=== PATIENT | male | born 1965 | race Caucasian/White ===

== ENCOUNTER 2020-05-02 12:02 | Emergency (ER) | payer OTHER, SELFPAY ==
[2020-05-02 12:51] VITALS: BP 147/64; PULSE 76; RESP 16; TEMP 36.1; O2SAT 96; BMI 56.9
--- NOTE | 2020-05-02 13:17 | ED.SKABFB ---
HPI - Skin/Abscess/Foreign Bdy General Chief complaint: Skin/Abscess/Foreign Body Stated complaint: rash Time Seen by Provider: 05/02/20 13:17 Source: patient Mode of arrival: ambulatory Limitations: no limitations History of Present Illness HPI narrative: 55 y/o male presenting with diffuse body itching. He states he was recently treated with permethrin for scabies. He states he used the treatment and washed his sheets however he still has itching all over, worse at night, worse in his feet, groin, buttocks, neck and head. He also reports nausea and central abdominal discomfort. He also reports a sore throat and swollen tonsils. He says his body is fighting some kind of infection and is overwhelmed by it. He denies fever, chills, vomiting, SOB, chest pain, urinary symptoms. He reports a rash on his right arm and neck. Related Data Home Medications Medication Instructions Recorded Confirmed baclofen 1 tab PO TID PRN 05/02/20 05/02/20 cholecalciferol (vitamin D3) 1 tab PO DAILY 05/02/20 05/02/20 cholecalciferol (vitamin D3) 1 tab PO DAILY 05/02/20 05/02/20 [Vitamin D3] clonidine HCl 1 tab PO TID 05/02/20 05/02/20 hydroxyzine pamoate PO 05/02/20 omeprazole 1 cap PO DAILY 05/02/20 05/02/20 permethrin 1 applic TOPICAL ONCE 05/02/20 05/02/20 quetiapine 1 tab PO BID 05/02/20 05/02/20 Previous Rx's Medication Instructions Recorded hydrocortisone 1 appl TOPICAL TID PRN #30 g 05/02/20 permethrin 1 appl TOPICAL ONCE 1 Days #60 g 05/02/20 Allergies Allergy/AdvReac Type Severity Reaction Status Date / Time vancomycin [Vancomycin] Allergy Mild HIVES Unverified 02/20/20 15:03 Review of Systems Review of Systems: Constitutional: No Fever, No Chills ENT/Mouth: + sore throat, No Rhinorrhea, No Swallowing Difficulty Eyes: No Eye Pain, No Swelling, No Redness Cardiovascular: No Chest Pain, No SOB, No Orthopnea, + Edema Respiratory: No Cough, No Sputum, No Wheezing, No dyspnea Gastrointestinal: +Nausea, No Vomiting, No Diarrhea, + abdominal Pain Genitourinary: No Dysuria, No Urinary Frequency, No Hematuria Musculoskeletal: No joint pain, + Myalgias Skin: + Skin Lesions, + rash Neuro: No Weakness, No Numbness, No Dizziness, + Headache Psych: + Anxiety/Panic, No Depression Heme/Lymph: No Bruising, No Lymphadenopathy Endocrine: No Polyuria, No Polydipsia PMF Past Medical History Attestation statement: The following information was validated with the patient. Medical History Arthritis Social History Social History Advance Directives: No Advance Directives Information Provided: No Physical Exam Vital Signs: Vital Signs: Last Vital Signs Temp 96.9 F 05/02/20 12:51 Pulse 76 05/02/20 12:51 Resp 16 05/02/20 12:51 BP 147/64 H 05/02/20 12:51 Pulse Ox 96 05/02/20 12:51 Body Mass Index 56.9 Appearance: Alert. Oriented X3. No acute distress. HEENT: normal inspection, no rashes or bites. CVS: Normal heart rate and rhythm. Pulses normal. Respiratory: No respiratory distress. Skin: Skin warm and dry. Normal skin color. Normal skin turgor. No rashes. Extremities: trace lower extremity edema, no rashes or lesions appreciated. Bottom of bilateral feet with dry flaky skin under toes. Neuro: Oriented X 3. No motor deficit. No sensory deficit. Course Course Course Narrative: 55 yo male presenting with multiple complaints. No rash or bites noted on exam. Doubt bed bugs. No evidence of current scabies infection or any other rash noted on exam. He is demanding blood work, urine test and strep throat test. Suspect psychogenic componenet. Reevaluation(s) Reevaluation #1: Lab work up was normal. Patient now stating that he did not read the instructions on the Permethrin and washed the treatment off after <1 hour. He is requesting repeat treatment. He is stable for discharge and will follow up with his doctor on Monday. MDM - Skin/Abscess/Foreign Bdy Lab Data Attestation: I reviewed the patient's lab results. Result diagrams: 05/02/20 13:53 05/02/20 13:53 Labs: Lab Results 11/28/20 11/28/20 11/28/20 Range/Units 13:40 13:53 13:53 WBC 7.5 (4.8-10.8) X10*3/uL RBC 4.31 L (4.60-5.80) X10*6/uL Hgb 12.0 L (14.0-18.0) g/dl Hct 36.6 L (42-52) % MCV 84.9 (80-98) fL MCH 27.8 (27.0-33.0) pg MCHC 32.8 (31.0-36.0) g/dl RDW 13.3 (11.0-16.0) % Plt Count 268 (160-400) X10*3/uL MPV 9.7 (9.4-12.4) fL Immature Gran % (Auto) 0.3 (0.0-0.4) % Neut % (Auto) 45.2 (45-73) % Lymph % (Auto) 45.3 H (20-40) % [place] % (Auto) 8.4 (2-11) % Eos % (Auto) 0.4 (0-4) % Baso % (Auto) 0.4 (0-2) % Lymph # (Auto) 3.4 (1.2-4.9) X10*3/uL [place] # (Auto) 0.6 (0.1-1.2) X10*3/uL Eos # (Auto) 0.0 (0.0-0.4) X10*3/uL Baso # (Auto) 0.0 (0.0-0.2) X10*3/uL Abs Immat Gran (auto) 0.02 (0.00-0.03) X10*3/uL Absolute Neuts (auto) 3.4 (2.0-8.3) X10*3/uL Absolute Nucleated RBC 0.000 (0.0-0.012) X10*3/uL Nucleated RBC % (auto) 0.0 (0.0-0.2) /100WBC Sodium 140 (135-145) mmol/L Potassium 4.3 (3.3-5.1) mmol/l Chloride 103 (96-108) mmol/L Carbon Dioxide 28 (22-29) mmol/L Anion Gap 13 (12-20) BUN 16 (9-16) mg/dL Creatinine 0.88 (0.5-1.4) mg/dL Estim Creat Clear Calc 140.0 Estimated GFR > 60 Random Glucose 89 (60-115) mg/dL Calcium 8.6 (8.4-10.2) mg/dL Total Bilirubin 0.5 (0.0-1.0) mg/dL Direct Bilirubin 0.2 (0.0-0.5) mg/dL AST 36 (5-37) U/L ALT 25 (0-40) U/L Alkaline Phosphatase 69 (39-117) U/L Total Protein 7.0 (6.5-8.0) g/dL Albumin 4.2 (3.5-5.0) g/dL Lipase 14 (8-78) U/L Urine Color YELLOW Urine Appearance CLEAR Urine pH 7.0 (5.0-8.0) Ur Specific [place] 1.010 (1.005-1.025) Urine Protein NEG (NEG-TRACE) MG/DL Urine Glucose (UA) NEG (NEG) MG/DL Urine Ketones NEG (NEG) MG/DL Urine Blood TRACE (NEG) Urine Nitrite NEG (NEG) Ur Leukocyte Esterase NEG (NEG) Urine RBC 0-2 (0) /HPF Urine WBC 0 (0-4) /HPF Ur Squamous Epith Cells TRACE /LPF Urine Bacteria NONE /LPF Discharge Plan Discharge Clinical Impression: Itching Patient Disposition: Home, Self-Care Instructions: Scabies (ED), Itchy Skin (ED) Additional Instructions: Your lab workup today was unremarkable. No signs of infection. Because you did not appropriately treat yourself with the Permethrin another dose has been sent to your pharmacy. Be sure to read the instructions carefully. Follow up with your doctor on Monday. Prescriptions: New permethrin 5 % cream 1 appl topical ONCE 1 Days Qty: 60 RF: 0 hydrocortisone 2.5 % cream 1 appl topical TID PRN (Reason: itching) Qty: 30 RF: 0 No Action clonidine HCl 0.1 mg tablet 1 tab PO TID RF: 0 quetiapine 200 mg tablet 1 tab PO BID RF: 0 permethrin 5 % cream 1 applic topical ONCE RF: 0 hydroxyzine pamoate 50 mg capsule PO RF: 0 baclofen 10 mg tablet 1 tab PO TID PRN (Reason: muscle spasm) RF: 0 omeprazole 20 mg capsule,delayed release(DR/EC) 1 cap PO DAILY RF: 0 cholecalciferol (vitamin D3) 50 mcg (2,000 unit) tablet 1 tab PO DAILY RF: 0 cholecalciferol (vitamin D3) [Vitamin D3] 50 mcg (2,000 unit) tablet 1 tab PO DAILY RF: 0
[2020-05-02 13:48] LABS: Glucose Urine UA NEG (NEG); Leukocyte Esterase Urine NEG (NEG); Nitrite Urine NEG (NEG); Urine Blood TRACE (NEG); Urine Ketones NEG (NEG); Urine Protein NEG (NEG-TRACE)
[2020-05-02 13:49] LABS: Appearance Urine CLEAR; Color Urine YELLOW
[2020-05-02 13:57] LABS: MANUAL DIFF FLAG NO
[2020-05-02 13:58] LABS: RBC Urine 0-2 /HPF (0); Squamous Epithelial Cell Urine TRACE /LPF; WBC Urine 0 /HPF (0-4)
[2020-05-02 13:58] LABS: Basophils Percent Auto 0.4 % (0-2); Eosinophils Percent Auto 0.4 % (0-4); Hematocrit 36.6 % (42-52); Imm Gran Abs Auto 0.02 X10*3/uL (0.00-0.03); Imm Gran Pct Auto 0.3 % (0.0-0.4); Lymphocytes Absolute Auto 3.4 X10*3/uL (1.2-4.9); Lymphocytes Percent Auto 45.3 % (20-40); Mean Corpuscular HGB Conc 32.8 g/dl (31.0-36.0); Mean Corpuscular Hemoglobin 27.8 pg (27.0-33.0); Mean Corpuscular Volume 84.9 fL (80-98); Mean Platelet Volume 9.7 fL (9.4-12.4); Monocytes Absolute Auto 0.6 X10*3/uL (0.1-1.2); Monocytes Percent Auto 8.4 % (2-11); Neutrophils Absolute Auto 3.4 X10*3/uL (2.0-8.3); Neutrophils Percent Auto 45.2 % (45-73); Platelet Count 268 X10*3/uL (160-400); Red Blood Count 4.31 X10*6/uL (4.60-5.80); Red Cell Distribution Width 13.3 % (11.0-16.0); White Blood Count 7.5 X10*3/uL (4.8-10.8)
[2020-05-02 14:23] LABS: Alanine Aminotransferase 25 U/L (0-40); Albumin Level 4.2 g/dL (3.5-5.0); Alkaline Phosphatase 69 U/L (39-117); Anion Gap 13 (12-20); Aspartate Amino Transferase 36 U/L (5-37); Bilirubin Direct 0.2 mg/dL (0.0-0.5); Bilirubin Total 0.5 mg/dL (0.0-1.0); Blood Urea Nitrogen 16 mg/dL (9-16); Calcium 8.6 mg/dL (8.4-10.2); Carbon Dioxide 28 mmol/L (22-29); Chloride 103 mmol/L (96-108); Estimated Glomerular Filt Rate > 60; Glucose Random 89 mg/dL (60-115); Lipase 14 U/L (8-78); Potassium 4.3 mmol/l (3.3-5.1); Sodium 140 mmol/L (135-145)
[2020-05-02 15:10] VITALS: BP 139/80; PULSE 60; RESP 18; TEMP 36.8; O2SAT 97
== END 2020-05-02 15:18 | disposition home or self-care (01) ==
PROVIDERS: Physician Assistant; Emergency Provider Internal Medicine; PCP Family Medicine
DX: L25.9 Unspecified contact dermatitis, unspecified cause (principal); Z79.899 Other long term (current) drug therapy
CPT/HCPCS: 36415; 80048; 80076; 81001; 83690; 85025; 87071; 87880; 99283

== ENCOUNTER 2021-03-22 13:56 | Inpatient (IN) | payer OTHER, SELFPAY ==
[2021-03-22 14:05] VITALS: BP 175/82; PULSE 95; RESP 18; TEMP 36.6; O2SAT 99; BMI 21.9
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
[2021-03-22 14:48] VITALS: BP 137/79; PULSE 74; RESP 16; TEMP 37.1; O2SAT 96
--- NOTE | 2021-03-22 16:07 | PHA.MEDREC ---
Pharmacy Consult ? Medication Reconciliation Pharmacy has completed the medication reconciliation. Maria Teresa Coyne, PharmD [phone]
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
[2021-03-22 16:51] LABS: MANUAL DIFF FLAG NO
[2021-03-22 16:52] LABS: COVID-19 Test Negative (Negative)
[2021-03-22 16:55] LABS: Basophils Percent Auto 0.2 % (0-2); Hematocrit 34.1 % (42-52); Hemoglobin 11.3 g/dl (14.0-18.0); Imm Gran Abs Auto 0.04 X10*3/uL (0.00-0.03); Imm Gran Pct Auto 0.4 % (0.0-0.4); Lymphocytes Absolute Auto 1.5 X10*3/uL (1.2-4.9); Lymphocytes Percent Auto 15.6 % (20-40); Mean Corpuscular HGB Conc 33.1 g/dl (31.0-36.0); Mean Corpuscular Hemoglobin 27.8 pg (27.0-33.0); Mean Platelet Volume 10.2 fL (9.4-12.4); Monocytes Absolute Auto 0.8 X10*3/uL (0.1-1.2); Monocytes Percent Auto 8.8 % (2-11); Platelet Count 236 X10*3/uL (160-400); Red Blood Count 4.06 X10*6/uL (4.60-5.80); Red Cell Distribution Width 13.3 % (11.0-16.0); White Blood Count 9.4 X10*3/uL (4.8-10.8)
[2021-03-22 17:08] LABS: Ethanol < 10 mg/dL
[2021-03-22 17:10] LABS: Alanine Aminotransferase 34 U/L (0-40); Albumin Level 3.8 g/dL (3.5-5.0); Alkaline Phosphatase 68 U/L (39-117); Anion Gap 11 (12-20); Aspartate Amino Transferase 53 U/L (5-37); Bilirubin Total 0.4 mg/dL (0.0-1.0); Blood Urea Nitrogen 9 mg/dL (9-16); Calcium 8.7 mg/dL (8.4-10.2); Carbon Dioxide 27 mmol/L (22-29); Chloride 106 mmol/L (96-108); Creatinine Clr Calc Pharmacy 71.9; Estimated Glomerular Filt Rate > 60; Glucose Random 152 mg/dL (60-115); Potassium 3.8 mmol/L (3.3-5.1); Sodium 140 mmol/L (135-145); Total Protein 6.7 g/dL (6.5-8.0)
[2021-03-22] MEDS: Acetaminophen 325 MG TABLET 650 MG PO (17:30)
[2021-03-22 20:00] LABS: Amphetamine Screen Urine Not Detected (Not Detect); Barbiturates, Urine POSITIVE (Not Detect); Benzodiazepines Screen Urine POSITIVE (Not Detect); Cannabinoid Screen Urine Not Detected (Not Detect); Cocaine Screen Urine POSITIVE (Not Detect); Fentanyl, urine POSITIVE (Not Detect); Opiate Screen Urine POSITIVE (Not Detect); Phencyclidine Screen Urine Not Detected (Not Detect)
[2021-03-22 20:05] VITALS: BP 137/76; PULSE 61
[2021-03-22] MEDS: QUEtiapine Fumarate 200 MG TABLET PO (20:05)
[2021-03-22] MEDS: cloNIDine HCL 0.1 MG TABLET PO (20:05)
[2021-03-22] MEDS: Baclofen 10 MG TABLET PO (20:06)
[2021-03-22] MEDS: Zolpidem Tartrate 5 MG TABLET PO (20:06)
--- NOTE | 2021-03-23 | ECG_ITS ---
Test Reason : MED CLEARANCE Blood Pressure : / mmHG Vent. Rate : 047 BPM Atrial Rate : 047 BPM P-R Int : 160 ms QRS Dur : 094 ms QT Int : 522 ms P-R-T Axes : 075 063 076 degrees QTc Int : 461 ms Sinus bradycardia Nonspecific T wave abnormality Prolonged QT Abnormal ECG When compared with ECG of 23-MAR-2021 14:07, No significant change was found Referred By: Anjelica Negro Electronically Signed By:GAUTAM LOERA MD
[2021-03-23 04:42] LABS: Appearance Urine TURBID; Color Urine YELLOW; Glucose Urine UA NEG (NEG); Leukocyte Esterase Urine NEG (NEG); Nitrite Urine NEG (NEG); Specific Gravity - Urine >= 1.030 (1.005-1.025); Urine Blood NEG (NEG); Urine Ketones 5 MG/DL (NEG); Urine Protein TRACE MG/DL (NEG-TRACE)
[2021-03-23 04:58] LABS: RBC Urine 0 /HPF (0); WBC Urine 0 /HPF (0-4)
[2021-03-23 04:59] LABS: Amorphous Sediment Urine 4+ /LPF; Calcium Oxalate Crystals Urine 3+ /LPF; Mucus Urine TRACE /LPF
--- NOTE | 2021-03-23 06:28 | PC.NURSE ---
Patient slept through the night, no distress observed/reported, medication compliant, methadone dose verified/faxed to pharmacy/pending provider's approval, behavior appropriate, patient got assessed by [facility], disposition is section 12 inpatient bed search, will continue to monitor.
--- NOTE | 2021-03-23 07:03 | PC.NURSE ---
patient appears to remain asleep at present respirations are even and unlabored patient appears in no distress
[2021-03-23 08:08] VITALS: BP 137/76; PULSE 61
[2021-03-23] MEDS: cloNIDine HCL 0.1 MG TABLET PO ×2 (08:08→20:22)
[2021-03-23] MEDS: QUEtiapine Fumarate 200 MG TABLET PO ×2 (08:08→20:22)
[2021-03-23] MEDS: Cholecalciferol (Vitamin D3) 25 MCG TABLET 50 MCG PO (08:08)
[2021-03-23] MEDS: methADONE HCl 20 MG/2 ML ORAL.CONC 75 MG PO (08:09)
[2021-03-23 08:52] VITALS: BP 115/55; PULSE 52; RESP 14; TEMP 36.8; O2SAT 98
[2021-03-23] MEDS: Acetaminophen 325 MG TABLET 650 MG PO (09:09)
[2021-03-23 15:13] VITALS: BP 115/55; PULSE 52
[2021-03-23 18:08] VITALS: BP 124/75; PULSE 63; RESP 16; TEMP 36.3; O2SAT 97
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
[2021-03-23 20:22] VITALS: BP 128/70; PULSE 67
[2021-03-23] MEDS: hydrOXYzine HCL 25 MG TABLET PO (20:24)
[2021-03-24 06:00] VITALS: BP 104/56; PULSE 58; RESP 16; TEMP 36.3; O2SAT 98
[2021-03-24 08:12] VITALS: BP 119/65; PULSE 65
[2021-03-24] MEDS: QUEtiapine Fumarate 200 MG TABLET PO ×2 (08:12→20:40)
[2021-03-24] MEDS: Cholecalciferol (Vitamin D3) 25 MCG TABLET 50 MCG PO (08:12)
[2021-03-24] MEDS: cloNIDine HCL 0.1 MG TABLET PO ×2 (08:12→20:41)
[2021-03-24] MEDS: methADONE HCl 20 MG/2 ML ORAL.CONC 75 MG PO (08:13)
[2021-03-24 08:54] LABS: Cholesterol 155 mg/dL; Estimated Average Glucose 111 mg/dL; HDL Cholesterol 55 mg/dL; Hemoglobin A1c % 5.5 %; LDL Cholesterol Calculated 80 mg/dl; Triglycerides 103 mg/dL
[2021-03-24 09:14] LABS: Thyroid Stimulating Hormone 1.28 uIU/mL (0.32-4.0)
[2021-03-24 09:36] LABS: Folate 11.8 ng/mL (> or = 4.0); Vitamin B12 485 pg/mL (200-900)
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
[2021-03-24] MEDS: OXcarbazepine 300 MG TABLET 600 MG PO (20:40)
[2021-03-24 20:41] VITALS: BP 124/77; PULSE 54
[2021-03-24 20:44] VITALS: BP 124/77; PULSE 54; RESP 16; TEMP 36.4; O2SAT 100
[2021-03-25 06:00] VITALS: BP 106/59; PULSE 54; RESP 16; TEMP 36.3; O2SAT 97
[2021-03-25] MEDS: methADONE HCl 20 MG/2 ML ORAL.CONC 75 MG PO (08:23)
[2021-03-25] MEDS: Cholecalciferol (Vitamin D3) 25 MCG TABLET 50 MCG PO (08:23)
[2021-03-25] MEDS: QUEtiapine Fumarate 200 MG TABLET PO ×2 (08:23→21:01)
--- NOTE | 2021-03-25 09:24 | HO.PSYCHPN ---
Subjective Subjective Date of Service: 03/25/21 Reason For Visit: SI Subjective Notes: Conditional Voluntary Interim History: Pt reports feeling calmer. He states he does not have any thoughts nor plan nor intent to hurt his landlord. Pt reports sleeping fine. He denies SI/HI. He denies symptoms of depression. We discussed substance use, however, pt again reports that he does not think he has any substance use disorder. Pt mostly in his room. He was encouraged to attend assigned groups. stable for discharge soon. Medication Compliance: Yes Review of Systems Review of Systems Constitutional: No Fever, No Chills ENT/Mouth: No sore throat, No Rhinorrhea Eyes: No Eye Pain, No Swelling, No Redness Cardiovascular: No Chest Pain, No SOB Respiratory: No Cough, No Sputum Gastrointestinal: No Nausea, No Vomiting, No Diarrhea, No abdominal Pain Genitourinary: No Dysuria, No Hematuria Musculoskeletal: No joint pain, No Myalgias, No Joint Swelling Skin: No Skin Lesions, No rash Neuro: No Weakness, No Numbness, No Loss of Consciousness, No Dizziness, No Headache Psych: Positive Anxiety, No Depression, positive homicidal ideation and thoughts of harming others, positive polysubstance abuse Heme/Lymph: No Bruising, No Bleeding,No Lymphadenopathy Endocrine: No Polyuria, No Polydipsia Yes all other systems are reviewed and are negative Constitutional: Reports poor appetite and Reports weight loss Eyes: Reports no additional eye complaints Denies neck pain Cardiovascular: Denies chest pain, Denies chest pain at rest, Denies chest pain with activity, Denies rapid heart rate, Denies irregular heart rhythm, Denies lightheadedness, Denies dyspnea and Denies dyspnea on exertion Respiratory: Denies dyspnea and Denies dyspnea on exertion Gastrointestinal: Denies bloating, Denies constipation, Denies GI cramping, Denies early satiety and Denies hematemesis Musculoskeletal: Denies muscle cramps and Denies neck pain Mental Status Exam Mental Status Exam Narrative: Appearance: thin, casually groomed, fair hygiene in NAD Behavior: superficially cooperative. psychomotor: no agitation or retardation noted Speech:clear, normal rate/rhythm/volume, spontaneous Thought process:linear Thought content:no signs of psychosis, feeling less irritable, not wanting to hurt others Mood: better Affect: calmer, non labile SI:denies HI:passive, denies plan or intent VH/AH:denies- no signs of internally preoccupied Delusions:none Insight/judgment:fair x 2. Memory/cog: alert, oriented x 4. grossly intact to conversational testing. Diagnostics Vital Signs (24Hr): Vital Signs - 24 hr 03/25/21 17:09 03/25/21 18:00 03/25/21 21:01 Temperature Pulse Rate 63 107 H 61 Respiratory Rate Blood Pressure 112/55 L 112/55 L 109/69 Pulse Oximetry 03/26/21 06:00 Temperature 97.4 F Pulse Rate 56 Respiratory Rate 18 Blood Pressure 98/50 L Pulse Oximetry 98 Body Mass Index 21.9 Labs Results: 03/22/21 16:44 03/22/21 16:44 Labs: Laboratory Results - last 48 hr 03/24/21 08:01 Vitamin B12 485 Folate 11.8 Medications Medications Current Medications Acetaminophen (Acetaminophen 325 Mg Tablet) 650 mg PO Q6H PRN PRN Reason: Headache/Pain Mild Scale (1-3) Al Hydroxide/Mg Hydroxide (Magnesium Hydrox/Alum Hydrox 30 Ml Oral.Susp) 30 ml PO Q6H PRN PRN Reason: Heartburn/Nausea Last Admin: 03/25/21 17:17 Dose: 30 ml Documented by: Baclofen (Baclofen 10 Mg Tablet) 10 mg PO TID PRN PRN Reason: muscle spasm Last Admin: 03/25/21 21:03 Dose: 10 mg Documented by: Clonidine HCl (Clonidine Hcl 0.1 Mg Tablet) 0.1 mg PO TID [facility]; Protocol Last Admin: 03/26/21 09:19 Dose: Not Given Documented by: Hydroxyzine HCl (Hydroxyzine Hcl 25 Mg Tablet) 25 mg PO BEDTIME PRN PRN Reason: Anxiety Last Admin: 03/23/21 20:24 Dose: 25 mg Documented by: Ivermectin (Ivermectin 3 Mg Tablet) 15 mg PO Fr@0900 [facility] Last Admin: 03/26/21 09:17 Dose: 15 mg Documented by: Magnesium Hydroxide (Milk Of Magnesia 30 Ml Oral.Susp) 30 ml PO DAILY PRN PRN Reason: Constipation Methadone HCl (Methadone Hcl 20 Mg/2 Ml Oral.Conc) 75 mg PO DAILY [facility] Last Admin: 03/26/21 09:17 Dose: 75 mg Documented by: Omeprazole (Omeprazole 20 Mg Capsule.Dr) 20 mg PO DAILY@0630 [facility] Last Admin: 03/26/21 06:29 Dose: 20 mg Documented by: Oxcarbazepine (Oxcarbazepine 300 Mg Tablet) 600 mg PO BID [facility] Last Admin: 03/26/21 09:19 Dose: Not Given Documented by: Quetiapine Fumarate (Quetiapine Fumarate 200 Mg Tablet) 200 mg PO BID [facility] Last Admin: 03/26/21 09:17 Dose: 200 mg Documented by: Trazodone HCl (Trazodone Hcl 50 Mg Tablet) 50 mg PO BEDTIME PRN PRN Reason: Insomnia Vitamin D (Cholecalciferol (Vitamin D3) 25 Mcg Tablet) 50 mcg PO DAILY [facility] Last Admin: 03/26/21 09:17 Dose: 50 mcg Documented by: Allergies Allergies Allergy/AdvReac Type Severity Reaction Status Date / Time vancomycin [Vancomycin] Allergy Mild HIVES Verified 05/28/20 10:00 Assessment & Plan Assessment & Plan (1) Substance induced mood disorder: Status: Acute Code(s): F19.94 - Other psychoactive substance use, unspecified with psychoactive substance-induced mood disorder (2) Opioid use disorder, moderate, dependence: Status: Acute Code(s): F11.20 - Opioid dependence, uncomplicated (3) Cocaine use disorder, moderate, dependence: Status: Acute Code(s): F14.20 - Cocaine dependence, uncomplicated Assessment and Plan: Mr. Walls is 55 year-old male with hx of polysubstance use disorder. Pt self-presented to ED, reporting HI towards landlord. In the ED his utox was positive for cocaine, opioids and fentanyl. On the unit, pt presents as calmer, still angry about landlord not returning his deposit. He minimizes and declines referrals for substance use treatment. PLAN: 1. Admit to M5 2. We discussed starting mood stabilizer for impulsive, explosive behaviors. Pt with hx of hep c. we discussed starting trileptal instead of depakote. 3. Obtain collateral information 4. Aftercare planning I spent minutes with the patient and/or on the patient floor today, greater than?50% of which was spent counseling/coordinating care. Reason for contiued inpatient stay Substantial Risk for: harm to others
[2021-03-25 17:09] VITALS: BP 112/55; PULSE 63
[2021-03-25] MEDS: cloNIDine HCL 0.1 MG TABLET PO ×2 (17:09→21:01)
[2021-03-25] MEDS: Magnesium Hydrox/Alum Hydrox 30 ML ORAL.SUSP PO (17:17)
[2021-03-25 18:00] VITALS: BP 112/55; PULSE 107
[2021-03-25 21:01] VITALS: BP 109/69; PULSE 61
[2021-03-25] MEDS: OXcarbazepine 300 MG TABLET 600 MG PO (21:01)
[2021-03-25] MEDS: Baclofen 10 MG TABLET PO (21:03)
[2021-03-26 06:00] VITALS: BP 98/50; PULSE 56; RESP 18; TEMP 36.3; O2SAT 98
[2021-03-26] MEDS: Omeprazole 20 MG CAPSULE.DR PO (06:29)
[2021-03-26] MEDS: Cholecalciferol (Vitamin D3) 25 MCG TABLET 50 MCG PO (09:17)
[2021-03-26] MEDS: methADONE HCl 20 MG/2 ML ORAL.CONC 75 MG PO (09:17)
[2021-03-26] MEDS: QUEtiapine Fumarate 200 MG TABLET PO ×2 (09:17→20:24)
[2021-03-26] MEDS: Baclofen 10 MG TABLET PO (10:49)
[2021-03-26] MEDS: OXcarbazepine 300 MG TABLET 600 MG PO (20:23)
[2021-03-26 20:24] VITALS: BP 111/57; PULSE 69
[2021-03-26] MEDS: cloNIDine HCL 0.1 MG TABLET PO (20:24)
[2021-03-27 06:00] VITALS: BP 100/61; PULSE 53; TEMP 36.1; O2SAT 96
[2021-03-27] MEDS: QUEtiapine Fumarate 200 MG TABLET PO ×2 (09:22→20:16)
[2021-03-27 09:23] VITALS: BP 130/61; PULSE 56
[2021-03-27] MEDS: Omeprazole 20 MG CAPSULE.DR PO (09:23)
[2021-03-27] MEDS: cloNIDine HCL 0.1 MG TABLET PO ×3 (09:23→20:16)
[2021-03-27] MEDS: Cholecalciferol (Vitamin D3) 25 MCG TABLET 50 MCG PO (09:23)
[2021-03-27] MEDS: methADONE HCl 20 MG/2 ML ORAL.CONC 75 MG PO (09:24)
--- NOTE | 2021-03-27 10:49 | HO.PSYCHPN ---
Subjective Subjective Date of Service: 03/26/21 Reason For Visit: SI Interim History: pt seen on 03/26 pt reports doing better; says thoughts of getting revenge on lanlord have abated and while he can still get angry talking about it denies any intention or plans saying he wants to move on with his life, enjoy his family. He skipped AM meds today still ambivalent about meds worried about their unknown effect; pt discussed further, data analyst report writer provided additional education and pt agreed to continue with med trial. No SI or HI; no AVH. Mental Status Exam Mental Status Exam Narrative: Appearance: thin, casually groomed, fair hygiene in NAD Behavior: cooperative. psychomotor: no agitation or retardation noted Speech:clear, normal rate/rhythm/volume, spontaneous Thought process:linear Thought content:on treatment Mood: better Affect: congruent SI:denies HI:passive, denies plan or intent VH/AH:denies- no signs of internally preoccupied Delusions:none Insight/judgment:fair ? Memory/cog: alert, oriented x 4. grossly intact to conversational testing. Diagnostics Vital Signs (24Hr): Vital Signs - 24 hr 03/26/21 20:24 03/27/21 06:00 03/27/21 09:23 Temperature 97.0 F Pulse Rate 69 53 56 Blood Pressure 111/57 L 100/61 130/61 Pulse Oximetry 96 Body Mass Index 21.9 Labs Results: 03/22/21 16:44 03/22/21 16:44 Medications Medications Current Medications Acetaminophen (Acetaminophen 325 Mg Tablet) 650 mg PO Q6H PRN PRN Reason: Headache/Pain Mild Scale (1-3) Al Hydroxide/Mg Hydroxide (Magnesium Hydrox/Alum Hydrox 30 Ml Oral.Susp) 30 ml PO Q6H PRN PRN Reason: Heartburn/Nausea Last Admin: 03/25/21 17:17 Dose: 30 ml Documented by: Baclofen (Baclofen 10 Mg Tablet) 10 mg PO TID PRN PRN Reason: muscle spasm Last Admin: 03/26/21 10:49 Dose: 10 mg Documented by: Clonidine HCl (Clonidine Hcl 0.1 Mg Tablet) 0.1 mg PO TID [facility]; Protocol Last Admin: 03/27/21 09:23 Dose: 0.1 mg Documented by: Hydroxyzine HCl (Hydroxyzine Hcl 25 Mg Tablet) 25 mg PO BEDTIME PRN PRN Reason: Anxiety Last Admin: 03/23/21 20:24 Dose: 25 mg Documented by: Ivermectin (Ivermectin 3 Mg Tablet) 15 mg PO Fr@0900 [facility] Last Admin: 03/26/21 09:17 Dose: 15 mg Documented by: Magnesium Hydroxide (Milk Of Magnesia 30 Ml Oral.Susp) 30 ml PO DAILY PRN PRN Reason: Constipation Methadone HCl (Methadone Hcl 20 Mg/2 Ml Oral.Conc) 75 mg PO DAILY [facility] Last Admin: 03/27/21 09:24 Dose: 75 mg Documented by: Omeprazole (Omeprazole 20 Mg Capsule.Dr) 20 mg PO DAILY@0630 [facility] Last Admin: 03/27/21 09:23 Dose: 20 mg Documented by: Oxcarbazepine (Oxcarbazepine 300 Mg Tablet) 600 mg PO BID [facility] Last Admin: 03/27/21 10:16 Dose: Not Given Documented by: Quetiapine Fumarate (Quetiapine Fumarate 200 Mg Tablet) 200 mg PO BID [facility] Last Admin: 03/27/21 09:22 Dose: 200 mg Documented by: Trazodone HCl (Trazodone Hcl 50 Mg Tablet) 50 mg PO BEDTIME PRN PRN Reason: Insomnia Vitamin D (Cholecalciferol (Vitamin D3) 25 Mcg Tablet) 50 mcg PO DAILY [facility] Last Admin: 03/27/21 09:23 Dose: 50 mcg Documented by: Allergies Allergies Allergy/AdvReac Type Severity Reaction Status Date / Time vancomycin [Vancomycin] Allergy Mild HIVES Verified 05/28/20 10:00 Assessment & Plan Assessment & Plan (1) Substance induced mood disorder: Status: Acute Code(s): F19.94 - Other psychoactive substance use, unspecified with psychoactive substance-induced mood disorder (2) Opioid use disorder, moderate, dependence: Status: Acute Code(s): F11.20 - Opioid dependence, uncomplicated (3) Cocaine use disorder, moderate, dependence: Status: Acute Code(s): F14.20 - Cocaine dependence, uncomplicated Assessment and Plan: Mr. Walls is 55 year-old male with hx of polysubstance use disorder. Pt self-presented to ED, reporting HI towards landlord. In the ED his utox was positive for cocaine, opioids and fentanyl. On the unit, pt presents as calmer, still angry about landlord not returning his deposit. He minimizes and declines referrals for substance use treatment. pt mood improved; no SI/HI; will continue with mood stabilizer; working on perspective that [employer] dishonesty is her problem and he does not need to get embroiled, risk his own safety and future (shared how formerly, he's been vicitmized by others and it became a matter of survival to respond to challenges). PLAN: 1. Admit to M5 2. Trileptal mood stabilizer for impulsive, explosive behaviors. Pt with hx of hep c. 3. Obtain collateral information 4. Aftercare planning I spent time with the patient greater than?50% of time focused on treatment. Reason for contiued inpatient stay Substantial Risk for: med/psych decompensation
[2021-03-27 15:07] VITALS: BP 106/65; PULSE 60
[2021-03-27 18:00] VITALS: BP 110/59; PULSE 84
--- NOTE | 2021-03-27 19:15 | HO.PSYCHPN ---
Subjective Subjective Date of Service: 03/27/21 Reason For Visit: SI Subjective Notes: Conditional Voluntary Medical Problems Affecting Mental Status: No Interim History: Nestor did not take trileptal this morning. He reports that it makes him feel worse. He would like to try a lower dose. He has not been sleeping that well and he has a poor appetite. Medication Compliance: Intermittent Side effects from medications: No Attending Groups: Intermittent Review of Systems Acute medical concerns: No Mental Status Exam Mental Status Exam Narrative: Appearance: thin, casually groomed, fair hygiene in NAD Behavior: cooperative. psychomotor: no agitation or retardation noted Speech:clear, normal rate/rhythm/volume, spontaneous Thought process:linear Thought content:on treatment Mood: better Affect: congruent SI:denies HI:passive, denies plan or intent VH/AH:denies- no signs of internally preoccupied Delusions:none Insight/judgment:fair ? Memory/cog: alert, oriented x 4. grossly intact to conversational testing. Diagnostics Vital Signs (24Hr): Vital Signs - 24 hr 03/26/21 20:24 03/27/21 06:00 03/27/21 09:23 Temperature 97.0 F Pulse Rate 69 53 56 Blood Pressure 111/57 L 100/61 130/61 Pulse Oximetry 96 03/27/21 15:07 03/27/21 18:00 Temperature Pulse Rate 60 84 Blood Pressure 106/65 110/59 L Pulse Oximetry Body Mass Index 21.9 Labs Results: 03/22/21 16:44 03/22/21 16:44 Medications Medications Current Medications Acetaminophen (Acetaminophen 325 Mg Tablet) 650 mg PO Q6H PRN PRN Reason: Headache/Pain Mild Scale (1-3) Al Hydroxide/Mg Hydroxide (Magnesium Hydrox/Alum Hydrox 30 Ml Oral.Susp) 30 ml PO Q6H PRN PRN Reason: Heartburn/Nausea Last Admin: 03/25/21 17:17 Dose: 30 ml Documented by: Baclofen (Baclofen 10 Mg Tablet) 10 mg PO TID PRN PRN Reason: muscle spasm Last Admin: 03/26/21 10:49 Dose: 10 mg Documented by: Clonidine HCl (Clonidine Hcl 0.1 Mg Tablet) 0.1 mg PO TID [facility]; Protocol Last Admin: 03/27/21 15:07 Dose: 0.1 mg Documented by: Hydroxyzine HCl (Hydroxyzine Hcl 25 Mg Tablet) 25 mg PO BEDTIME PRN PRN Reason: Anxiety Last Admin: 03/23/21 20:24 Dose: 25 mg Documented by: Ivermectin (Ivermectin 3 Mg Tablet) 15 mg PO Fr@0900 [facility] Last Admin: 03/26/21 09:17 Dose: 15 mg Documented by: Magnesium Hydroxide (Milk Of Magnesia 30 Ml Oral.Susp) 30 ml PO DAILY PRN PRN Reason: Constipation Methadone HCl (Methadone Hcl 20 Mg/2 Ml Oral.Conc) 75 mg PO DAILY [facility] Last Admin: 03/27/21 09:24 Dose: 75 mg Documented by: Omeprazole (Omeprazole 20 Mg Capsule.Dr) 20 mg PO DAILY@0630 [facility] Last Admin: 03/27/21 09:23 Dose: 20 mg Documented by: Quetiapine Fumarate (Quetiapine Fumarate 200 Mg Tablet) 200 mg PO BID [facility] Last Admin: 03/27/21 09:22 Dose: 200 mg Documented by: Trazodone HCl (Trazodone Hcl 50 Mg Tablet) 50 mg PO BEDTIME PRN PRN Reason: Insomnia Vitamin D (Cholecalciferol (Vitamin D3) 25 Mcg Tablet) 50 mcg PO DAILY [facility] Last Admin: 03/27/21 09:23 Dose: 50 mcg Documented by: Allergies Allergies Allergy/AdvReac Type Severity Reaction Status Date / Time vancomycin [Vancomycin] Allergy Mild HIVES Verified 05/28/20 10:00 Assessment & Plan Assessment & Plan (1) Substance induced mood disorder: Status: Acute Code(s): F19.94 - Other psychoactive substance use, unspecified with psychoactive substance-induced mood disorder (2) Opioid use disorder, moderate, dependence: Status: Acute Code(s): F11.20 - Opioid dependence, uncomplicated (3) Cocaine use disorder, moderate, dependence: Status: Acute Code(s): F14.20 - Cocaine dependence, uncomplicated Assessment and Plan: Mr. Walls is 55 year-old male with hx of polysubstance use disorder. Pt self-presented to ED, reporting HI towards landlord. In the ED his utox was positive for cocaine, opioids and fentanyl. On the unit, pt presents as calmer, still angry about landlord not returning his deposit. He minimizes and declines referrals for substance use treatment. pt mood improved; no SI/HI; will continue with mood stabilizer; working on perspective that Land[employer] dishonesty is her problem and he does not need to get embroiled, risk his own safety and future (shared how formerly, he's been vicitmized by others and it became a matter of survival to respond to challenges). PLAN: 1. Admit to M5 2. Trileptal mood stabilizer for impulsive, explosive behaviors. Pt with hx of hep c. 3. Obtain collateral information 4. Aftercare planning Lower trileptal No other changes to plan I spent ___10___ minutes with the patient and/or on the patient floor today, greater than?50% of which was spent counseling/coordinating care. Patient educated on: medication risk/benefits Informed Consent: further education needed Reason for contiued inpatient stay Substantial Risk for: rapid decompensation
[2021-03-27 20:16] VITALS: BP 112/64; PULSE 60
[2021-03-28 06:00] VITALS: BP 89/56; PULSE 60; RESP 16; TEMP 36.2; O2SAT 98
[2021-03-28] MEDS: Omeprazole 20 MG CAPSULE.DR PO (08:24)
[2021-03-28] MEDS: methADONE HCl 20 MG/2 ML ORAL.CONC 75 MG PO (08:24)
[2021-03-28] MEDS: Cholecalciferol (Vitamin D3) 25 MCG TABLET 50 MCG PO (08:24)
[2021-03-28] MEDS: QUEtiapine Fumarate 200 MG TABLET PO ×2 (08:25→20:03)
[2021-03-28 15:13] VITALS: BP 111/63; PULSE 65
[2021-03-28] MEDS: cloNIDine HCL 0.1 MG TABLET PO ×2 (15:13→20:03)
[2021-03-28] MEDS: Baclofen 10 MG TABLET PO ×2 (15:13→20:54)
[2021-03-28 16:53] VITALS: BP 106/55; PULSE 57; RESP 16; TEMP 36.8; O2SAT 100
[2021-03-28 17:49] VITALS: BP 106/55; PULSE 57; RESP 16; TEMP 36.8; O2SAT 57
--- NOTE | 2021-03-28 19:07 | HO.PSYCHPN ---
Subjective Subjective Date of Service: 03/28/21 Reason For Visit: SI Subjective Notes: Conditional Voluntary Medical Problems Affecting Mental Status: No Interim History: Nestor had no complaints. He is very inconsistent in his willingness to take medications. He was dismissive of this script writer. Medication Compliance: Intermittent Attending Groups: No Review of Systems Acute medical concerns: No Mental Status Exam Mental Status Exam Narrative: Appearance: thin, casually groomed, fair hygiene in NAD Behavior: cooperative. psychomotor: no agitation or retardation noted Speech:clear, normal rate/rhythm/volume, spontaneous Thought process:linear Thought content:on treatment Mood: better Affect: congruent SI:denies HI:passive, denies plan or intent VH/AH:denies- no signs of internally preoccupied Delusions:none Insight/judgment:fair ? Memory/cog: alert, oriented x 4. grossly intact to conversational testing. Diagnostics Vital Signs (24Hr): Vital Signs - 24 hr 03/27/21 20:16 03/28/21 06:00 03/28/21 15:13 Temperature 97.2 F Pulse Rate 60 60 65 Respiratory Rate 16 Blood Pressure 112/64 89/56 L 111/63 Pulse Oximetry 98 03/28/21 16:53 03/28/21 17:49 Temperature 98.3 F 98.3 F Pulse Rate 57 57 Respiratory Rate 16 16 Blood Pressure 106/55 L 106/55 L Pulse Oximetry 100 57 L Body Mass Index 21.9 Labs Results: 03/22/21 16:44 03/22/21 16:44 Medications Medications Current Medications Acetaminophen (Acetaminophen 325 Mg Tablet) 650 mg PO Q6H PRN PRN Reason: Headache/Pain Mild Scale (1-3) Al Hydroxide/Mg Hydroxide (Magnesium Hydrox/Alum Hydrox 30 Ml Oral.Susp) 30 ml PO Q6H PRN PRN Reason: Heartburn/Nausea Last Admin: 03/25/21 17:17 Dose: 30 ml Documented by: Baclofen (Baclofen 10 Mg Tablet) 10 mg PO TID PRN PRN Reason: muscle spasm Last Admin: 03/28/21 15:13 Dose: 10 mg Documented by: Clonidine HCl (Clonidine Hcl 0.1 Mg Tablet) 0.1 mg PO TID [facility]; Protocol Last Admin: 03/28/21 15:13 Dose: 0.1 mg Documented by: Hydroxyzine HCl (Hydroxyzine Hcl 25 Mg Tablet) 25 mg PO BEDTIME PRN PRN Reason: Anxiety Last Admin: 03/23/21 20:24 Dose: 25 mg Documented by: Ivermectin (Ivermectin 3 Mg Tablet) 15 mg PO Fr@0900 [facility] Last Admin: 03/26/21 09:17 Dose: 15 mg Documented by: Magnesium Hydroxide (Milk Of Magnesia 30 Ml Oral.Susp) 30 ml PO DAILY PRN PRN Reason: Constipation Methadone HCl (Methadone Hcl 20 Mg/2 Ml Oral.Conc) 75 mg PO DAILY [facility] Last Admin: 03/28/21 08:24 Dose: 75 mg Documented by: Omeprazole (Omeprazole 20 Mg Capsule.Dr) 20 mg PO DAILY@0630 [facility] Last Admin: 03/28/21 08:24 Dose: 20 mg Documented by: Oxcarbazepine (Oxcarbazepine 300 Mg Tablet) 300 mg PO BID [facility] Last Admin: 03/28/21 08:25 Dose: Not Given Documented by: Quetiapine Fumarate (Quetiapine Fumarate 200 Mg Tablet) 200 mg PO BID [facility] Last Admin: 03/28/21 08:25 Dose: 200 mg Documented by: Trazodone HCl (Trazodone Hcl 50 Mg Tablet) 50 mg PO BEDTIME PRN PRN Reason: Insomnia Vitamin D (Cholecalciferol (Vitamin D3) 25 Mcg Tablet) 50 mcg PO DAILY [facility] Last Admin: 03/28/21 08:24 Dose: 50 mcg Documented by: Allergies Allergies Allergy/AdvReac Type Severity Reaction Status Date / Time vancomycin [Vancomycin] Allergy Mild HIVES Verified 05/28/20 10:00 Assessment & Plan Assessment & Plan (1) Substance induced mood disorder: Status: Acute Code(s): F19.94 - Other psychoactive substance use, unspecified with psychoactive substance-induced mood disorder (2) Opioid use disorder, moderate, dependence: Status: Acute Code(s): F11.20 - Opioid dependence, uncomplicated (3) Cocaine use disorder, moderate, dependence: Status: Acute Code(s): F14.20 - Cocaine dependence, uncomplicated Assessment and Plan: Mr. Walls is 55 year-old male with hx of polysubstance use disorder. Pt self-presented to ED, reporting HI towards landlord. In the ED his utox was positive for cocaine, opioids and fentanyl. On the unit, pt presents as calmer, still angry about landlord not returning his deposit. He minimizes and declines referrals for substance use treatment. pt mood improved; no SI/HI; will continue with mood stabilizer; working on perspective that [employer] dishonesty is her problem and he does not need to get embroiled, risk his own safety and future (shared how formerly, he's been vicitmized by others and it became a matter of survival to respond to challenges). PLAN: 1. Admit to M5 2. Trileptal mood stabilizer for impulsive, explosive behaviors. Pt with hx of hep c. 3. Obtain collateral information 4. Aftercare planning 03/27/21:Lower trileptal No other changes to plan 03/28/21: No changes I spent minutes with the patient and/or on the patient floor today, greater than?50% of which was spent counseling/coordinating care. Patient educated on: diagnosis and medication risk/benefits Informed Consent: further education needed Reason for contiued inpatient stay Substantial Risk for: rapid decompensation
[2021-03-28 20:03] VITALS: BP 121/64; PULSE 60
[2021-03-29] MEDS: Omeprazole 20 MG CAPSULE.DR PO (07:06)
[2021-03-29 08:21] VITALS: BP 103/54; PULSE 54; TEMP 36.4; O2SAT 99
[2021-03-29] MEDS: Cholecalciferol (Vitamin D3) 25 MCG TABLET 50 MCG PO (08:48)
[2021-03-29] MEDS: QUEtiapine Fumarate 200 MG TABLET PO (08:49)
[2021-03-29] MEDS: methADONE HCl 20 MG/2 ML ORAL.CONC 75 MG PO (08:49)
[2021-03-29] MEDS: cloNIDine HCL 0.1 MG TABLET PO (08:49)
--- NOTE | 2021-03-29 09:45 | P.PNPSI_ITS ---
Subjective Subjective Date of Service: 03/29/21 Reason For Visit: SI Subjective Notes: Conditional Voluntary Interim History: Pt reports he had good weekend. He reports roommate snoring and that got me angry. He denies SI/HI. He reports he wants to go to sober housing but per clinician has declined referrals for most places except for [facility] but there is wait list. Pt has made provocative, suicidal statement conditional to team finding housing. Pt has declined trileptal for mood, will d/c. Per nursing, pt has been visible in the unit, social with select peers. No behavioral concerns. Medication Compliance: Intermittent Side effects from medications: No Attending Groups: No Review of Systems Acute medical concerns: No Review of Systems Review of Systems Constitutional: No Fever, No Chills ENT/Mouth: No sore throat, No Rhinorrhea Eyes: No Eye Pain, No Swelling, No Redness Cardiovascular: No Chest Pain, No SOB Respiratory: No Cough, No Sputum Gastrointestinal: No Nausea, No Vomiting, No Diarrhea, No abdominal Pain Genitourinary: No Dysuria, No Hematuria Musculoskeletal: No joint pain, No Myalgias, No Joint Swelling Skin: No Skin Lesions, No rash Neuro: No Weakness, No Numbness, No Loss of Consciousness, No Dizziness, No Headache Psych: Positive Anxiety, No Depression, positive homicidal ideation and thoughts of harming others, positive polysubstance abuse Heme/Lymph: No Bruising, No Bleeding,No Lymphadenopathy Endocrine: No Polyuria, No Polydipsia Yes all other systems are reviewed and are negative Constitutional: Reports poor appetite and Reports weight loss Eyes: Reports no additional eye complaints Denies neck pain Cardiovascular: Denies chest pain, Denies chest pain at rest, Denies chest pain with activity, Denies rapid heart rate, Denies irregular heart rhythm, Denies lightheadedness, Denies dyspnea and Denies dyspnea on exertion Respiratory: Denies dyspnea and Denies dyspnea on exertion Gastrointestinal: Denies bloating, Denies constipation, Denies GI cramping, Denies early satiety and Denies hematemesis Musculoskeletal: Denies muscle cramps and Denies neck pain Mental Status Exam Mental Status Exam Narrative: Appearance: thin, casually groomed, fair hygiene in NAD Behavior: cooperative. psychomotor: no agitation or retardation noted Speech:clear, normal rate/rhythm/volume, spontaneous Thought process:linear Thought content:on treatment Mood: better Affect: congruent SI:denies HI:denies plan or intent. VH/AH:denies- no signs of internally preoccupied Delusions:none Insight/judgment:fair ? Memory/cog: alert, oriented x 4. grossly intact to conversational testing. Diagnostics Vital Signs (24Hr): Vital Signs - 24 hr 03/28/21 15:13 03/28/21 16:53 03/28/21 17:49 Temperature 98.3 F 98.3 F Pulse Rate 65 57 57 Respiratory Rate 16 16 Blood Pressure 111/63 106/55 L 106/55 L Pulse Oximetry 100 57 L 03/28/21 20:03 03/29/21 08:21 Temperature 97.5 F Pulse Rate 60 54 Respiratory Rate Blood Pressure 121/64 103/54 L Pulse Oximetry 99 Body Mass Index 21.9 Labs Results: 03/22/21 16:44 03/22/21 16:44 Medications Medications Current Medications Acetaminophen (Acetaminophen 325 Mg Tablet) 650 mg PO Q6H PRN PRN Reason: Headache/Pain Mild Scale (1-3) Al Hydroxide/Mg Hydroxide (Magnesium Hydrox/Alum Hydrox 30 Ml Oral.Susp) 30 ml PO Q6H PRN PRN Reason: Heartburn/Nausea Last Admin: 03/25/21 17:17 Dose: 30 ml Documented by: Baclofen (Baclofen 10 Mg Tablet) 10 mg PO TID PRN PRN Reason: muscle spasm Last Admin: 03/28/21 20:54 Dose: 10 mg Documented by: Clonidine HCl (Clonidine Hcl 0.1 Mg Tablet) 0.1 mg PO TID PENDING SALE TO [facility]; Protocol Last Admin: 03/29/21 08:49 Dose: 0.1 mg Documented by: Hydroxyzine HCl (Hydroxyzine Hcl 25 Mg Tablet) 25 mg PO BEDTIME PRN PRN Reason: Anxiety Last Admin: 03/23/21 20:24 Dose: 25 mg Documented by: Ivermectin (Ivermectin 3 Mg Tablet) 15 mg PO Fr@0900 PENDING SALE TO [facility] Last Admin: 03/26/21 09:17 Dose: 15 mg Documented by: Magnesium Hydroxide (Milk Of Magnesia 30 Ml Oral.Susp) 30 ml PO DAILY PRN PRN Reason: Constipation Methadone HCl (Methadone Hcl 20 Mg/2 Ml Oral.Conc) 75 mg PO DAILY PENDING SALE TO [facility] Last Admin: 03/29/21 08:49 Dose: 75 mg Documented by: Omeprazole (Omeprazole 20 Mg Capsule.) 20 mg PO DAILY@0630 PENDING SALE TO [facility] Last Admin: 03/29/21 07:06 Dose: 20 mg Documented by: Oxcarbazepine (Oxcarbazepine 300 Mg Tablet) 300 mg PO BID PENDING SALE TO [facility] Last Admin: 03/29/21 08:50 Dose: Not Given Documented by: Quetiapine Fumarate (Quetiapine Fumarate 200 Mg Tablet) 200 mg PO BID PENDING SALE TO [facility] Last Admin: 03/29/21 08:49 Dose: 200 mg Documented by: Trazodone HCl (Trazodone Hcl 50 Mg Tablet) 50 mg PO BEDTIME PRN PRN Reason: Insomnia Vitamin D (Cholecalciferol (Vitamin D3) 25 Mcg Tablet) 50 mcg PO DAILY PENDING SALE TO [facility] Last Admin: 03/29/21 08:48 Dose: 50 mcg Documented by: Allergies Allergies Allergy/AdvReac Type Severity Reaction Status Date / Time vancomycin [Vancomycin] Allergy Mild HIVES Verified 05/28/20 10:00 Assessment & Plan Assessment & Plan (1) Substance induced mood disorder: Status: Acute Code(s): F19.94 - Other psychoactive substance use, unspecified with psychoactive substance-induced mood disorder (2) Opioid use disorder, moderate, dependence: Status: Acute Code(s): F11.20 - Opioid dependence, uncomplicated (3) Cocaine use disorder, moderate, dependence: Status: Acute Code(s): F14.20 - Cocaine dependence, uncomplicated Assessment and Plan: Mr. Walls is 55 year-old male with hx of polysubstance use disorder. Pt self- presented to ED, reporting HI towards landlord. In the ED his utox was positive for cocaine, opioids and fentanyl. On the unit, pt presents as calmer, still angry about landlord not returning his deposit. He minimizes and declines referrals for substance use treatment. pt mood improved; no SI/HI; will continue with mood stabilizer; working on perspective that [employer] dishonesty is her problem and he does not need to get embroiled, risk his own safety and future (shared how formerly, he's been vicitmized by others and it became a matter of survival to respond to challenges). PLAN: 1. Admit to [facility] 2. Trileptal- pt has decline, october d/c per pt request. 3. Obtain collateral information 4. Aftercare planning I spent minutes with the patient and/or on the patient floor today, greater than?50% of which was spent counseling/coordinating care. Reason for contiued inpatient stay Substantial Risk for: stable for discharge
[2021-03-29 12:05] LABS: COVID-19 Test Negative (Negative)
--- NOTE | 2021-03-29 14:23 | P.DS_ITS ---
DS: Providers Provider Date of Service: 03/29/21 Date of admission: 03/23/21 16:19 Primary care physician: Dominique He DO DS: Diagnosis Discharge Diagnosis (1) Substance induced mood disorder: Status: Acute (2) Opioid use disorder, moderate, dependence: Status: Acute (3) Cocaine use disorder, moderate, dependence: Status: Acute DS: Medications Discharge Medications Home Medications: Home Medications Medication Instructions Recorded Confirmed methadone 77 mg PO DAILY 05/28/20 03/23/21 ivermectin 3 mg tablet 15 mg PO QWEEK 03/22/21 03/22/21 Previous Rx's Medication Instructions Recorded baclofen 10 mg tablet 10 mg PO TID PRN #15 tab 03/29/21 cholecalciferol (vitamin D3) 25 50 mcg PO DAILY #30 tab 03/29/21 mcg (1,000 unit) tablet clonidine HCl 0.1 mg tablet 0.1 mg PO TID #15 tab 03/29/21 omeprazole 20 mg capsule,delayed 20 mg PO DAILY@0630 #30 cap 03/29/21 release oxcarbazepine 600 mg tablet 600 mg PO BEDTIME #30 tab 03/29/21 quetiapine 200 mg tablet 200 mg PO BID #60 tab 03/29/21 Mental Status Exam Mental Status Exam Narrative: Appearance: thin, casually groomed, fair hygiene in NAD Behavior: cooperative. psychomotor: no agitation or retardation noted Speech:clear, normal rate/rhythm/volume, spontaneous Thought process:linear Thought content:on treatment Mood: better Affect: congruent SI:denies HI:denies plan or intent. VH/AH:denies- no signs of internally preoccupied Delusions:none Insight/judgment:fair ? Memory/cog: alert, oriented x 4. grossly intact to conversational testing. Data Data Completed and Pending Completed studies during hospitalization [Text1]: 03/22/21 03/22/21 03/22/21 16:32 16:44 16:44 WBC 9.4 RBC 4.06 L Hgb 11.3 L Hct 34.1 L MCV 84.0 MCH 27.8 MCHC 33.1 RDW 13.3 Plt Count 236 MPV 10.2 Immature Gran % (Auto) 0.4 Neut % (Auto) 75.0 H Lymph % (Auto) 15.6 L Preble % (Auto) 8.8 Eos % (Auto) 0.0 Baso % (Auto) 0.2 Lymph # (Auto) 1.5 Preble # (Auto) 0.8 Eos # (Auto) 0.0 Baso # (Auto) 0.0 Abs Immat Gran (auto) 0.04 H Absolute Neuts (auto) 7.0 Absolute Nucleated RBC 0.000 Nucleated RBC % (auto) 0.0 Sodium 140 Potassium 3.8 Chloride 106 Carbon Dioxide 27 Anion Gap 11 L BUN 9 Creatinine 1.03 Estim Creat Clear Calc 71.9 Estimated GFR > 60 Random Glucose 152 H D Estimat Average Glucose Hemoglobin A1c % Calcium 8.7 Total Bilirubin 0.4 AST 53 H ALT 34 Alkaline Phosphatase 68 Total Protein 6.7 Albumin 3.8 Triglycerides Cholesterol LDL Cholesterol, Calc HDL Cholesterol Vitamin B12 Folate TSH Urine Color Urine Appearance Urine pH Ur Specific Dixon Urine Protein Urine Glucose (UA) Urine Ketones Urine Blood Urine Nitrite Ur Leukocyte Esterase Urine RBC Urine WBC Ur Squamous Epith Cells Calcium Oxalate Crystal Amorphous Sediment Urine Bacteria Urine Mucus Urine Opiates Screen Urine Fentanyl Screen Ur Barbiturates Screen Ur Phencyclidine Scrn Ur Amphetamines Screen U Benzodiazepines Scrn Urine Cocaine Screen U Marijuana (THC) Screen Ethyl Alcohol COVID-19 (DAVE) Negative COVID-19 Clin Com See Note 03/22/21 03/22/21 03/22/21 16:44 19:39 19:39 WBC RBC Hgb Hct MCV MCH MCHC RDW Plt Count MPV Immature Gran % (Auto) Neut % (Auto) Lymph % (Auto) Preble % (Auto) Eos % (Auto) Baso % (Auto) Lymph # (Auto) Preble # (Auto) Eos # (Auto) Baso # (Auto) Abs Immat Gran (auto) Absolute Neuts (auto) Absolute Nucleated RBC Nucleated RBC % (auto) Sodium Potassium Chloride Carbon Dioxide Anion Gap BUN Creatinine Estim Creat Clear Calc Estimated GFR Random Glucose Estimat Average Glucose Hemoglobin A1c % Calcium Total Bilirubin AST ALT Alkaline Phosphatase Total Protein Albumin Triglycerides Cholesterol LDL Cholesterol, Calc HDL Cholesterol Vitamin B12 Folate TSH Urine Color YELLOW Urine Appearance TURBID Urine pH 6.0 Ur Specific Dixon >= 1.030 H Urine Protein TRACE Urine Glucose (UA) NEG Urine Ketones 5 Urine Blood NEG Urine Nitrite NEG Ur Leukocyte Esterase NEG Urine RBC 0 Urine WBC 0 Ur Squamous Epith Cells NONE Calcium Oxalate Crystal 3+ Amorphous Sediment 4+ Urine Bacteria NONE Urine Mucus TRACE Urine Opiates Screen POSITIVE H Urine Fentanyl Screen POSITIVE H Ur Barbiturates Screen POSITIVE H Ur Phencyclidine Scrn Not Detected Ur Amphetamines Screen Not Detected U Benzodiazepines Scrn POSITIVE H Urine Cocaine Screen POSITIVE H U Marijuana (THC) Screen Not Detected Ethyl Alcohol < 10 COVID-19 (DAVE) COVID-19 Clin Com 03/24/21 03/24/21 03/24/21 08:01 08:01 08:01 WBC RBC Hgb Hct MCV MCH MCHC RDW Plt Count MPV Immature Gran % (Auto) Neut % (Auto) Lymph % (Auto) Preble % (Auto) Eos % (Auto) Baso % (Auto) Lymph # (Auto) Preble # (Auto) Eos # (Auto) Baso # (Auto) Abs Immat Gran (auto) Absolute Neuts (auto) Absolute Nucleated RBC Nucleated RBC % (auto) Sodium Potassium Chloride Carbon Dioxide Anion Gap BUN Creatinine Estim Creat Clear Calc Estimated GFR Random Glucose Estimat Average Glucose 111 Hemoglobin A1c % 5.5 Calcium Total Bilirubin AST ALT Alkaline Phosphatase Total Protein Albumin Triglycerides 103 Cholesterol 155 LDL Cholesterol, Calc 80 HDL Cholesterol 55 Vitamin B12 485 Folate 11.8 TSH 1.28 Urine Color Urine Appearance Urine pH Ur Specific Dixon Urine Protein Urine Glucose (UA) Urine Ketones Urine Blood Urine Nitrite Ur Leukocyte Esterase Urine RBC Urine WBC Ur Squamous Epith Cells Calcium Oxalate Crystal Amorphous Sediment Urine Bacteria Urine Mucus Urine Opiates Screen Urine Fentanyl Screen Ur Barbiturates Screen Ur Phencyclidine Scrn Ur Amphetamines Screen U Benzodiazepines Scrn Urine Cocaine Screen U Marijuana (THC) Screen Ethyl Alcohol COVID-19 (DAVE) COVID-19 Clin Com 03/29/21 11:27 WBC RBC Hgb Hct MCV MCH MCHC RDW Plt Count MPV Immature Gran % (Auto) Neut % (Auto) Lymph % (Auto) Preble % (Auto) Eos % (Auto) Baso % (Auto) Lymph # (Auto) Preble # (Auto) Eos # (Auto) Baso # (Auto) Abs Immat Gran (auto) Absolute Neuts (auto) Absolute Nucleated RBC Nucleated RBC % (auto) Sodium Potassium Chloride Carbon Dioxide Anion Gap BUN Creatinine Estim Creat Clear Calc Estimated GFR Random Glucose Estimat Average Glucose Hemoglobin A1c % Calcium Total Bilirubin AST ALT Alkaline Phosphatase Total Protein Albumin Triglycerides Cholesterol LDL Cholesterol, Calc HDL Cholesterol Vitamin B12 Folate TSH Urine Color Urine Appearance Urine pH Ur Specific Dixon Urine Protein Urine Glucose (UA) Urine Ketones Urine Blood Urine Nitrite Ur Leukocyte Esterase Urine RBC Urine WBC Ur Squamous Epith Cells Calcium Oxalate Crystal Amorphous Sediment Urine Bacteria Urine Mucus Urine Opiates Screen Urine Fentanyl Screen Ur Barbiturates Screen Ur Phencyclidine Scrn Ur Amphetamines Screen U Benzodiazepines Scrn Urine Cocaine Screen U Marijuana (THC) Screen Ethyl Alcohol COVID-19 (DAVE) Negative COVID-19 Clin Com See Note DS: Summary Hospital Course Hospital Course: HPI: Subjective Notes: Conditional Voluntary Narrative: Mr. Walls is a 55 year-old male with hx of polysubstance use disorder who self presented to ED reporting HI towards landlord in setting of cocaine use. In the ED, pt was positive for cocaine, opioid and fentanyl. On the unit,? Mr. Walls continues to present as agitated, restless although denies any plan or intent to hurt his landlord. He reports he had problems with landlord in that he was asking landlord to return the deposit which apparently landlord declined for unclear reasons. Pt denies suicidal ideation. Pt also denies AH/VH. He reports fair sleep. In terms of substance use, pt minimizes use and states he does not have a substance use disorder and that this is just few times I use recently. Past Psychiatric History: Inpt: 2-3 in past OP: [facility] Past trials: [facility] Suicide attempt: denies Medical Evaluation Reviewed: Yes HOSPITAL COURSE Mr. Walls was admitted on a CV and placed on 15 minutes checks for safety. On the unit, pt reported feeling upset and angry with current landlord as he had not returned his deposit. Pt denied HI and SI on the unit. After discussing risks, benefits and alternative treatment options, pt agreed to start trileptal for explosive, impulsive behaviors which I do suspect are mostly triggered by use of cocaine. He was also continued on seroquel 200mg po BID for mood. The dose of trileptal was decrease due to sedation and scheduled all at bedtime. He agreed to continue methadone for opioid use disorder. His affect gradually appeared much calmer, he was not as restless. He denied symptoms of depression or anxiety. He continued to denied suicidal or homicidal ideation. He did make few statements related to conditional suicidality if treatment team did not find him housing. He did agree to continues substance use treatment and he was admitted to [facility]. On the unit, he attended some assigned groups. He was social with select peers. There were no incidences of disruptive behaviors nor use of restraints. He was given narcan at time of discharge while in the unit. Status at Discharge Cognitive/behavioral status at discharge: Pt appears much calmer, no explosive or impulsive behaviors noted. No SI/HI. He is future oriented and hopeful that he will continue working on substance use. No signs of aggression towards self or others. Functional status at discharge: independent ambulation Overall status at discharge: patient is progressing back to baseline Time Spent with Patient Time attestation: Total time spent providing and/or coordinating discharge services: Time spent: Less than 30 minutes Discharge Plan Discharge Patient Disposition: Home, Self-Care Discharge Diagnosis: Substance induced mood disorder opioid use disorder cocaine use disorder Referrals: [facility] [Other] - 03/29/21 5:30 pm (Please present to the [facility] at 5:30pm today) [facility] [Other] - 03/30/21 6:30 am (Please present to the clinic tomorrow morning, Monday03/30/21 between 6:30AM-11:00AM) [facility] [Other] - 1 Week (Please contact [facility] at the above number to check on your referral and the waitlist) Dominique He DO [Primary Care Provider] - 04/05/21 2:00 pm ([email or web address] PROCTOR. APPOINTMENT IN OFFICE) Discharge Medications: New clonidine HCl 0.1 mg Tablet 0.1 mg PO TID Qty: 15 RF: 0 quetiapine 200 mg Tablet 200 mg PO BID Qty: 60 RF: 0 baclofen 10 mg Tablet 10 mg PO TID PRN (Reason: muscle spasm) Qty: 15 RF: 0 oxcarbazepine 600 mg tablet 600 mg PO BEDTIME Qty: 30 RF: 0 omeprazole 20 mg Capsule,Delayed Release(Dr/Ec) 20 mg PO DAILY@0630 Qty: 30 RF: 0 cholecalciferol (vitamin D3) 25 mcg (1,000 unit) Tablet 50 mcg PO DAILY Qty: 30 RF: 0 Continued methadone 77 mg PO DAILY RF: 0 ivermectin 3 mg tablet 15 mg PO QWEEK RF: 0 Discontinued baclofen 10 mg tablet 1 tab PO TID PRN (Reason: muscle spasm) RF: 0 clonidine HCl 0.1 mg tablet 1 tab PO TID RF: 0 quetiapine 200 mg tablet 1 tab PO BID RF: 0 cholecalciferol (vitamin D3) [Vitamin D3] 50 mcg (2,000 unit) tablet 1 tab PO DAILY RF: 0 zolpidem 10 mg tablet 1 tab PO BEDTIME PRN (Reason: Insomnia) RF: 0 Discharge Orders: Discharge Order (Routine); Ordered 03/29/21 Ordered By: Anjelica Negro Diet: regular diet Activity on Discharge: As tolerated Stand Alone Forms: Patient Portal Discharge page Care Plan Goals: 1. Maintain mood 2. No aggression towards self or others 3. harm reduction- take home narcan Health Concerns: 1. Follow up with PCP Plan of Treatment: 1. Take medications as prescribed 2. Go to nearest ED or call 911 in event of emergency Assessment: Pt much less irritable, no signs of aggression towards self or others. No SI/HI.
[2021-03-29] MEDS: Naloxone HCl Nasal TAKE HOME 4 MG SPRAY NOSTRILALT (15:05)
== END 2021-03-29 14:00 | disposition home or self-care (01) | DRG 897 ==
LOC: HO.ED 03-23 16:39 → HO.PM5 03-23 16:45
PROVIDERS: Nurse Practitioner Family; Physician Assistant; Social Worker; Admitting Provider Psychiatry & Neurology Psychiatry; Emergency Provider Emergency Medicine Emergency Medical Services; PCP Family Medicine; Visit Provider Psychiatry & Neurology Psychiatry
DX: F19.94 Other psychoactive substance use, unspecified with psychoactive substance-induced mood disorder (principal); R45.851 Suicidal ideations; F11.20 Opioid dependence, uncomplicated; F14.20 Cocaine dependence, uncomplicated; Z20.822 Contact with and (suspected) exposure to COVID-19; Z79.899 Other long term (current) drug therapy
CPT/HCPCS: 36415; 80053; 80061; 80307; 81001; 82077; 82607; 82746; 83036; 84443; 85025; 87635; 93005; 99285

== ENCOUNTER 2021-08-27 09:58 | Inpatient (IN) | payer OTHER, SELFPAY ==
--- NOTE | ~2021-08-27 | US_ITS ---
EXAMINATION: US ABDOMEN LIMITED US DUPLEX ARTERIAL VENOUS ABDOMEN CLINICAL INFORMATION: Acute hepatitis. Elevated liver function tests. Evaluate for portal vein thrombosis. COMPARISON: CT abdomen and pelvis from 08/27/2021. TECHNIQUE: Real-time imaging of the right upper quadrant abdominal viscera. Also, duplex Doppler imaging of the splenic, portal and hepatic vessels is performed. FINDINGS: PANCREAS: Pancreatic tail is obscured by bowel gas. The visualized portions of the pancreatic head and body are unremarkable. No pancreatic ductal dilatation. LIVER: Liver has normal size, contour and parenchymal echotexture. No focal liver lesion. No intrahepatic bile duct dilatation. GALLBLADDER: The gallbladder is suboptimally visualized. The technologist reports that the gallbladder imaging was limited due to patient's inability to suspend respiration, and patient's limited mobility. The visualized portion of the gallbladder is normal. No gallbladder wall thickening. No gallstones are seen. No pericholecystic fluid. COMMON BILE DUCT: Normal in caliber measuring 0.3 cm in diameter. RIGHT KIDNEY: Normal. No hydronephrosis. No renal calculi or focal parenchymal lesions. The kidney measures 10.6 cm in maximum dimension. FREE FLUID: None. DUPLEX DOPPLER IMAGING: Normal flow is detected within the visualized splenic vein, portal splenic confluence and main portal vein. Doppler images also show presence of normal flow direction in the visualized right, middle and left hepatic veins. Proper hepatic artery has a normal waveform, peak systolic velocity of 192 cm/sec. The visualized right and left hepatic arteries have normal waveforms. US/US duplex arterial venous comp IMPRESSION: * No acute sonographic abnormalities in the examined abdomen. * No evidence of portal vein thrombosis.
--- NOTE | ~2021-08-27 | US_ITS ---
EXAMINATION: US ABDOMEN LIMITED US DUPLEX ARTERIAL VENOUS ABDOMEN CLINICAL INFORMATION: Acute hepatitis. Elevated liver function tests. Evaluate for portal vein thrombosis. COMPARISON: CT abdomen and pelvis from 08/27/2021. TECHNIQUE: Real-time imaging of the right upper quadrant abdominal viscera. Also, duplex Doppler imaging of the splenic, portal and hepatic vessels is performed. FINDINGS: PANCREAS: Pancreatic tail is obscured by bowel gas. The visualized portions of the pancreatic head and body are unremarkable. No pancreatic ductal dilatation. LIVER: Liver has normal size, contour and parenchymal echotexture. No focal liver lesion. No intrahepatic bile duct dilatation. GALLBLADDER: The gallbladder is suboptimally visualized. The technologist reports that the gallbladder imaging was limited due to patient's inability to suspend respiration, and patient's limited mobility. The visualized portion of the gallbladder is normal. No gallbladder wall thickening. No gallstones are seen. No pericholecystic fluid. COMMON BILE DUCT: Normal in caliber measuring 0.3 cm in diameter. RIGHT KIDNEY: Normal. No hydronephrosis. No renal calculi or focal parenchymal lesions. The kidney measures 10.6 cm in maximum dimension. FREE FLUID: None. DUPLEX DOPPLER IMAGING: Normal flow is detected within the visualized splenic vein, portal splenic confluence and main portal vein. Doppler images also show presence of normal flow direction in the visualized right, middle and left hepatic veins. Proper hepatic artery has a normal waveform, peak systolic velocity of 192 cm/sec. The visualized right and left hepatic arteries have normal waveforms. US/US abdomen limited IMPRESSION: * No acute sonographic abnormalities in the examined abdomen. * No evidence of portal vein thrombosis.
--- NOTE | ~2021-08-27 | CT_ITS ---
EXAMINATION: CT ABDOMEN AND PELVIS WITH CONTRAST CLINICAL INFORMATION: Elevated LFTs. COMPARISON: None TECHNIQUE: Multidetector volumetric images were obtained from the superior aspect of the liver through the pubic symphysis following administration 85 mL of Omnipaque 350 intravenous contrast. Sagittal and coronal reformatted images were obtained on the technologist's workstation. Oral contrast: No This CT examination was performed using dose optimization techniques as appropriate, variously including the following: *Automated exposure control *Adjustment of mA and/or kV according to patient size (this includes techniques or standardized protocols for targeted exams where dose is matched to indication/reason for exam; i.e. extremities or head) *Use of iterative reconstruction technique DLP: 455 mGy-cm FINDINGS: LUNG BASES: The visualized lung bases are unremarkable. LIVER, GALLBLADDER, AND BILIARY TREE: The liver is normal in size, shape, and attenuation. No biliary ductal dilatation is present. There are a few small sharply demarcated foci of hypoattenuation in the hepatic parenchyma measuring up to 5 mm in diameter which are too small to characterize but statistically favored to correspond to cysts. No recommended imaging follow up. The gallbladder is unremarkable with no evidence of radiopaque gallstones, gallbladder wall thickening, or obvious pericholecystic inflammatory changes. PANCREAS: Unremarkable. SPLEEN: Unremarkable. ADRENAL GLANDS: Unremarkable. KIDNEYS AND URETERS: A lower pole calyx in the right kidney, there is a 3 mm calculus located centimeters deep to the skin surface of the right posterior mid axillary line. No additional renal calculi are identified. Small subcentimeter focus of hypoattenuation in the lateral cortex of the right kidney is too small to characterize, though statistically favored to correspond to a simple cyst. No recommend imaging follow-up. Kidneys normal in size with symmetric enhancement and cortical thickness. No perinephric stranding. No hydronephrosis or hydroureter. BLADDER: Unremarkable. GASTROINTESTINAL TRACT: The small and large bowel are unremarkable. The appendix is not seen, though there are no findings of acute appendicitis. No tears. No free fluid or free air. ABDOMINAL WALL: Small fat-containing umbilical hernia. No bowel involvement. LYMPH NODES: Normal. VASCULAR: Unremarkable. PELVIC VISCERA: The prostate and seminal vesicles are unremarkable. OSSEOUS STRUCTURES: Severe degenerative disc disease at L5-S1 with severe facet arthropathy. More mild multilevel degenerative disc disease at other levels. CT/CT abdomen pelvis w con IMPRESSION: 1. No acute abnormalities in the abdomen and pelvis. 2. A nonobstructing 2 mm calculus in the right lower renal pole. Fleischner guidelines were followed.
--- NOTE | ~2021-08-27 | XR_ITS ---
EXAMINATION: XR PORTABLE CHEST CLINICAL INFORMATION: Fever COMPARISON: 03/30/2017 TECHNIQUE: AP portable upright view of the chest FINDINGS: Lungs are clear. No consolidation, pneumothorax, or pleural effusion. Cardiac and mediastinal contours are normal. Pulmonary vasculature is unremarkable. Osseous structures are unremarkable. XR/XR chest 1V IMPRESSION: No acute cardiopulmonary findings
[2021-08-27 10:02] VITALS: BP 102/78; PULSE 89; RESP 18; TEMP 36.1; O2SAT 96; BMI 21.9
--- NOTE | 2021-08-27 10:20 | ED.PSYCH ---
HPI - Psych General Chief Complaint: Psychiatric Symptoms <FLORENCIO Rodriguez - Last Filed: 08/27/21 17:23> Stated Complaint: Crisis <FLORENCIO Rodriguez Last Filed: 08/27/21 17:23> Time Seen by Provider: 08/27/21 10:19 <FLORENCIO Rodriguez - Last Filed: 08/27/21 17:23> Source: patient <FLORENCIO Rodriguez Last Filed: 08/27/21 17:23> Mode of arrival: ambulatory <FLORENCIO Rodriguez - Last Filed: 08/27/21 17:23> Limitations: no limitations <FLORENCIO Rodriguez Last Filed: 08/27/21 17:23> History of Present Illness HPI Narrative: Patient is a 56 year old male presenting to the emergency department today feeling on edge . Patient states that he hasn't been taking his meds and would like to be started back on them. Patient states that when he goes this long without medication, he becomes very on edge and has been known to lash out. Patient denies any homicidal or suicidal ideation at this time. Patient denies any dizziness, lightheadedness, abdominal pain, nausea, vomiting, fever, chills, blurry vision, double vision, loss of vision, chest pain, difficulty breathing, shortness of breath, back pain, night sweats, pain with urination, increased urinary frequency, increased urinary urgency, blood in his urine or stool, syncope or a near syncopal episode, recent trauma or falls, bowel incontinence, bladder incontinence, bowel retention, bladder retention, or any other complaints at this time. Patient states that he has been using Fentanyl over the last 2 weeks. <FLORENCIO Rodriguez - Last Filed: 08/27/21 17:23> MD complaint: substance abuse <FLORENCIO Rodriguez - Last Filed: 08/27/21 17:23> Onset (ago): week(s) <FLORENCIO Rodriguez Last Filed: 08/27/21 17:23> Duration: constant <FLORENCIO Rodriguez Last Filed: 08/27/21 17:23> History of same: Yes <FLORENCIO Rodriguez Last Filed: 08/27/21 17:23> Relieving factors: medication <FLORENCIO Rodriguez Last Filed: 08/27/21 17:23> Exacerbating factors: none <FLORENCIO Rodriguez - Last Filed: 08/27/21 17:23> Context: recent drug abuse and not taking psychiatric medications <FLORENCIO Rodriguez - Last Filed: 08/27/21 17:23> Associated psychiatric symptoms: racing thoughts <FLORENCIO Rodriguez - Last Filed: 08/27/21 17:23> Associated symptoms: denies other symptoms <FLORENCIO Rodriguez - Last Filed: 08/27/21 17:23> Treatments prior to arrival: none <FLORENCIO Rodriguez - Last Filed: 08/27/21 17:23> Related Data Home Medications: Home Medications Medication Instructions Recorded Confirmed methadone 77 mg PO DAILY 05/28/20 03/23/21 Previous Rx's Medication Instructions Recorded baclofen 10 mg tablet 10 mg PO TID PRN #15 tab 03/29/21 quetiapine 200 mg tablet 200 mg PO BID #60 tab 03/29/21 <FLORENCIO Rodriguez - Last Filed: 08/27/21 17:23> Allergies/Adverse Reactions: Allergies Allergy/AdvReac Type Severity Reaction Status Date / Time vancomycin [Vancomycin] Allergy Mild HIVES Verified 08/27/21 10:01 <FLORENCIO Rodriguez - Last Filed: 08/27/21 17:23> Review of Systems Constitutional: Constitutional: Reports no additional constitutional complaints, Denies chills, Denies fever(s) and Denies night sweats <FLORENCIO Rodriguez - Last Filed: 08/27/21 17:23> Eyes: Eyes: Reports no additional eye complaints, Denies blurry vision, Denies change in vision, Denies diplopia, Denies eye discharge, Denies loss of vision and Denies eye pain <FLORENCIO Rodriguez - Last Filed: 08/27/21 17:23> ENT: Denies dizziness <FLORENCIO Rodriguez - Last Filed: 08/27/21 17:23> Cardiovascular: Cardiovascular: Reports no additional cardiovascular complaints, Denies chest pain, Denies lightheadedness, Denies Loss of Consciousness and Denies dyspnea <FLORENCIO Rodriguez - Last Filed: 08/27/21 17:23> Respiratory: Respiratory: Reports no additional respiratory complaints and Denies dyspnea <FLORENCIO Rodriguez - Last Filed: 08/27/21 17:23> Gastrointestinal: Gastrointestinal: Reports no additional gastrointestinal complaints, Denies abdominal pain, Denies melena, Denies hematochezia, Denies change in bowel habits and Denies change in stool character <FLORENCIO Rodriguez - Last Filed: 08/27/21 17:23> Genitourinary: Genitourinary: Reports no additional male genitourinary complaints, Denies hematuria, Denies oliguria, Denies difficulty urinating, Denies dysuria, Denies urinary frequency, Denies urinary hesitancy, Denies urinary incontinence and Denies urinary urgency <FLORENCIO Rodriguez - Last Filed: 08/27/21 17:23> Musculoskeletal: Musculoskeletal: Reports no additional musculoskeletal complaints, Denies numbness and Denies tingling <FLORENCIO Rodriguez - Last Filed: 08/27/21 17:23> Neurologic: Denies dizziness, Denies loss of vision, Denies numbness and Denies tingling <FLORENCIO Rodriguez - Last Filed: 08/27/21 17:23> Psychiatric: Psychiatric: Reports no additional psychiatric complaints and Reports irritability <FLORENCIO Rodriguez - Last Filed: 08/27/21 17:23> Endocrine: Endocrine: Reports no additional endocrine complaints <FLORENCIO Rodriguez - Last Filed: 08/27/21 17:23> Hematologic/Lymphatic: Hematologic/Lymphatic: Reports no additional hematologic/lymphatic complaints <FLORENCIO Rodriguez - Last Filed: 08/27/21 17:23> Allergic/Immunologic: Allergic/Immunologic: Reports no additional allergic/immunologic complaints <FLORENCIO Rodriguez - Last Filed: 08/27/21 17:23> PMFSH Past Medical History Attestation statement: The following information was validated with the patient. <FLORENCIO Rodriguez - Last Filed: 08/27/21 17:23> Source: old records reviewed <FLORENCIO Rodriguez - Last Filed: 08/27/21 17:23> Medical History: Medical History Arthritis Chronic venous insufficiency History of hepatitis C Opiate dependence Panic disorder Polysubstance abuse Tobacco dependence Varicose veins of both lower extremities <FLORENCIO Rodriguez - Last Filed: 08/27/21 17:23> Surgical History: Surgical History H/O removal of cyst <FLORENCIO Rodriguez - Last Filed: 08/27/21 17:23> Family History Family History: Family History Maternal Aunt Cardiac disorder Maternal Grandmother Cardiac disorder Mother Diabetes Hypertension <FLORENCIO Rodriguez - Last Filed: 08/27/21 17:23> Social History Social History: Social History Household Members: None Housing: Apartment Do you presently have visiting nurse or other home services: No Alcohol intake: former Patient Tobacco Use Status: Never used Tobacco Tobacco use type: Cigarette e-Cigarette/Vaping Use: Never Used Second Hand Smoke Exposure: Yes Substance Use Type: Crack/Cocaine and Opiates Advance Directives: No Advance Directives Information Provided: No service: No Sexual orientation: Did not discuss <FLORENCIO Rodriguez - Last Filed: 08/27/21 17:23> Physical Exam Vital Signs: Vital Signs: Last Vital Signs Temp 98.2 F 08/27/21 10:53 Pulse 64 08/27/21 10:53 Resp 18 08/27/21 10:02 BP 121/75 08/27/21 10:53 Pulse Ox 94 08/27/21 10:53 BMI result Body Mass Index 21.9 <FLORENCIO Rodriguez - Last Filed: 08/27/21 17:23> Vital Signs: Last Vital Signs Temp 98.2 F 08/27/21 10:53 Pulse 64 08/27/21 10:53 Resp 18 08/27/21 10:02 BP 121/75 08/27/21 10:53 Pulse Ox 94 08/27/21 10:53 BMI result Body Mass Index 21.9 <Fatmata Rivas NP - Last Filed: 08/27/21 21:01> Const: General: cooperative, no acute distress, alert and awake <FLORENCIO Rodriguez - Last Filed: 08/27/21 17:23> Nutritional Appearance: well nourished <Hilary Shenalfredo PA - Last Filed: 08/27/21 17:23> Orientation/consciousness: patient oriented x3 <Hilary Shenalfredo PA - Last Filed: 08/27/21 17:23> Limitations: no limitations <Hilary Shenalfredo PA - Last Filed: 08/27/21 17:23> HEENT: Head: Yes normal to inspection and Yes atraumatic <Hilary Shenalfredo PA - Last Filed: 08/27/21 17:23> Ears: hearing grossly normal bilaterally and external ears normal <Hilary Shenalfredo PA - Last Filed: 08/27/21 17:23> General nose exam: Normal external nose present, no nasal discharge noted and no epistaxis <Hilarytitus Shenalfredo PA - Last Filed: 08/27/21 17:23> Face and sinus: Yes normal facial exam, No abrasion and No laceration <Hilary Tessa PA - Last Filed: 08/27/21 17:23> Mouth: Normal oral and palatal mucosa present, no drooling and no muffled voice <Hilary Shenalfredo PA - Last Filed: 08/27/21 17:23> Eyes: General: appearance normal, both eyes and all related structures <Hilary Tessa PA - Last Filed: 08/27/21 17:23> Periorbital: periorbital findings normal <Hilary Shenalfredo PA - Last Filed: 08/27/21 17:23> Eyelids: Yes eyelids normal <Hilary Tessa PA - Last Filed: 08/27/21 17:23> Conjunctivae: conjunctivae normal <Hilary Shnealfredo PA - Last Filed: 08/27/21 17:23> Pupils: Equal, round and reactive pupils present <Hilary Tessa PA - Last Filed: 08/27/21 17:23> EOM: EOMs intact bilaterally <Hilary Zarate PA - Last Filed: 08/27/21 17:23> Neck: Neck: Yes normal visual inspection, Yes full ROM and Yes no lymphadenopathy <Hilary Zarate PA - Last Filed: 08/27/21 17:23> Chest: Chest palpation & inspection: normal inspection of the chest <Hilary Zarate PA - Last Filed: 08/27/21 17:23> Resp: Effort & Inspection: normal respiratory effort and able to speak in complete sentences <Hilary Zarate PA - Last Filed: 08/27/21 17:23> Auscultation: clear to auscultation bilaterally <Hilary Zarate PA - Last Filed: 08/27/21 17:23> Cardio: Rate: regular rate <Hilary Zarate PA - Last Filed: 08/27/21 17:23> Rhythm: regular rhythm <Hilary Zarate PA - Last Filed: 08/27/21 17:23> GI: Inspection: Yes normal to inspection <Hilary Zarate PA - Last Filed: 08/27/21 17:23> Neuro: General: patient oriented x3 and moves all extremities <Hilary Zarate PA - Last Filed: 08/27/21 17:23> Cranial nerves: Yes Equal, round and reactive pupils present <Hilary Zarate PA - Last Filed: 08/27/21 17:23> Cognition (Neuro): normal cognition <Hilary Zarate PA - Last Filed: 08/27/21 17:23> Motor exam (neuro): 5/5 motor strength present throughout <Hilary Zarate PA - Last Filed: 08/27/21 17:23> Sensory Exam: Normal double simultaneous stimulation for sensation <Hilary Zarate PA - Last Filed: 08/27/21 17:23> Coordination: [id number] test normal <Hilary Zarate PA - Last Filed: 08/27/21 17:23> Extrem: General: Yes normal to inspection, Yes full ROM and Yes capillary refill normal <Hilary Zarate PA - Last Filed: 08/27/21 17:23> Psych: Appearance: grossly normal <Hilary Shenalfredo PA - Last Filed: 08/27/21 17:23> Mental Status: mental status grossly normal <Hilary ZarateFLORENCIO - Last Filed: 08/27/21 17:23> Affect: normal affect <Hilary Zarate PA - Last Filed: 08/27/21 17:23> Attitude: cooperative <Hilary Shenalfredo PA - Last Filed: 08/27/21 17:23> Thought process: Normal thought process present <FLORENCIO Rodriguez - Last Filed: 08/27/21 17:23> Thought content: Normal thought content present <FLORENCIO Rodriguez - Last Filed: 08/27/21 17:23> Insight: Good insight present (Psych) <FLORENCIO Rodriguez - Last Filed: 08/27/21 17:23> Course Reevaluation(s) Reevaluation #1: Patient now expressing that he would like to . <FLORENCIO Rodriguez - Last Filed: 08/27/21 17:23> Time: 10: <FLORENCIO Rodriguez - Last Filed: 08/27/21 17:23> Reevaluation #2: 2100-I received a sign out that this patient was waiting for a crisis evaluation. His initial LFTS were elevated with a known history of hepatitis C. He has no reports of abdominal pain and vomiting and the plan was for repeat liver panel. I reviewed the patient's labs which show AST 987/ALT 924 which normal total bili. Last labs from 03/22/21 show AST 53, ALT 34. Discussed the case with Dr cShmid. Plan to obtain lipase, Tylenol level, salicylate level, ethanol, hepatitis panel, CT A/P with IV contrast. Anticipate admission for acute hepatitis. Dr Schmid to assume care of this patient. <Fatmata Rivas NP - Last Filed: 08/27/21 21:01> MDM - Psych MDM Narrative Medical decision making narrative: Patient is a 56 year old male presenting to the emergency department today with suicidal ideation and feeling on edge . Patient's physical exam was unremarkable. Patient's blood work showed elevated LFTs and a very mild hyponatremia. I believe the patient's elevated LFTs are secondary to his hepatitis status and not an acute process. The patient has no acute abdominal complaints and his abdominal physical exam is unremarkable. Patient's LFTs to be repeated at 1630. Patient's urine showed no acute process. Patient's urine drug screen was positive for opiates, fentanyl, and THC. I explained my physical exam findings as well as all test results to the patient. I answered all questions asked by the patient. Patient received PO Ativan which he stated helped his symptoms significantly. I stressed the importance of the patient taking his medication as prescribed. Patient is currently awaiting a behavioral health evaluation. <FLORENCIO Rodriguez - Last Filed: 08/27/21 17:23> Differential Diagnosis Differential diagnosis: Likely suicidal ideation, acute anxiety, substance abuse and mood disorder <FLORENCIO Rodriguez - Last Filed: 08/27/21 17:23> Medical Records Attestation: I reviewed the patient's medical records. <FLORENCIO Rodriguez - Last Filed: 08/27/21 17:23> Lab Data Attestation: I reviewed the patient's lab results. <FLORENCIO Rodriguez - Last Filed: 08/27/21 17:23> Result diagrams: : 08/27/21 11:53 08/27/21 17:33 <FLORENCIO Rodriguez - Last Filed: 08/27/21 17:23> Labs: Lab Results 08/27/21 08/27/21 08/27/21 Range/Units 11:53 11:53 11:53 WBC 5.7 (4.8-10.8) X10*3/uL RBC 4.89 (4.60-5.80) X10*6/uL Hgb 13.3 L (14.0-18.0) g/dl Hct 41.5 L (42.0-52.0) % MCV 84.9 (80.0-98.0) fL MCH 27.2 (27.0-33.0) pg MCHC 32.0 (31.0-36.0) g/dl RDW 13.5 (11.0-16.0) % Plt Count 186 (160-400) X10*3/uL MPV 10.4 (9.4-12.4) fL Immature Gran % (Auto) 0.4 (0.0-0.4) % Neut % (Auto) 85.9 H (45-73) % Lymph % (Auto) 6.9 L (20-40) % Hudson % (Auto) 6.2 (2-11) % Eos % (Auto) 0.2 (0-4) % Baso % (Auto) 0.4 (0-2) % Lymph # (Auto) 0.4 L (1.2-4.9) X10*3/uL Hudson # (Auto) 0.4 (0.1-1.2) X10*3/uL Eos # (Auto) 0.0 (0.0-0.4) X10*3/uL Baso # (Auto) 0.0 (0.0-0.2) X10*3/uL Abs Immat Gran (auto) 0.02 (0.00-0.03) X10*3/uL Absolute Neuts (auto) 4.9 (2.0-8.3) x10*3/uL Absolute Nucleated RBC 0.000 (0.0-0.012) X10*3/uL Nucleated RBC % (auto) 0.0 (0.0-0.2) /100WBC Sodium 134 L (135-145) mmol/L Potassium 5.0 D (3.3-5.1) mmol/L Chloride 102 (96-108) mmol/L Carbon Dioxide 24 (22-29) mmol/L Anion Gap 13 (12-20) BUN 12 (9-16) mg/dL Creatinine 1.08 (0.5-1.4) mg/dL Estim Creat Clear Calc 67.7 Estimated GFR > 60 Random Glucose (60-115) mg/dL Fasting Glucose 125 H (60-99) mg/dL Calcium 8.6 (8.4-10.2) mg/dL Total Bilirubin 1.2 H (0.0-1.0) mg/dL AST 862 H (5-37) U/L ALT 771 H (0-40) U/L Alkaline Phosphatase 98 D (39-117) U/L Total Protein 7.1 (6.5-8.0) g/dL Albumin 3.7 (3.5-5.0) g/dL Lipase (8-78) U/L Urine Opiates Screen POSITIVE H (Not Detect) Urine Fentanyl Screen POSITIVE H (Not Detect) Ur Barbiturates Screen Not Detected (Not Detect) Ur Phencyclidine Scrn Not Detected (Not Detect) Ur Amphetamines Screen Not Detected (Not Detect) U Benzodiazepines Scrn Not Detected (Not Detect) Urine Cocaine Screen POSITIVE H (Not Detect) U Marijuana (THC) Screen Not Detected (Not Detect) COVID-19 (DAVE) (Negative) COVID-19 Clin Com 08/27/21 08/27/21 Range/Units 12:43 17:33 WBC (4.8-10.8) X10*3/uL RBC (4.60-5.80) X10*6/uL Hgb (14.0-18.0) g/dl Hct (42.0-52.0) % MCV (80.0-98.0) fL MCH (27.0-33.0) pg MCHC (31.0-36.0) g/dl RDW (11.0-16.0) % Plt Count (160-400) X10*3/uL MPV (9.4-12.4) fL Immature Gran % (Auto) (0.0-0.4) % Neut % (Auto) (45-73) % Lymph % (Auto) (20-40) % Hudson % (Auto) (2-11) % Eos % (Auto) (0-4) % Baso % (Auto) (0-2) % Lymph # (Auto) (1.2-4.9) X10*3/uL Hudson # (Auto) (0.1-1.2) X10*3/uL Eos # (Auto) (0.0-0.4) X10*3/uL Baso # (Auto) (0.0-0.2) X10*3/uL Abs Immat Gran (auto) (0.00-0.03) X10*3/uL Absolute Neuts (auto) (2.0-8.3) x10*3/uL Absolute Nucleated RBC (0.0-0.012) X10*3/uL Nucleated RBC % (auto) (0.0-0.2) /100WBC Sodium 138 (135-145) mmol/L Potassium 4.4 (3.3-5.1) mmol/L Chloride 100 (96-108) mmol/L Carbon Dioxide 32 H (22-29) mmol/L Anion Gap 10 L (12-20) BUN 12 (9-16) mg/dL Creatinine 0.94 (0.5-1.4) mg/dL Estim Creat Clear Calc 77.8 Estimated GFR > 60 Random Glucose 96 D (60-115) mg/dL Fasting Glucose (60-99) mg/dL Calcium 8.9 (8.4-10.2) mg/dL Total Bilirubin 0.9 (0.0-1.0) mg/dL AST 987 H (5-37) U/L ALT 924 H (0-40) U/L Alkaline Phosphatase 110 (39-117) U/L Total Protein 6.9 (6.5-8.0) g/dL Albumin 3.8 (3.5-5.0) g/dL Lipase 15 (8-78) U/L Urine Opiates Screen (Not Detect) Urine Fentanyl Screen (Not Detect) Ur Barbiturates Screen (Not Detect) Ur Phencyclidine Scrn (Not Detect) Ur Amphetamines Screen (Not Detect) U Benzodiazepines Scrn (Not Detect) Urine Cocaine Screen (Not Detect) U Marijuana (THC) Screen (Not Detect) COVID-19 (DAVE) Negative (Negative) COVID-19 Clin Com See Note <FLORENCIO Rodriguez - Last Filed: 08/27/21 17:23> Lab Results 08/27/21 08/27/21 08/27/21 Range/Units 11:53 11:53 11:53 WBC 5.7 (4.8-10.8) X10*3/uL RBC 4.89 (4.60-5.80) X10*6/uL Hgb 13.3 L (14.0-18.0) g/dl Hct 41.5 L (42.0-52.0) % MCV 84.9 (80.0-98.0) fL MCH 27.2 (27.0-33.0) pg MCHC 32.0 (31.0-36.0) g/dl RDW 13.5 (11.0-16.0) % Plt Count 186 (160-400) X10*3/uL MPV 10.4 (9.4-12.4) fL Immature Gran % (Auto) 0.4 (0.0-0.4) % Neut % (Auto) 85.9 H (45-73) % Lymph % (Auto) 6.9 L (20-40) % Hudson % (Auto) 6.2 (2-11) % Eos % (Auto) 0.2 (0-4) % Baso % (Auto) 0.4 (0-2) % Lymph # (Auto) 0.4 L (1.2-4.9) X10*3/uL Hudson # (Auto) 0.4 (0.1-1.2) X10*3/uL Eos # (Auto) 0.0 (0.0-0.4) X10*3/uL Baso # (Auto) 0.0 (0.0-0.2) X10*3/uL Abs Immat Gran (auto) 0.02 (0.00-0.03) X10*3/uL Absolute Neuts (auto) 4.9 (2.0-8.3) x10*3/uL Absolute Nucleated RBC 0.000 (0.0-0.012) X10*3/uL Nucleated RBC % (auto) 0.0 (0.0-0.2) /100WBC Sodium 134 L (135-145) mmol/L Potassium 5.0 D (3.3-5.1) mmol/L Chloride 102 (96-108) mmol/L Carbon Dioxide 24 (22-29) mmol/L Anion Gap 13 (12-20) BUN 12 (9-16) mg/dL Creatinine 1.08 (0.5-1.4) mg/dL Estim Creat Clear Calc 67.7 Estimated GFR > 60 Random Glucose (60-115) mg/dL Fasting Glucose 125 H (60-99) mg/dL Calcium 8.6 (8.4-10.2) mg/dL Total Bilirubin 1.2 H (0.0-1.0) mg/dL AST 862 H (5-37) U/L ALT 771 H (0-40) U/L Alkaline Phosphatase 98 D (39-117) U/L Total Protein 7.1 (6.5-8.0) g/dL Albumin 3.7 (3.5-5.0) g/dL Lipase (8-78) U/L Urine Opiates Screen POSITIVE H (Not Detect) Urine Fentanyl Screen POSITIVE H (Not Detect) Ur Barbiturates Screen Not Detected (Not Detect) Ur Phencyclidine Scrn Not Detected (Not Detect) Ur Amphetamines Screen Not Detected (Not Detect) U Benzodiazepines Scrn Not Detected (Not Detect) Urine Cocaine Screen POSITIVE H (Not Detect) U Marijuana (THC) Screen Not Detected (Not Detect) COVID-19 (DAVE) (Negative) COVID-19 Clin Com 08/27/21 08/27/21 Range/Units 12:43 17:33 WBC (4.8-10.8) X10*3/uL RBC (4.60-5.80) X10*6/uL Hgb (14.0-18.0) g/dl Hct (42.0-52.0) % MCV (80.0-98.0) fL MCH (27.0-33.0) pg MCHC (31.0-36.0) g/dl RDW (11.0-16.0) % Plt Count (160-400) X10*3/uL MPV (9.4-12.4) fL Immature Gran % (Auto) (0.0-0.4) % Neut % (Auto) (45-73) % Lymph % (Auto) (20-40) % Hudson % (Auto) (2-11) % Eos % (Auto) (0-4) % Baso % (Auto) (0-2) % Lymph # (Auto) (1.2-4.9) X10*3/uL Hudson # (Auto) (0.1-1.2) X10*3/uL Eos # (Auto) (0.0-0.4) X10*3/uL Baso # (Auto) (0.0-0.2) X10*3/uL Abs Immat Gran (auto) (0.00-0.03) X10*3/uL Absolute Neuts (auto) (2.0-8.3) x10*3/uL Absolute Nucleated RBC (0.0-0.012) X10*3/uL Nucleated RBC % (auto) (0.0-0.2) /100WBC Sodium 138 (135-145) mmol/L Potassium 4.4 (3.3-5.1) mmol/L Chloride 100 (96-108) mmol/L Carbon Dioxide 32 H (22-29) mmol/L Anion Gap 10 L (12-20) BUN 12 (9-16) mg/dL Creatinine 0.94 (0.5-1.4) mg/dL Estim Creat Clear Calc 77.8 Estimated GFR > 60 Random Glucose 96 D (60-115) mg/dL Fasting Glucose (60-99) mg/dL Calcium 8.9 (8.4-10.2) mg/dL Total Bilirubin 0.9 (0.0-1.0) mg/dL AST 987 H (5-37) U/L ALT 924 H (0-40) U/L Alkaline Phosphatase 110 (39-117) U/L Total Protein 6.9 (6.5-8.0) g/dL Albumin 3.8 (3.5-5.0) g/dL Lipase 15 (8-78) U/L Urine Opiates Screen (Not Detect) Urine Fentanyl Screen (Not Detect) Ur Barbiturates Screen (Not Detect) Ur Phencyclidine Scrn (Not Detect) Ur Amphetamines Screen (Not Detect) U Benzodiazepines Scrn (Not Detect) Urine Cocaine Screen (Not Detect) U Marijuana (THC) Screen (Not Detect) COVID-19 (DAVE) Negative (Negative) COVID-19 Clin Com See Note <Fatmata Rivas NP - Last Filed: 08/27/21 21:01> Discharge Plan Discharge Clinical Impression: Substance induced mood disorder, Opioid use disorder, moderate, dependence, Suicidal ideation <FLORENCIO Rodriguez - Last Filed: 08/27/21 17:23> Patient Disposition: Still a Patient <FLORENCIO Rodriguez - Last Filed: 08/27/21 17:23> Instructions: Mood Disorders (ED), Suicide Prevention (ED), Opioid Use Disorder (ED) <FLORENCIO Rodriguez - Last Filed: 08/27/21 17:23> Prescriptions: No Action methadone 77 mg PO DAILY 0RF quetiapine 200 mg Tablet 200 mg PO BID Qty: 60 0RF baclofen 10 mg Tablet 10 mg PO TID PRN (Reason: muscle spasm) Qty: 15 0RF <FLORENCIO Rodriguez - Last Filed: 08/27/21 17:23> Print Language: Syriac <FLORENCIO Rodriguez - Last Filed: 08/27/21 17:23>
--- NOTE | 2021-08-27 10:37 | PHA.MEDREC ---
Pharmacy Consult ? Medication Reconciliation Pharmacy has completed the medication reconciliation. Patient reports he takes only baclofen and seroquel. Admitted to provider it has been over two week since he has taken meds. Patient reports he get methadone [facility] Currently not answer, will follow-up. Tari Spears, PharmD
[2021-08-27] MEDS: LORazepam 1 MG TABLET 2 MG PO ×2 (10:47→16:33)
[2021-08-27 10:53] VITALS: BP 121/75; PULSE 64; TEMP 36.8; O2SAT 94
[2021-08-27 11:58] LABS: Basophils Percent Auto 0.4 % (0-2); Eosinophils Percent Auto 0.2 % (0-4); Hematocrit 41.5 % (42.0-52.0); Hemoglobin 13.3 g/dl (14.0-18.0); Imm Gran Abs Auto 0.02 X10*3/uL (0.00-0.03); Imm Gran Pct Auto 0.4 % (0.0-0.4); Lymphocytes Absolute Auto 0.4 X10*3/uL (1.2-4.9); Lymphocytes Percent Auto 6.9 % (20-40); MANUAL DIFF FLAG NO; Mean Corpuscular Hemoglobin 27.2 pg (27.0-33.0); Mean Corpuscular Volume 84.9 fL (80.0-98.0); Mean Platelet Volume 10.4 fL (9.4-12.4); Monocytes Absolute Auto 0.4 X10*3/uL (0.1-1.2); Monocytes Percent Auto 6.2 % (2-11); Neutrophils Absolute Auto 4.9 x10*3/uL (2.0-8.3); Neutrophils Percent Auto 85.9 % (45-73); Platelet Count 186 X10*3/uL (160-400); Red Blood Count 4.89 X10*6/uL (4.60-5.80); Red Cell Distribution Width 13.5 % (11.0-16.0); White Blood Count 5.7 X10*3/uL (4.8-10.8)
[2021-08-27 12:16] LABS: Amphetamine Screen Urine Not Detected (Not Detect); Barbiturates, Urine Not Detected (Not Detect); Benzodiazepines Screen Urine Not Detected (Not Detect); Cannabinoid Screen Urine Not Detected (Not Detect); Cocaine Screen Urine POSITIVE (Not Detect); Fentanyl, urine POSITIVE (Not Detect); Opiate Screen Urine POSITIVE (Not Detect); Phencyclidine Screen Urine Not Detected (Not Detect)
[2021-08-27 12:27] LABS: Alanine Aminotransferase 771 U/L (0-40); Albumin Level 3.7 g/dL (3.5-5.0); Alkaline Phosphatase 98 U/L (39-117); Anion Gap 13 (12-20); Aspartate Amino Transferase 862 U/L (5-37); Bilirubin Total 1.2 mg/dL (0.0-1.0); Blood Urea Nitrogen 12 mg/dL (9-16); Calcium 8.6 mg/dL (8.4-10.2); Carbon Dioxide 24 mmol/L (22-29); Chloride 102 mmol/L (96-108); Creatinine Clr Calc Pharmacy 67.7; Estimated Glomerular Filt Rate > 60; Glucose Fasting 125 mg/dL (60-99); Sodium 134 mmol/L (135-145); Total Protein 7.1 g/dL (6.5-8.0)
--- NOTE | 2021-08-27 12:52 | PC.NURSE ---
Pt to pod from main. Smartsheet sent to N, belongings placed in locker 5. Pt calm and cooperative at thsi time, hyperverbal.
[2021-08-27 13:06] LABS: COVID-19 Test Negative (Negative); IDNOW Serial# 16C4AD1C
[2021-08-27 18:09] LABS: Alanine Aminotransferase 924 U/L (0-40); Albumin Level 3.8 g/dL (3.5-5.0); Alkaline Phosphatase 110 U/L (39-117); Anion Gap 10 (12-20); Aspartate Amino Transferase 987 U/L (5-37); Bilirubin Total 0.9 mg/dL (0.0-1.0); Blood Urea Nitrogen 12 mg/dL (9-16); Calcium 8.9 mg/dL (8.4-10.2); Carbon Dioxide 32 mmol/L (22-29); Chloride 100 mmol/L (96-108); Creatinine Clr Calc Pharmacy 77.8; Estimated Glomerular Filt Rate > 60; Glucose Random 96 mg/dL (60-115); Potassium 4.4 mmol/L (3.3-5.1); Sodium 138 mmol/L (135-145); Total Protein 6.9 g/dL (6.5-8.0)
[2021-08-27 20:39] LABS: Lipase 15 U/L (8-78)
--- NOTE | 2021-08-27 22:09 | MHC.CARE ---
Please consult CARE team after pt is medically cleared for a risk screening.
[2021-08-27] MEDS: iohexoL 350 MG/ML 100 ML INFUS..BTL IV (22:28)
[2021-08-27] MEDS: 0.9 % Sodium Chloride 1,000 ML 999 ML IV (23:02)
[2021-08-27] MEDS: ondansetron HCL 4 MG/2 ML VIAL IVPUSH (23:05)
[2021-08-27 23:21] VITALS: BP 110/63; PULSE 78; RESP 16; O2SAT 97
--- NOTE | 2021-08-27 23:45 | P.HPHOSP_ITS ---
History of Present Illness Date of Service: 08/27/21 Chief Complaint: suicidal This is a 56-year-old male with past medical history of polysubstance abuse hepatitis-C, anxiety and depression, arthritis, opioid dependence, presents to the hospital with complaints of suicidal and homicidal ideation. pt reports that he got kicked out of the place he was living in, he lost all his medications and resorted to using sentinel on the streets. He reports that ever since using fentanyl for the past 2 weeks he has just not been feeling well. He reports that every time he has no access to his medication he becomes suicidal homicidal. He just feels pain all over his body with no specific area more painful. He had denies any fever but has chills. He denies any abdominal pain, but is significantly constipated and reports that he has not had a bowel movement in few days. Initial arrival to the ED patient hemodynamically stable with no significant abnormal vitals Initial labs were significant for WBC count of 5.7, hemoglobin of 13.3, calcium of 8.9, total bili of 1.2, AST of a 62, 771 for ALT, increased to 9087 and 924. Salicylate less than 5, Tylenol less than 1. UA is positive for opioids, fentanyl, as well as cocaine. Hepatitis panel pending Given patient's significant LFT elevation, he will require a medically necessary 2 night admission for evaluation and monitoring Review of Systems Review of Systems: Yes all other systems are reviewed and are negative [facility] Medical History Arthritis Chronic venous insufficiency History of hepatitis C Opiate dependence Panic disorder Polysubstance abuse Tobacco dependence Varicose veins of both lower extremities Family History Maternal Aunt Cardiac disorder Maternal Grandmother Cardiac disorder Mother Diabetes Hypertension Surgical History H/O removal of cyst Social History Household Members: None Housing: Apartment Do you presently have visiting nurse or other home services: No Alcohol intake: former Patient Tobacco Use Status: Never used Tobacco Tobacco use type: Cigarette e-Cigarette/Vaping Use: Never Used Second Hand Smoke Exposure: Yes Substance Use Type: Crack/Cocaine and Opiates Advance Directives: No Advance Directives Information Provided: No service: No Sexual orientation: Did not discuss Meds Allergies Allergy/AdvReac Type Severity Reaction Status Date / Time vancomycin [Vancomycin] Allergy Mild HIVES Verified 08/27/21 10:01 Active Medications: Current Medications Acetaminophen (Acetaminophen 325 Mg Tablet) 650 mg PO Q6H PRN PRN Reason: Pain, Mild (Pain Scale 1-3) Docusate Sodium (Docusate Sodium 100 Mg Capsule) 100 mg PO DAILY PRN PRN Reason: Constipation Enoxaparin Sodium (Enoxaparin Sodium 40 Mg/0.4 Ml Syringe) 40 mg SUBCUT Q24H GRAHAM Morphine Sulfate (Morphine Sulfate 4 Mg/Ml Cartridge) 4 mg IVPUSH Q4H PRN; Protocol PRN Reason: Pain, Severe (Pain Scale 7-10) Ondansetron HCl (Ondansetron Hcl 4 Mg/2 Ml Vial) 4 mg IVPUSH Q8H PRN PRN Reason: Nausea and Vomiting Pharmacy Consult (Consult Rx Perform Med Rec) 1 each MISCELLANE ONCE PRN PRN Reason: Consult order Pharmacy Consult (Consult Rx Perform Med Rec) 1 each MISCELLANE ONCE PRN PRN Reason: Consult order Sodium Chloride (0.9 % Sodium Chloride Flush 3 Ml Syringe) 3 ml IVFLUSH QSHIST. [facility] Home Medications Medication Instructions Recorded Confirmed Last Taken Type methadone 77 mg PO DAILY 05/28/20 03/23/21 03/19/21 06:50 History Physical Exam Vital Signs and Narrative: Vital Signs: Last Vital Signs Temp 98.2 F 08/27/21 10:53 Pulse 78 08/27/21 23:21 Resp 16 08/27/21 23:21 BP 110/63 08/27/21 23:21 Pulse Ox 97 08/27/21 23:21 BMI result Body Mass Index 21.9 Const: General: cooperative and no acute distress Orientation/consciousness: patient oriented x3 Eyes: General: appearance normal, both eyes and all related structures Pupils: Equal, round and reactive pupils present Resp: Effort & Inspection: normal respiratory effort Auscultation: clear to auscultation bilaterally Cardio: Rate: regular rate Rhythm: regular rhythm GI: Palpation (GI): Soft to palpation Auscultation: normal bowel sounds Skin: General skin exam: no rashes or lesions noted Neuro: General: patient oriented x3 Cranial nerves: Yes Equal, round and reactive pupils present Cognition (Neuro): normal cognition Extrem: General: Yes normal to inspection and Yes no pedal edema Results Labs CBC and Chem 7: 08/28/21 06:15 08/28/21 06:15 Labs: Laboratory Results - last 24 hr 08/27/21 08/27/21 08/27/21 11:53 11:53 11:53 MCV 84.9 MCH 27.2 MCHC 32.0 RDW 13.5 Plt Count 186 MPV 10.4 Immature Gran % (Auto) 0.4 Neut % (Auto) 85.9 H Lymph % (Auto) 6.9 L [place] % (Auto) 6.2 Eos % (Auto) 0.2 Baso % (Auto) 0.4 Lymph # (Auto) 0.4 L [place] # (Auto) 0.4 Eos # (Auto) 0.0 Baso # (Auto) 0.0 Abs Immat Gran (auto) 0.02 Absolute Neuts (auto) 4.9 Absolute Nucleated RBC 0.000 Nucleated RBC % (auto) 0.0 Anion Gap 13 Estim Creat Clear Calc 67.7 Estimated GFR > 60 Random Glucose Fasting Glucose 125 H Calcium 8.6 Total Bilirubin 1.2 H AST 862 H ALT 771 H Alkaline Phosphatase 98 D Total Protein 7.1 Albumin 3.7 Lipase Urine Opiates Screen POSITIVE H Urine Fentanyl Screen POSITIVE H Ur Barbiturates Screen Not Detected Ur Phencyclidine Scrn Not Detected Ur Amphetamines Screen Not Detected U Benzodiazepines Scrn Not Detected Urine Cocaine Screen POSITIVE H U Marijuana (THC) Screen Not Detected COVID-19 (DAVE) COVID-19 Clin Com 08/27/21 08/27/21 12:43 17:33 MCV MCH MCHC RDW Plt Count MPV Immature Gran % (Auto) Neut % (Auto) Lymph % (Auto) [place] % (Auto) Eos % (Auto) Baso % (Auto) Lymph # (Auto) [place] # (Auto) Eos # (Auto) Baso # (Auto) Abs Immat Gran (auto) Absolute Neuts (auto) Absolute Nucleated RBC Nucleated RBC % (auto) Anion Gap 10 L Estim Creat Clear Calc 77.8 Estimated GFR > 60 Random Glucose 96 D Fasting Glucose Calcium 8.9 Total Bilirubin 0.9 AST 987 H ALT 924 H Alkaline Phosphatase 110 Total Protein 6.9 Albumin 3.8 Lipase 15 Urine Opiates Screen Urine Fentanyl Screen Ur Barbiturates Screen Ur Phencyclidine Scrn Ur Amphetamines Screen U Benzodiazepines Scrn Urine Cocaine Screen U Marijuana (THC) Screen COVID-19 (DAVE) Negative COVID-19 Clin Com See Note Imaging Radiologist's Impressions: Impressions Abdomen/Pelvis CT 08/27/21 22:31 IMPRESSION: 1. No acute abnormalities in the abdomen and pelvis. 2. A nonobstructing 2 mm calculus in the right lower renal pole. Fleischner guidelines were followed. Assessment and Plan (1) Acute hepatitis: Status: Acute (2) Suicidal ideation: Status: Acute (3) Polysubstance abuse: Status: Acute Plan 56-year-old male with past medical history positive since abuse, depression anxiety, presents to the hospital with suicidal ideation found to have acute hepatitis # acute hepatitis - possibly induced by cocaine abuse versus other etiology including hepatitis, - patient has significantly elevated LFTs, AST more than ALT - salicylate negative, Tylenol level negative - will start him on IV fluids - hepatitis panel pending - will follow liver panel - GI consulted # suicidal ideation - sitter at bedside - psych consulted # poly substance abuse - resume methadone DVT prophylaxis Lovenox Quality Stroke Does the patient have a stroke diagnosis?: No VTE Prior VTE?: No VTE Risk Level:: Medical - moderate - high VTE Device Contraindication: Treatment Not Indicated VTE Drug Contraindication: N/A - Med Ordered
[2021-08-28] VITALS (7 sets, daily range): BP systolic 98–133; BP diastolic 47–65; PULSE 50–72; RESP 14–18; TEMP 36.7–38.8; O2SAT 93–99
[2021-08-28 00:01] LABS: Acetaminophen LAB < 1 mcg/mL (<30); Salicylate < 5.0 mg/dL (15-30)
[2021-08-28 00:11] LABS: Ethanol < 10 mg/dL
[2021-08-28] MEDS: Morphine Sulfate 4 MG/ML CARTRIDGE IVPUSH ×2 (03:20→16:08)
[2021-08-28] MEDS: ondansetron HCL 4 MG/2 ML VIAL IVPUSH (03:21)
[2021-08-28] MEDS: Ibuprofen 600 MG TABLET PO (03:44)
[2021-08-28] MEDS: Piperacillin Sodium/Tazobactam 3.375 GM in 0.9 % Sodium Chloride 50 ML IV ×3 (05:32→17:13)
--- NOTE | 2021-08-28 05:54 | PC.NURSE ---
Pt resting, walking on own to rest room, Pharmacy to call clinic for methadone, Pt needs met, call light in reach, this RN cocntinues to monitor.
[2021-08-28] MEDS: Doxycycline Hyclate 100 MG in 0.9 % Sodium Chloride 250 ML 166.67 MG IV ×2 (06:18→17:41)
[2021-08-28 06:31] LABS: MANUAL DIFF FLAG NO
[2021-08-28] MEDS: 0.9 % Sodium Chloride 1,905.09 ML 1905.09 ML IV (06:40)
[2021-08-28 06:43] LABS: Basophils Percent Auto 0.3 % (0-2); Eosinophils Percent Auto 0.8 % (0-4); Hematocrit 36.5 % (42.0-52.0); Hemoglobin 11.8 g/dl (14.0-18.0); Lymphocytes Absolute Auto 0.6 X10*3/uL (1.2-4.9); Lymphocytes Percent Auto 15.5 % (20-40); Mean Corpuscular HGB Conc 32.3 g/dl (31.0-36.0); Mean Corpuscular Hemoglobin 27.4 pg (27.0-33.0); Mean Corpuscular Volume 84.7 fL (80.0-98.0); Mean Platelet Volume 11.3 fL (9.4-12.4); Monocytes Absolute Auto 0.5 X10*3/uL (0.1-1.2); Monocytes Percent Auto 13.7 % (2-11); Neutrophils Absolute Auto 2.7 x10*3/uL (2.0-8.3); Neutrophils Percent Auto 69.7 % (45-73); Platelet Count 143 X10*3/uL (160-400); Red Blood Count 4.31 X10*6/uL (4.60-5.80); Red Cell Distribution Width 13.3 % (11.0-16.0); White Blood Count 3.9 X10*3/uL (4.8-10.8)
[2021-08-28 06:45] LABS: Lactic Acid 1.7 mmol/L (0.5-2.0)
[2021-08-28 06:52] LABS: Alanine Aminotransferase 1121 U/L (0-40); Albumin Level 3.1 g/dL (3.5-5.0); Alkaline Phosphatase 109 U/L (39-117); Anion Gap 11 (12-20); Aspartate Amino Transferase 1260 U/L (5-37); Bilirubin Direct 1.1 mg/dL (0.0-0.5); Bilirubin Total 1.6 mg/dL (0.0-1.0); Blood Urea Nitrogen 8 mg/dL (9-16); Calcium 7.8 mg/dL (8.4-10.2); Carbon Dioxide 24 mmol/L (22-29); Chloride 102 mmol/L (96-108); Cholesterol 137 mg/dL; Creatinine Clr Calc Pharmacy 85.1; Estimated Glomerular Filt Rate > 60; Glucose Random 109 mg/dL (60-115); HDL Cholesterol 32 mg/dL; LDL Cholesterol Calculated 91 mg/dl; Potassium 3.7 mmol/L (3.3-5.1); Sodium 133 mmol/L (135-145); Total Protein 5.6 g/dL (6.5-8.0); Triglycerides 71 mg/dL
--- NOTE | 2021-08-28 07:09 | PM.EVENT ---
Event Note Date of Service: 08/28/21 Event Note: pt developed fever overnight - no clear source at this time - lactic acid, blood cultures, drawn - will obtain chest x-ray and UA - broad-spectrum antibiotic started
[2021-08-28 07:19] LABS: Appearance Urine CLEAR; Color Urine YELLOW; Glucose Urine UA NEG (NEG); Leukocyte Esterase Urine NEG (NEG); Nitrite Urine NEG (NEG); Specific Gravity - Urine <= 1.005 (1.005-1.025); Urine Blood 1+ (NEG); Urine Ketones NEG (NEG); Urine Protein NEG (NEG-TRACE)
[2021-08-28 07:59] LABS: RBC Urine 0-2 /HPF (0); WBC Urine 0 /HPF (0-4)
[2021-08-28] MEDS: polyethylene glycoL 3350 17 GM POWD.PACK PO ×2 (11:07→21:24)
[2021-08-28] MEDS: Enoxaparin Sodium 40 MG/0.4 ML SYRINGE SUBCUT (11:08)
--- NOTE | 2021-08-28 11:44 | P.PNIM_ITS ---
Subjective Subjective Date of Service: 08/28/21 Interval History: complaining of generalized pain, complaining of mild nausea able to eat breakfast, had a bowel movement, noted to have fever 101.9 at 03:30, no fever since, denies chills no cough no sputum production no urinary symptoms of urgency frequency. Review of Systems Review of Systems: Yes all other systems are reviewed and are negative Physical Exam Vital Signs: Vital Signs: Last Vital Signs Temp 98.9 F 08/28/21 06:40 Pulse 60 08/28/21 06:40 Resp 16 08/28/21 06:40 BP 98/47 L 08/28/21 06:40 Pulse Ox 93 08/28/21 06:40 BMI result Body Mass Index 21.9 Const: Other: General Awake alert x3, no acute distress. HEENT pupil equal round,reactive to light and accommodation, anicteric sclerae Neck supple, no JVD. CVS regular rate rhythm Respiratory lungs clear to auscultation, no respiratory distress, no wheeze, no rhonchi. Gastrointestinal abdomen soft, bowel sounds audible, no guarding , no rigidity, no right upper quadrant tenderness. Extremities no edema. Neuro nonfocal , speech clear. psych appropriate Objective Data Active Medications Docusate Sodium (Docusate Sodium 100 Mg Capsule) 100 mg PO DAILY PRN PRN Reason: Constipation Enoxaparin Sodium (Enoxaparin Sodium 40 Mg/0.4 Ml Syringe) 40 mg SUBCUT Q24H [facility] Last Admin: 08/28/21 11:08 Dose: 40 mg Documented by: CRYSTAL Piperacillin Sod/Tazobactam (Sod 3.375 gm/ Sodium Chloride) 50 mls @ 100 mls/hr IV Q6H [facility] Last Admin: 08/28/21 11:23 Dose: 100 mls/hr Documented by: CRYSTAL Doxycycline Hyclate 100 mg/ (Sodium Chloride) 250 mls @ 166.67 mls/hr IV Q12H [facility] Last Infusion: 08/28/21 09:43 Dose: 0 mls/hr Documented by: CRYSTAL Morphine Sulfate (Morphine Sulfate 4 Mg/Ml Cartridge) 4 mg IVPUSH Q4H PRN; Protocol PRN Reason: Pain, Severe (Pain Scale 7-10) Last Admin: 08/28/21 03:20 Dose: 4 mg Documented by: HO.N-RYANK Ondansetron HCl (Ondansetron Hcl 4 Mg/2 Ml Vial) 4 mg IVPUSH Q8H PRN PRN Reason: Nausea and Vomiting Last Admin: 08/28/21 03:21 Dose: 4 mg Documented by: MARIANELA Pharmacy Consult (Consult Rx Perform Med Rec) 1 each MISCELLANE ONCE PRN PRN Reason: Consult order Pharmacy Consult (Consult Rx Perform Med Rec) 1 each MISCELLANE ONCE PRN PRN Reason: Consult order Polyethylene Glycol (Polyethylene Glycol 3350 17 Gm Powd.Pack) 17 gm PO BID [facility] Last Admin: 08/28/21 11:07 Dose: 17 gm Documented by: CRYSTAL Sodium Chloride (0.9 % Sodium Chloride Flush 3 Ml Syringe) 3 ml IVFLUSH QSHIFT [facility] Last Admin: 08/28/21 09:43 Dose: Not Given Documented by: CRYSTAL Non-Admin Reason: IV Running Labs CBC & Chem 7: 08/28/21 06:15 08/28/21 06:15 Labs: Laboratory Results - last 24 hr 08/27/21 08/27/21 08/27/21 11:53 11:53 11:53 MCV 84.9 MCH 27.2 MCHC 32.0 RDW 13.5 Plt Count 186 MPV 10.4 Immature Gran % (Auto) 0.4 Neut % (Auto) 85.9 H Lymph % (Auto) 6.[address] [place] % (Auto) 6.2 Eos % (Auto) 0.2 Baso % (Auto) 0.4 Lymph # (Auto) 0.[address] [place] # (Auto) 0.4 Eos # (Auto) 0.0 Baso # (Auto) 0.0 Abs Immat Gran (auto) 0.02 Absolute Neuts (auto) 4.9 Absolute Nucleated RBC 0.000 Nucleated RBC % (auto) 0.0 Anion Gap 13 Estim Creat Clear Calc 67.7 Estimated GFR > 60 Random Glucose Fasting Glucose 125 H Lactic Acid Calcium 8.6 Total Bilirubin 1.2 H Direct Bilirubin AST 862 H ALT 771 H Alkaline Phosphatase 98 D Total Protein 7.1 Albumin 3.7 Triglycerides Cholesterol LDL Cholesterol, Calc HDL Cholesterol Lipase Urine Color Urine Appearance Urine pH Ur Specific [place] Urine Protein Urine Glucose (UA) Urine Ketones Urine Blood Urine Nitrite Ur Leukocyte Esterase Urine RBC Urine WBC Ur Squamous Epith Cells Urine Bacteria Salicylates Urine Opiates Screen POSITIVE H Urine Fentanyl Screen POSITIVE H Acetaminophen Ur Barbiturates Screen Not Detected Ur Phencyclidine Scrn Not Detected Ur Amphetamines Screen Not Detected U Benzodiazepines Scrn Not Detected Urine Cocaine Screen POSITIVE H U Marijuana (THC) Screen Not Detected Ethyl Alcohol COVID-19 (DAVE) COVID-19 Clin Com 08/27/21 08/27/21 08/27/21 12:43 17:33 23:48 MCV MCH MCHC RDW Plt Count MPV Immature Gran % (Auto) Neut % (Auto) Lymph % (Auto) [facility] % (Auto) Eos % (Auto) Baso % (Auto) Lymph # (Auto) [facility] # (Auto) Eos # (Auto) Baso # (Auto) Abs Immat Gran (auto) Absolute Neuts (auto) Absolute Nucleated RBC Nucleated RBC % (auto) Anion Gap 10 L Estim Creat Clear Calc 77.8 Estimated GFR > 60 Random Glucose 96 D Fasting Glucose Lactic Acid Calcium 8.9 Total Bilirubin 0.9 Direct Bilirubin AST 987 H ALT 924 H Alkaline Phosphatase 110 Total Protein 6.9 Albumin 3.8 Triglycerides Cholesterol LDL Cholesterol, Calc HDL Cholesterol Lipase 15 Urine Color Urine Appearance Urine pH Ur Specific [place] Urine Protein Urine Glucose (UA) Urine Ketones Urine Blood Urine Nitrite Ur Leukocyte Esterase Urine RBC Urine WBC Ur Squamous Epith Cells Urine Bacteria Salicylates < 5.0 L Urine Opiates Screen Urine Fentanyl Screen Acetaminophen < 1 Ur Barbiturates Screen Ur Phencyclidine Scrn Ur Amphetamines Screen U Benzodiazepines Scrn Urine Cocaine Screen U Marijuana (THC) Screen Ethyl Alcohol < 10 COVID-19 (DAVE) Negative COVID-19 Clin Com See Note 08/28/21 08/28/21 08/28/21 06:15 06:15 06:15 MCV 84.7 MCH 27.4 MCHC 32.3 RDW 13.3 Plt Count 143 L MPV 11.3 Immature Gran % (Auto) 0.0 Neut % (Auto) 69.7 Lymph % (Auto) 15.[address] [place] % (Auto) 13.7 H Eos % (Auto) 0.8 Baso % (Auto) 0.3 Lymph # (Auto) 0.[address] [place] # (Auto) 0.5 Eos # (Auto) 0.0 Baso # (Auto) 0.0 Abs Immat Gran (auto) 0.00 Absolute Neuts (auto) 2.7 Absolute Nucleated RBC 0.000 Nucleated RBC % (auto) 0.0 Anion Gap 11 L Estim Creat Clear Calc 85.1 Estimated GFR > 60 Random Glucose 109 Fasting Glucose Lactic Acid Calcium 7.8 L D Total Bilirubin Direct Bilirubin AST ALT Alkaline Phosphatase Total Protein Albumin Triglycerides 71 Cholesterol 137 LDL Cholesterol, Calc 91 HDL Cholesterol 32 D Lipase Urine Color Urine Appearance Urine pH Ur Specific [place] Urine Protein Urine Glucose (UA) Urine Ketones Urine Blood Urine Nitrite Ur Leukocyte Esterase Urine RBC Urine WBC Ur Squamous Epith Cells Urine Bacteria Salicylates Urine Opiates Screen Urine Fentanyl Screen Acetaminophen Ur Barbiturates Screen Ur Phencyclidine Scrn Ur Amphetamines Screen U Benzodiazepines Scrn Urine Cocaine Screen U Marijuana (THC) Screen Ethyl Alcohol COVID-19 (DAVE) COVID-Benefitter 08/28/21 08/28/21 08/28/21 06:15 06:15 07:08 MCV MCH MCHC RDW Plt Count MPV Immature Gran % (Auto) Neut % (Auto) Lymph % (Auto) [facility] % (Auto) Eos % (Auto) Baso % (Auto) Lymph # (Auto) [facility] # (Auto) Eos # (Auto) Baso # (Auto) Abs Immat Gran (auto) Absolute Neuts (auto) Absolute Nucleated RBC Nucleated RBC % (auto) Anion Gap Estim Creat Clear Calc Estimated GFR Random Glucose Fasting Glucose Lactic Acid 1.7 Calcium Total Bilirubin 1.6 H Direct Bilirubin 1.1 H AST 1260 H ALT 1121 H Alkaline Phosphatase 109 Total Protein 5.6 L Albumin 3.1 L Triglycerides Cholesterol LDL Cholesterol, Calc HDL Cholesterol Lipase Urine Color YELLOW Urine Appearance CLEAR Urine pH 6.0 Ur Specific [place] <= 1.005 Urine Protein NEG Urine Glucose (UA) NEG Urine Ketones NEG Urine Blood 1+ H Urine Nitrite NEG Ur Leukocyte Esterase NEG Urine RBC 0-2 Urine WBC 0 Ur Squamous Epith Cells NONE Urine Bacteria NONE Salicylates Urine Opiates Screen Urine Fentanyl Screen Acetaminophen Ur Barbiturates Screen Ur Phencyclidine Scrn Ur Amphetamines Screen U Benzodiazepines Scrn Urine Cocaine Screen U Marijuana (THC) Screen Ethyl Alcohol COVID-19 (DAVE) COVID-19 [employer] Assessment and Plan (1) Polysubstance abuse: Status: Acute (2) Suicidal ideation: Status: Acute (3) Acute hepatitis: Status: Acute (4) Cocaine use disorder, moderate, dependence: Status: Acute (5) Opioid use disorder, moderate, dependence: Status: Acute Assessment and Plan: 56-year-old male with past medical history positive for polysubstance abuse, hepatitis-C,depression anxiety, presents to the hospital with suicidal ideation found to have acute hepatitis, constipation and generalized pain. #acute hepatitis possibly induced by cocaine abuse , with baseline history of hepatitis C patient denies abdominal pain, has mild nausea able to eat LFTs trending up, salicylate and Tylenol level negative continue supportive care with IV fluids avoid hepatotoxins, follow hepatitis panel and LFTs await GI input # fever no evidence of sepsis no recurrent fevers workup including lactic acid, CT abdomen showed no acute abnormalities, showed nonobstructing 2 mm calculus right lower renal pole, UA and chest x-ray unremarkable follow clinical course and blood culture # suicidal ideation - sitter at bedside/ obtain BHN consult when medically stable - psych consulted # poly substance abuse noted to have positive cocaine, fentanyl and opiates, history of chronic abuse, obtain care team consult, takes methadone at home will verify dose from providing facility will treat with as needed morphine/Ativan. # constipation resolved likely due to narcotics,cont.stool softners. # mood disorder noted to be on Seroquel 200 mg twice daily but patient has not filled since June since patient is sedated with low blood pressure will hold Seroquel for now and follow clinical coursel DVT prophylaxis Lovenox patient will need inpatient hospitalization due to worsening LFTs and suicidal ideation Plan Labs: Laboratory Results - last 24 hr B B AST ? ?862 H ? ALTB ? ?771 H ? Alkaline Phosphatase ? ?98? D ? Total Protein ? ?7.1 ? Albumin ? ?3.7 ? Lipase ? ? ? Urine Opiates Screen ? ? ?POSITIVE H Urine Fentanyl Screen ? ? ?POSITIVE H Ur Barbiturates Screen ? ? ?Not Detected Ur Phencyclidine Scrn ? ? ?Not Detected Ur Amphetamines Screen ? ? ?Not Detected U Benzodiazepines Scrn ? ? ?Not Detected Urine Cocaine Screen ? ? ?POSITIVE H U Marijuana (THC) ScreenB ? ? ?Not Detected COVID-19 (DAVE) ? ? ? COVID-19 Clin Com ? 08/27/21 08/27/21 ? 12:43 17:33 MCV ? ? MCH ? ? MCHC ? ? RDW ? ? Plt Count ? ? MPV ? ? Immature Gran % (Auto) ? ? Neut % (Auto) ? ? Lymph % (Auto) ? ? [facility] % (Auto) ? ? Eos % (Auto) ? ? Baso % (Auto) ? ? Lymph # (Auto) ? ? [facility] [place] # (Auto) ? ? Eos # (Auto) ? ? Baso # (Auto) ? ? Abs Immat Gran (auto) ? ? Absolute Neuts (auto) ? ? Absolute Nucleated RBC ? ? Nucleated RBC % (auto) ? ? Anion Gap ? ?10 L Estim Creat Clear Calc ? ?77.8 Estimated GFR ? ?> 60 D Random Glucose ? ?96? D Fasting Glucose ? ? Calcium ? ?8.9 Total Bilirubin ? ?0.9 AST ? ?987 H ALT ? ?924 H D Alkaline Phosphatase ? ?110 Total Protein ? ?6.9 Albumin ? ?3.8 Lipase ? ?15 Urine Opiates Screen ? ? Urine Fentanyl Screen ? ? Ur Barbiturates Screen ? ? Ur Phencyclidine Scrn ? ? Ur Amphetamines Screen ? ? U Benzodiazepines Scrn ? ? Urine Cocaine Screen ? ? D U Marijuana (THC) Screen ? ? COVID-19 (DAVE) ?Negative ? COVID-19 Clin Com ?See Note ? Quality Stroke Does the patient have a stroke diagnosis?: No VTE Prior VTE?: No VTE Risk Level:: Medical - moderate - high VTE Device Contraindication: Treatment Not Indicated VTE Drug Contraindication: N/A - Med Ordered
--- NOTE | 2021-08-28 11:58 | PC.NURSE ---
pt alert and oriented, vss, denies pain. pt admits SI, denies HI. Pt states I don't know yet if I have a plan, it depends on the outcome here in the hospital . pt resting quietly in bed, staff 1:1 sitter remains at his bedside. meds given as documented. will continue to monitor.
--- NOTE | 2021-08-28 12:17 | PC.NURSE ---
this loan underwriter called [facility] in [place] to verify pt's methadone dose. Per answering service the clinic closes at 1130 on the weekends. this loan underwriter spoke with Mireya in the pharmacy department and she will follow-up with Dr. Mack. will continue to monitor.
--- NOTE | 2021-08-28 13:50 | PC.NURSE ---
pt's son visiting, pt admits SI no plan, denies HI. staff 1:1 sitter at bedside.
--- NOTE | 2021-08-28 14:09 | PC.NURSE ---
pt's son left his cell phone number Canelo Walls ).
--- NOTE | 2021-08-28 14:50 | MHC.CM.PN ---
Attempted to meet with pt to discuss d/c plannin:1 sitter present d/t pt's statements of SI: Pt's son had left after visiting: pt states he is tired and not interested in CM assessment at this time. Will attempt on 08/29 when pt is better rested.
[2021-08-28] MEDS: 0.9 % Sodium Chloride Flush 3 ML SYRINGE IVFLUSH (16:09)
[2021-08-28 16:23] LABS: INTERNATIONAL NORM RATIO 1.4 (0.9-1.1); Prothrombin Time 15.9 SEC (9.9-13.0)
[2021-08-28] MEDS: methADONE HCl 20 MG/2 ML ORAL.CONC 30 MG PO (18:35)
--- NOTE | 2021-08-28 19:41 | PM.EVENT ---
Event Note Date of Service: 08/28/21 Event Note: GI Consult-Full note dictated-Hx via patient and EMR. Imp: Acute hepatitis in relation to the recent use of street drugs . He reports that he did not use any IV drugs and only used them nasally. He has tested + for cocaine, opiates, and fentanyl. He describes abstinence until recently losing his psych meds. He denies any EtOH. He has a +HCV antibody and nondetectable HCV viral load in the past.His acetaminophen level was nondetectable. He does not show signs of hepatic failure at this time. His PT/INR and TBili are only slightly elevated. CT of the abdomen was nonrevealing. His clinical picture is c/w acute hepatitis in relation to acute toxin ingestion. Rec: Supportive care, F/U LFT's and PT/INR, avoid all hepatotoxins, and agree with checking Hepatitis viral profile, although his HCV antibody was already positive in the past. One could check a HCV viral load to see if it is now elevated, which would suggest an acute HCV infection from his recent drug activity. I have advised the patient of the need to remain abstinent from all drugs and alcohol. Thanks
[2021-08-28] MEDS: Zolpidem Tartrate 5 MG TABLET PO (21:29)
[2021-08-28] MEDS: diphenhydrAMINE HCL 50 MG/ML VIAL 25 MG IVPUSH (22:41)
[2021-08-29] MEDS: 0.9 % Sodium Chloride Flush 3 ML SYRINGE IVFLUSH ×3 (00:04→15:42)
[2021-08-29] MEDS: Piperacillin Sodium/Tazobactam 3.375 GM in 0.9 % Sodium Chloride 50 ML IV ×3 (00:04→15:46)
[2021-08-29] MEDS: Morphine Sulfate 4 MG/ML CARTRIDGE IVPUSH ×4 (00:15→18:22)
[2021-08-29 03:25] VITALS: BP 102/53; PULSE 65; RESP 14; TEMP 36.7; O2SAT 96
--- NOTE | 2021-08-29 03:36 | CONS_ITS ---
DATE OF SERVICE: 08/28/2021 REFERRING PHYSICIAN: Tam Mack MD REASON FOR CONSULTATION: Acute hepatitis. HISTORY OF PRESENT ILLNESS: The patient is a 56-year-old male with a history of substance abuse, who had been abstinent from that up until recently when he ran out of his psychiatric medication. He began using street drugs intranasally and came to the ER as he was not feeling well with symptoms including abdominal pain. His urine toxicology test was positive for cocaine, opiates, and fentanyl. He was found to have elevated LFTs and was admitted. He denies any recent IV drug use. He does describe a previous history of possible hepatitis C, although reports that he cleared that without any specific treatment. He denies any jaundice. He has had some generalized body discomfort, but no specific abdominal pain. He denies any recent vomiting. His appetite has been diminished for at least several days. He denies any signs of hematochezia nor melena. Aside from the recent use of the street drugs, he was not using any other prescription or [id number] medication such as acetaminophen. He denies any alcohol use. He denies any known family history of liver disease other than in a relative who was a heavy drinker and drug user. MEDICATIONS: At home included Seroquel, baclofen, and methadone. His medications here include Colace, doxycycline, Lovenox, morphine p.r.n., Zofran p.r.n., Zosyn, and MiraLAX. PAST MEDICAL HISTORY: History of substance abuse. Previous history of hepatitis C with a positive hepatitis C antibody, but nondetectable hepatitis C viral load. Arthritis. Depression. Panic disorder. Varicose veins. SOCIAL HISTORY: He does smoke. Substance abuse. He denies alcohol use. REVIEW OF SYSTEMS: CONSTITUTIONAL: He has been feeling poorly in general with diffuse body pain and anorexia. PSYCHIATRIC: He does have history of depression and anxiety. CARDIAC: No chest pain. PULMONARY: No cough. No hemoptysis. GASTROINTESTINAL: As above. PHYSICAL EXAMINATION: GENERAL: The patient is alert and cooperative male, in no distress. NECK: Supple without lymphadenopathy. ABDOMEN: Soft and nondistended. Normal bowel sounds without palpable mass. EXTREMITIES: Without edema. DIAGNOSTIC DATA: CT scan of his abdomen revealed a normal-appearing liver without any sign of biliary disease nor gallstones. Pancreas and spleen were unremarkable. There is no obvious GI pathology. Chest x-ray was unremarkable. White blood cell count 3.9, hemoglobin 11.8, and platelets 143,000. PT 15.9 with INR of 1.4 this afternoon. Normal chemistries. BUN 8 and creatinine 0.9. His initial total bilirubin is 1.2 and today is 1.6 with a direct bilirubin of 1.1. His AST was 862 yesterday and today is 1260. ALT yesterday was 771 and today is 1121. Alkaline phosphatase is normal. Albumin 3.1. Lipase 15. Toxicology revealed nondetectable acetaminophen and salicylates. The urine tox screen is positive for opiates, fentanyl, and cocaine. Alcohol level was nondetectable. Hepatitis A, B, and C serologies are pending. Hepatitis C viral load was nondetectable in August of 2019. IMPRESSION: Given the patient's clinical history, this acute hepatitis is most likely related to his recent use of nasal street drugs with multiple toxic substances. I do not think this is related to a viral hepatitis, although certainly with his recent use of street drugs, this could also be reflective of an acute hepatitis C infection. He does not show any particular evidence of liver failure with a just minimally elevated PT with INR and total bilirubin thus far. His CT scan is non-revealing. At this point I would continue supportive care. I would continue to follow his LFTs and PT with INR. Avoid all hepatotoxins. I would agree with checking his hepatitis serology, although his hepatitis C antibody will come back positive as it has in the past. I did order a hepatitis C viral load to see if there is any sign of acute hepatitis C infection. I shall schedule him for a doppler ultrsound of the abdomen to rule out portal vein thrombosis as well. I did review with the patient obviously the need to remain abstinent from all drugs as well as alcohol in the future. I do suspect his appetite and other constitutional symptoms will improve as the hepatitis resolves and the patient hopefully remains off further drug use. Certainly if he shows signs of liver failure while here in the hospital we would have to address that and consider transfer to a tertiary center with transplant capabilities, if they would even consider that in regard to his history of active substance abuse. This has been discussed with the patient. Thank you for the consultation. MD MILLI Otto/LG / [id number] ROMEO
[2021-08-29 06:12] LABS: Hematocrit 41.8 % (42.0-52.0); Hemoglobin 13.5 g/dl (14.0-18.0); Mean Corpuscular HGB Conc 32.3 g/dl (31.0-36.0); Mean Corpuscular Hemoglobin 27.1 pg (27.0-33.0); Mean Corpuscular Volume 83.9 fL (80.0-98.0); Mean Platelet Volume 11.7 fL (9.4-12.4); Platelet Count 129 X10*3/uL (160-400); Red Blood Count 4.98 X10*6/uL (4.60-5.80); Red Cell Distribution Width 13.7 % (11.0-16.0)
[2021-08-29 06:28] LABS: Alanine Aminotransferase 2305 U/L (0-40); Albumin Level 3.1 g/dL (3.5-5.0); Alkaline Phosphatase 119 U/L (39-117); Anion Gap 11 (12-20); Aspartate Amino Transferase 2883 U/L (5-37); Bilirubin Direct 1.8 mg/dL (0.0-0.5); Bilirubin Total 2.7 mg/dL (0.0-1.0); Blood Urea Nitrogen 7 mg/dL (9-16); Calcium 8.2 mg/dL (8.4-10.2); Carbon Dioxide 28 mmol/L (22-29); Chloride 102 mmol/L (96-108); Creatinine Clr Calc Pharmacy 92.6; Estimated Glomerular Filt Rate > 60; Glucose Random 93 mg/dL (60-115); INTERNATIONAL NORM RATIO 1.4 (0.9-1.1); Potassium 4.7 mmol/L (3.3-5.1); Prothrombin Time 15.7 SEC (9.9-13.0); Sodium 136 mmol/L (135-145); Total Protein 5.9 g/dL (6.5-8.0)
[2021-08-29] MEDS: Doxycycline Hyclate 100 MG in 0.9 % Sodium Chloride 250 ML 166.67 MG IV ×2 (06:43→18:24)
[2021-08-29 07:33] VITALS: BP 115/61; PULSE 64; RESP 18; TEMP 36.6; O2SAT 94
[2021-08-29] MEDS: Enoxaparin Sodium 40 MG/0.4 ML SYRINGE SUBCUT (07:48)
[2021-08-29] MEDS: Dextrose 5 % and 0.9 % NaCl 1,000 ML 100 ML IVCONT (09:51)
[2021-08-29 10:10] VITALS: BMI 23.6
[2021-08-29] MEDS: methADONE HCl 20 MG/2 ML ORAL.CONC 80 MG PO (10:13)
[2021-08-29 10:58] VITALS: BP 116/62; PULSE 66; RESP 16; TEMP 37.1; O2SAT 93
[2021-08-29] MEDS: Phytonadione (Vit K1) 5 MG in 0.9 % Sodium Chloride 50 ML 50.5 MG IV (11:34)
--- NOTE | 2021-08-29 13:17 | P.PNIM_ITS ---
Subjective Subjective Date of Service: 08/29/21 Interval History: acute hepatitis -drug related vs hepatitis c. Review of Systems Patient has mild nonspecific generalized pain, has some nausea ,no fevers Physical Exam Vital Signs: Vital Signs: Last Vital Signs Temp 98.8 F 08/29/21 10:58 Pulse 66 08/29/21 10:58 Resp 16 08/29/21 10:58 BP 116/62 08/29/21 10:58 Pulse Ox 93 08/29/21 10:58 BMI result Body Mass Index 23.6 Appearance: Alert.? Oriented X3.? not in distress.? Eyes: Pupils equal, round and reactive to light.? Sclera anicteric.? ENT: Pharynx normal.? Moist mucous membranes. cvs: rrr, [id number] . res: clear to auscultation ,no rhonchii or wheezing abd: no rebound or guarding ,nt, bs present. ext pulses present , no cyanosis . neuro: axo3 , nonfocal. Objective Data Active Medications Docusate Sodium (Docusate Sodium 100 Mg Capsule) 100 mg PO DAILY PRN PRN Reason: Constipation Enoxaparin Sodium (Enoxaparin Sodium 40 Mg/0.4 Ml Syringe) 40 mg SUBCUT Q24H [facility] Last Admin: 08/29/21 07:48 Dose: 40 mg Documented by: CRISTO Piperacillin Sod/Tazobactam (Sod 3.375 gm/ Sodium Chloride) 50 mls @ 100 mls/hr IV Q6H [facility] Last Infusion: 08/29/21 06:44 Dose: 0 mls/hr Documented by: SANGEETA Doxycycline Hyclate 100 mg/ (Sodium Chloride) 250 mls @ 166.67 mls/hr IV Q12H [facility] Last Infusion: 08/29/21 08:31 Dose: 166.67 mls/hr Documented by: CRISTO Dextrose/Sodium Chloride (D5ns) 1,000 mls @ 100 mls/hr IVCONT .Q10H [facility] Last Admin: 08/29/21 09:51 Dose: 100 mls/hr Documented by: CRISTO Methadone HCl (Methadone Hcl 20 Mg/2 Ml Oral.Conc) 80 mg PO DAILY [facility] Last Admin: 08/29/21 10:13 Dose: 80 mg Documented by: CRISTO Morphine Sulfate (Morphine Sulfate 4 Mg/Ml Cartridge) 4 mg IVPUSH Q4H PRN; Protocol PRN Reason: Pain, Severe (Pain Scale 7-10) Last Admin: 08/29/21 06:07 Dose: 4 mg Documented by: SANGEETA Nicotine Polacrilex (Nicotine Polacrilex Lozenge 4 Mg Lozenge) 4 mg BUCCAL Q2H PRN PRN Reason: Nicotine Cravings Ondansetron HCl (Ondansetron Hcl 4 Mg/2 Ml Vial) 4 mg IVPUSH Q8H PRN PRN Reason: Nausea and Vomiting Last Admin: 08/28/21 03:21 Dose: 4 mg Documented by: MARIANELA Pharmacy Consult (Consult Rx Perform Med Rec) 1 each MISCELLANE ONCE PRN PRN Reason: Consult order Pharmacy Consult (Consult Rx Perform Med Rec) 1 each MISCELLANE ONCE PRN PRN Reason: Consult order Polyethylene Glycol (Polyethylene Glycol 3350 17 Gm Powd.Pack) 17 gm PO BID [facility] Last Admin: 08/29/21 07:56 Dose: Not Given Documented by: CRISTO Non-Admin Reason: Patient Refused Sodium Chloride (0.9 % Sodium Chloride Flush 3 Ml Syringe) 3 ml IVFLUSH QSHIFT [facility] Last Admin: 08/29/21 09:51 Dose: 3 ml Documented by: CRISTO Labs CBC & Chem 7: 08/29/21 05:39 08/29/21 05:39 Labs: Laboratory Results - last 24 hr 08/28/21 08/29/21 08/29/21 15:42 05:39 05:39 MCV 83.9 MCH 27.1 MCHC 32.3 RDW 13.7 Plt Count 129 L MPV 11.7 Absolute Nucleated RBC 0.000 Nucleated RBC % (auto) 0.0 PT 15.9 H INR 1.4 H Anion Gap 11 L Estim Creat Clear Calc 92.6 Estimated GFR > 60 Random Glucose 93 Calcium 8.2 L Total Bilirubin 2.7 H Direct Bilirubin 1.8 H AST 2883 H ALT 2305 H Alkaline Phosphatase 119 H Total Protein 5.9 L Albumin 3.1 L 08/29/21 05:39 MCV MCH MCHC RDW Plt Count MPV Absolute Nucleated RBC Nucleated RBC % (auto) PT 15.7 H INR 1.4 H Anion Gap Estim Creat Clear Calc Estimated GFR Random Glucose Calcium Total Bilirubin Direct Bilirubin AST ALT Alkaline Phosphatase Total Protein Albumin Microbiology Microbiology Results: Microbiology 08/28/21 06:15 Blood Culture - Preliminary Blood - Venous No growth after 24 hours. 08/28/21 06:15 Blood Culture - Preliminary Blood - Venous No growth after 24 hours. Assessment and Plan (1) Suicidal ideation: Status: Acute (2) Acute hepatitis: Status: Acute Plan 56-year-old male with past medical history positive? for polysubstance abuse, hepatitis-C,depression anxiety, presents to the hospital with suicidal ideation found to have acute hepatitis, constipation and generalized pain. 1.acute hepatitis: worsening ?? possibly induced by cocaine abuse , with baseline history of hepatitis C ?? patient denies abdominal pain, has mild nausea able to eat ?? LFTs trending up, salicylate and Tylenol level negative ?? continue supportive care with IV fluids avoid hepatotoxins, follow hepatitis panel and LFTs ?? d/w GI input: inr similar to yesterday, lft's trending up-possibly induced by cocaine abuse , with baseline history of hepatitis C, added abd US. added NAC -just concern of worsening liver functions/so far inr similar to yesterday (added vitamin k also) moniter liver functions , pt/inr d/w U mass : transfer line and Gi: Currently patient is less likely liver failure/also due to drug use less likely be transplant candiadate currently. above is d/w [facility] in detail . continue gentle hydration 2. fever- no evidence of sepsis no recurrent fevers workup including lactic acid, CT abdomen showed no acute abnormalities, showed nonobstructing 2 mm ca lculus right lower renal pole, UA and chest x-ray unremarkable follow. blood culture prelim @24hr neg, cxr , ua , abd ct seems fine, no new fevers patient is on doxy/zosyn 3. suicidal ideation - sitter at bedside/ obtain N consult when medically stable - psych consulted 4. poly substance abuse ?? noted to have positive cocaine, fentanyl and opiates, history of chronic abuse, obtain care team consult, ??started on methdone 5.constipation resolved likely due to narcotics,cont.stool softners. 6. mood disorder? noted to be on Seroquel 200 mg twice daily but patient has not filled? since June ,hold off seroquel for now DVT prophylaxis Lovenox ?patient will need inpatient hospitalization due to worsening LFTs and suicidal ideation Quality Stroke Does the patient have a stroke diagnosis?: No VTE Prior VTE?: No VTE Risk Level:: Medical - moderate - high VTE Device Contraindication: Treatment Not Indicated VTE Drug Contraindication: N/A - Med Ordered
[2021-08-29 15:31] VITALS: BP 127/75; PULSE 86; RESP 18; TEMP 37.7; O2SAT 100
[2021-08-29 18:27] VITALS: BP 134/75; PULSE 68; RESP 20
[2021-08-29 19:04] VITALS: BP 140/84; PULSE 81; RESP 18; TEMP 37.6; O2SAT 96
[2021-08-29] MEDS: Dextrose 5 % and 0.9 % NaCl 1,000 ML 60 ML IVCONT (19:58)
[2021-08-29] MEDS: Zolpidem Tartrate 5 MG TABLET PO (20:35)
[2021-08-30] VITALS (7 sets, daily range): BP systolic 98–128; BP diastolic 56–70; PULSE 56–67; RESP 16–18; TEMP 36.3–37.3; O2SAT 94–100
--- NOTE | 2021-08-30 | ECG_ITS ---
Test Reason : cp Blood Pressure : / mmHG Vent. Rate : 056 BPM Atrial Rate : 056 BPM P-R Int : 158 ms QRS Dur : 094 ms QT Int : 448 ms P-R-T Axes : 102 111 116 degrees QTc Int : 432 ms Suspect limb lead reversal, interpretation assumes no reversal Sinus bradycardia Left posterior fascicular block Nonspecific T wave abnormality Abnormal ECG When compared with ECG of 23-MAR-2021 14:07, Left posterior fascicular block is now Present Referred By: Sandee Wray Electronically Signed By:MADELYN SU
[2021-08-30] MEDS: Piperacillin Sodium/Tazobactam 3.375 GM in 0.9 % Sodium Chloride 50 ML IV ×4 (00:18→18:31)
[2021-08-30] MEDS: Nicotine Polacrilex Lozenge 4 MG LOZENGE BUCCAL (00:27)
[2021-08-30] MEDS: Bismuth Subsalicylate 262 MG TABLET PO ×2 (00:27→08:38)
[2021-08-30] MEDS: 0.9 % Sodium Chloride Flush 3 ML SYRINGE IVFLUSH ×2 (00:45→08:19)
[2021-08-30] MEDS: Morphine Sulfate 4 MG/ML CARTRIDGE IVPUSH (03:27)
[2021-08-30] MEDS: Dextrose 5 % and 0.9 % NaCl 1,000 ML 60 ML IVCONT (03:35)
[2021-08-30 04:10] LABS: HBS Num1 > 1000.00 mIU/mL (0-7.99); HBc Num1 9.67 S/CO (0.00-0.79); HBsAGNum1 0.24 S/CO (0.00-0.99); Hepatitis B Surface Antigen Negative (Negative); ~Hepatitis B Surface Antibody REACTIVE (Nonreactive)
[2021-08-30 04:19] LABS: ~Hepatitis C Antibody Reactive (Nonreactive)
[2021-08-30] MEDS: Doxycycline Hyclate 100 MG in 0.9 % Sodium Chloride 250 ML 166.67 MG IV ×2 (05:07→19:18)
[2021-08-30 05:18] LABS: HBc Num2 9.44 S/CO; HBc Num3 9.34 S/CO; Hepatitis B Core Antibody Reactive (Nonreactive)
[2021-08-30 06:01] LABS: Basophils Percent Auto 0.6 % (0-2); Eosinophils Percent Auto 0.6 % (0-4); Hematocrit 36.2 % (42.0-52.0); Hemoglobin 12.1 g/dl (14.0-18.0); Imm Gran Abs Auto 0.01 X10*3/uL (0.00-0.03); Imm Gran Pct Auto 0.2 % (0.0-0.4); Lymphocytes Absolute Auto 2.1 X10*3/uL (1.2-4.9); Lymphocytes Percent Auto 41.4 % (20-40); MANUAL DIFF FLAG SCAN; Mean Corpuscular HGB Conc 33.4 g/dl (31.0-36.0); Mean Corpuscular Hemoglobin 27.3 pg (27.0-33.0); Mean Corpuscular Volume 81.7 fL (80.0-98.0); Mean Platelet Volume 11.8 fL (9.4-12.4); Monocytes Absolute Auto 0.6 X10*3/uL (0.1-1.2); Monocytes Percent Auto 12.2 % (2-11); Neutrophils Absolute Auto 2.3 x10*3/uL (2.0-8.3); Platelet Count 144 X10*3/uL (160-400); Red Blood Count 4.43 X10*6/uL (4.60-5.80); Red Cell Distribution Width 13.5 % (11.0-16.0); SCAN SMEAR FLAG 1; White Blood Count 5.2 X10*3/uL (4.8-10.8)
[2021-08-30 06:11] LABS: INTERNATIONAL NORM RATIO 1.5 (0.9-1.1); Prothrombin Time 17.3 SEC (9.9-13.0)
[2021-08-30 06:24] LABS: Alanine Aminotransferase 2323 U/L (0-40); Albumin Level 2.8 g/dL (3.5-5.0); Alkaline Phosphatase 111 U/L (39-117); Anion Gap 12 (12-20); Aspartate Amino Transferase 2311 U/L (5-37); Bilirubin Direct 2.9 mg/dL (0.0-0.5); Bilirubin Total 3.7 mg/dL (0.0-1.0); Blood Urea Nitrogen 5 mg/dL (9-16); Calcium 7.7 mg/dL (8.4-10.2); Carbon Dioxide 23 mmol/L (22-29); Chloride 105 mmol/L (96-108); Creatinine Clr Calc Pharmacy 107.3; Estimated Glomerular Filt Rate > 60; Glucose Fasting 107 mg/dL (60-99); Potassium 3.7 mmol/L (3.3-5.1); Sodium 136 mmol/L (135-145); Total Protein 5.2 g/dL (6.5-8.0)
[2021-08-30 06:25] LABS: SLIDE REVIEW VERIFIED
[2021-08-30] MEDS: ondansetron HCL 4 MG/2 ML VIAL IVPUSH (06:42)
[2021-08-30 06:44] LABS: Ammonia 66 umol/L (13-55)
[2021-08-30] MEDS: methADONE HCl 20 MG/2 ML ORAL.CONC 80 MG PO (08:19)
[2021-08-30] MEDS: Enoxaparin Sodium 40 MG/0.4 ML SYRINGE SUBCUT (08:19)
--- NOTE | 2021-08-30 11:42 | MHC.CLN ---
NUTRITION PATIENT ASKED GSR FOR ENSURE. DIET=REGULAR. ADDING ENSURE TID TO PROVIDE ADDITIONAL 1050 KCAL, 60 G PROTEIN. SUSPECT POOR PO PRIOR TO ADMISSION DUE TO SUBSTANCE ABUSE.
--- NOTE | 2021-08-30 13:16 | W.PM.IDCN ---
History of Present Illness Data of Consult Service Date: 08/30/21 Requesting physician: Tam Mack Primary Care Provider: DO IRENE Live Reason for consult: hepatitis He presents after ingestion drug. He was found to have elevated LFTs. He has known Hepatitis C Review of Systems Review of Systems: Yes all other systems are reviewed and are negative PMFSH Past Medical History Medical History Arthritis Chronic venous insufficiency History of hepatitis C Opiate dependence Panic disorder Polysubstance abuse Tobacco dependence Varicose veins of both lower extremities Family History Family History Maternal Aunt Cardiac disorder Maternal Grandmother Cardiac disorder Mother Diabetes Hypertension Family history: reviewed and not pertinent Surgical History Surgical History H/O removal of cyst Social History Social History Household Members: Other Household Members Other:: homeless Housing: Homeless Do you presently have visiting nurse or other home services: No Alcohol intake: former Patient Tobacco Use Status: Current everyday Tobacco user Tobacco use type: Cigarette Cigarette Packs Per Day: 0 Cigarettes Per Day: 3 Years Smoked: 10 e-Cigarette/Vaping Use: Never Used Second Hand Smoke Exposure: No Substance Use Type: Heroin service: No Current occupational status: disabled Sexual orientation: Did not discuss Meds Allergies Allergy/AdvReac Type Severity Reaction Status Date / Time vancomycin [Vancomycin] Allergy Mild HIVES Verified 08/27/21 10:01 Active Medications: Current Medications Bismuth Subsalicylate (Bismuth Subsalicylate 262 Mg Tablet) 262 mg PO QID PRN PRN Reason: heartburn Last Admin: 08/30/21 08:38 Dose: 262 mg Documented by: Docusate Sodium (Docusate Sodium 100 Mg Capsule) 100 mg PO DAILY PRN PRN Reason: Constipation Enoxaparin Sodium (Enoxaparin Sodium 40 Mg/0.4 Ml Syringe) 40 mg SUBCUT Q24H [facility] Last Admin: 08/30/21 08:19 Dose: 40 mg Documented by: Piperacillin Sod/Tazobactam (Sod 3.375 gm/ Sodium Chloride) 50 mls @ 100 mls/hr IV Q6H [facility] Last Infusion: 08/30/21 12:33 Dose: Infused Documented by: Doxycycline Hyclate 100 mg/ (Sodium Chloride) 250 mls @ 166.67 mls/hr IV Q12H [facility] Last Infusion: 08/30/21 06:50 Dose: Infused Documented by: Dextrose/Sodium Chloride (D5ns) 1,000 mls @ 60 mls/hr IVCONT .[id number] [facility] Last Admin: 08/30/21 03:35 Dose: 60 mls/hr Documented by: Acetylcysteine 6,864 mg/ (Dextrose) 1,034.32 mls @ 64.645 mls/hr IV .Q16H [facility] Last Admin: 08/30/21 11:29 Dose: 64.65 mls/hr Documented by: Methadone HCl (Methadone Hcl 20 Mg/2 Ml Oral.Conc) 80 mg PO DAILY [facility] Last Admin: 08/30/21 08:19 Dose: 80 mg Documented by: Morphine Sulfate (Morphine Sulfate 4 Mg/Ml Cartridge) 4 mg IVPUSH Q4H PRN; Protocol PRN Reason: Pain, Severe (Pain Scale 7-10) Last Admin: 08/30/21 03:27 Dose: 4 mg Documented by: Nicotine Polacrilex (Nicotine Polacrilex Lozenge 4 Mg Lozenge) 4 mg BUCCAL Q2H PRN PRN Reason: Nicotine Cravings Last Admin: 08/30/21 00:27 Dose: 4 mg Documented by: Ondansetron HCl (Ondansetron Hcl 4 Mg/2 Ml Vial) 4 mg IVPUSH Q8H PRN PRN Reason: Nausea and Vomiting Last Admin: 08/30/21 06:42 Dose: 4 mg Documented by: Pharmacy Consult (Consult Rx Perform Med Rec) 1 each MISCELLANE ONCE PRN PRN Reason: Consult order Pharmacy Consult (Consult Rx Perform Med Rec) 1 each MISCELLANE ONCE PRN PRN Reason: Consult order Polyethylene Glycol (Polyethylene Glycol 3350 17 Gm Powd.Pack) 17 gm PO BID [facility] Last Admin: 08/30/21 08:20 Dose: Not Given Documented by: Sodium Chloride (0.9 % Sodium Chloride Flush 3 Ml Syringe) 3 ml IVFLUSH QSHIFT [facility] Last Admin: 08/30/21 08:19 Dose: 3 ml Documented by: Home Medications Medication Instructions Recorded Confirmed Last Taken Type methadone 10 mg/mL oral concentrate 79 mg PO DAILY 08/29/21 08/29/21 Unknown History Physical Exam Vital Signs: Vital Signs: Last Vital Signs Temp 97.4 F 08/30/21 11:19 Pulse 62 08/30/21 11:19 Resp 18 08/30/21 11:19 BP 128/70 08/30/21 11:19 Pulse Ox 98 08/30/21 11:19 BMI result Body Mass Index 23.6 Const: General: cooperative Eyes: General: appearance normal, both eyes and all related structures Pupils: Equal, round and reactive pupils present Resp: Effort & Inspection: normal respiratory effort Cardio: Rate: regular rate Rhythm: regular rhythm GI: Palpation (GI): Soft to palpation and nontender Skin: Other: sallow,icteric Neuro: Cranial nerves: Yes Equal, round and reactive pupils present Results Labs CBC & Chem 7: 09/01/21 08:48 09/02/21 05:32 Labs: Short CBC 08/30/21 Range/Units 05:29 WBC 5.2 (4.8-10.8) X10*3/uL Hgb 12.1 L (14.0-18.0) g/dl Hct 36.2 L (42.0-52.0) % Plt Count 144 L (160-400) X10*3/uL BMP 08/30/21 05:29 Sodium 136 Potassium 3.7 D Chloride 105 Carbon Dioxide 23 BUN 5 L Creatinine 0.71 Calcium 7.7 L D Liver Function 08/30/21 Range/Units 05:29 Total Bilirubin 3.7 H (0.0-1.0) mg/dL Direct Bilirubin 2.9 H (0.0-0.5) mg/dL AST 2311 H (5-37) U/L ALT 2323 H (0-40) U/L Alkaline Phosphatase 111 (39-117) U/L Albumin 2.8 L (3.5-5.0) g/dL Microbiology Microbiology Results: Microbiology 08/28/21 06:15 Blood - Venous Blood Culture - Preliminary No growth after 48 hours. 08/28/21 06:15 Blood - Venous Blood Culture - Preliminary No growth after 48 hours. Assessment and Plan (1) Polysubstance abuse: Status: Acute (2) Acute hepatitis: Status: Resolved This is likely due to drug ingestion,denies Tylenol He could have Hepatitis B flare. HIV less likely. (3) Cocaine use disorder, moderate, dependence: Status: Acute (4) Substance induced mood disorder: Status: Acute Plan Check Hepatitis B viral load and Hepatitis D Check HIV Treat as doing/poison control Liver center if LFTs continue to rise.
--- NOTE | 2021-08-30 13:25 | P.PNIM_ITS ---
Subjective Subjective Date of Service: 08/30/21 Interval History: complaining of being restless, persistent mild nausea decreased by mouth intake requesting for Ensure, also complaining of dull abdominal pain no diarrhea, denies fever chills no other acute issues overnight. Review of Systems Review of Systems: Yes all other systems are reviewed and are negative Physical Exam Vital Signs: Vital Signs: Last Vital Signs Temp 97.4 F 08/30/21 11:19 Pulse 62 08/30/21 11:19 Resp 18 08/30/21 11:19 BP 128/70 08/30/21 11:19 Pulse Ox 98 08/30/21 11:19 BMI result Body Mass Index 23.6 Const: Other: General: awake,Alert X3.? not in distress.? Eyes: Pupils equal, round and reactive to light.? Sclera anicteric.? neck no JVD cvs: rrr, [id number] . res: clear to auscultation ,no rhonchii or wheezing abd: soft mild diffuse tenderness, bowel sounds audible, no guarding, no rigidity. ext pulses present , no edema . neuro: axo3 , nonfocal. psych appropriate affect, restless Objective Data Active Medications Bismuth Subsalicylate (Bismuth Subsalicylate 262 Mg Tablet) 262 mg PO QID PRN PRN Reason: heartburn Last Admin: 08/30/21 08:38 Dose: 262 mg Documented by: MURRAY Docusate Sodium (Docusate Sodium 100 Mg Capsule) 100 mg PO DAILY PRN PRN Reason: Constipation Enoxaparin Sodium (Enoxaparin Sodium 40 Mg/0.4 Ml Syringe) 40 mg SUBCUT Q24H [facility] Last Admin: 08/30/21 08:19 Dose: 40 mg Documented by: MURRAY Piperacillin Sod/Tazobactam (Sod 3.375 gm/ Sodium Chloride) 50 mls @ 100 mls/hr IV Q6H [facility] Last Infusion: 08/30/21 12:33 Dose: 0 mls/hr Documented by: MURRAY Doxycycline Hyclate 100 mg/ (Sodium Chloride) 250 mls @ 166.67 mls/hr IV Q12H [facility] Last Infusion: 08/30/21 06:50 Dose: 0 mls/hr Documented by: ALISSON Dextrose/Sodium Chloride (D5ns) 1,000 mls @ 60 mls/hr IVCONT .[id number] [facility] Last Admin: 08/30/21 03:35 Dose: 60 mls/hr Documented by: ALISSON Acetylcysteine 6,864 mg/ (Dextrose) 1,034.32 mls @ 64.645 mls/hr IV .Q16H [facility] Last Admin: 08/30/21 11:29 Dose: 64.65 mls/hr Documented by: MURRAY Methadone HCl (Methadone Hcl 20 Mg/2 Ml Oral.Conc) 80 mg PO DAILY [facility] Last Admin: 08/30/21 08:19 Dose: 80 mg Documented by: MURRAY Morphine Sulfate (Morphine Sulfate 4 Mg/Ml Cartridge) 4 mg IVPUSH Q4H PRN; Protocol PRN Reason: Pain, Severe (Pain Scale 7-10) Last Admin: 08/30/21 03:27 Dose: 4 mg Documented by: ALISSON Nicotine Polacrilex (Nicotine Polacrilex Lozenge 4 Mg Lozenge) 4 mg BUCCAL Q2H PRN PRN Reason: Nicotine Cravings Last Admin: 08/30/21 00:27 Dose: 4 mg Documented by: ALISSON Ondansetron HCl (Ondansetron Hcl 4 Mg/2 Ml Vial) 4 mg IVPUSH Q8H PRN PRN Reason: Nausea and Vomiting Last Admin: 08/30/21 06:42 Dose: 4 mg Documented by: ALISSON Pharmacy Consult (Consult Rx Perform Med Rec) 1 each MISCELLANE ONCE PRN PRN Reason: Consult order Pharmacy Consult (Consult Rx Perform Med Rec) 1 each MISCELLANE ONCE PRN PRN Reason: Consult order Polyethylene Glycol (Polyethylene Glycol 3350 17 Gm Powd.Pack) 17 gm PO BID [facility] Last Admin: 08/30/21 08:20 Dose: Not Given Documented by: MURRAY Non-Admin Reason: Patient Refused Sodium Chloride (0.9 % Sodium Chloride Flush 3 Ml Syringe) 3 ml IVFLUSH QSHIFT [facility] Last Admin: 08/30/21 08:19 Dose: 3 ml Documented by: MURRAY Labs CBC & Chem 7: 08/30/21 05:29 08/30/21 05:29 Labs: Laboratory Results - last 24 hr 08/27/21 08/30/21 08/30/21 23:48 05:29 05:29 MCV 81.7 MCH 27.3 MCHC 33.4 RDW 13.5 Plt Count 144 L MPV 11.8 Immature Gran % (Auto) 0.2 Neut % (Auto) 45.0 Lymph % (Auto) 41.4 H [place] % (Auto) 12.2 H Eos % (Auto) 0.6 Baso % (Auto) 0.6 Lymph # (Auto) 2.1 [place] # (Auto) 0.6 Eos # (Auto) 0.0 Baso # (Auto) 0.0 Abs Immat Gran (auto) 0.01 Absolute Neuts (auto) 2.3 Absolute Nucleated RBC 0.000 Nucleated RBC % (auto) 0.0 Smear Tech's Comments VERIFIED PT 17.3 H INR 1.5 H Anion Gap Estim Creat Clear Calc Estimated GFR Fasting Glucose Calcium Total Bilirubin Direct Bilirubin AST ALT Alkaline Phosphatase Ammonia Total Protein Albumin Hep Bs Antigen Negative Hep Bs Antibody REACTIVE Hep B Core Total Ab Reactive Hep B Core IgM Ab Cancelled Hepatitis C Ab (EIA) Reactive H 08/30/21 08/30/21 05:29 05:29 MCV MCH MCHC RDW Plt Count MPV Immature Gran % (Auto) Neut % (Auto) Lymph % (Auto) [place] % (Auto) Eos % (Auto) Baso % (Auto) Lymph # (Auto) [place] # (Auto) Eos # (Auto) Baso # (Auto) Abs Immat Gran (auto) Absolute Neuts (auto) Absolute Nucleated RBC Nucleated RBC % (auto) Smear Tech's Comments PT INR Anion Gap 12 Estim Creat Clear Calc 107.3 Estimated GFR > 60 Fasting Glucose 107 H Calcium 7.7 L D Total Bilirubin 3.7 H Direct Bilirubin 2.9 H AST 2311 H ALT 2323 H Alkaline Phosphatase 111 Ammonia 66 H Total Protein 5.2 L Albumin 2.8 L Hep Bs Antigen Hep Bs Antibody Hep B Core Total Ab Hep B Core IgM Ab Hepatitis C Ab (EIA) Microbiology Microbiology Results: Microbiology 08/28/21 06:15 Blood Culture - Preliminary Blood - Venous No growth after 48 hours. 08/28/21 06:15 Blood Culture - Preliminary Blood - Venous No growth after 48 hours. Assessment and Plan (1) Suicidal ideation: Status: Acute (2) Acute hepatitis: Status: Acute Plan 56-year-old male with past medical history positive? for polysubstance abuse, hepatitis-C,depression anxiety, presents to the hospital with suicidal ideation found to have acute hepatitis, constipation and generalized pain. 1.acute hepatitis: ?? possibly induced by cocaine abuse , with baseline history of hepatitis C ?? LFTs remains elevated but stable, salicylate and Tylenol level negative ?? continue supportive care with IV fluids avoid hepatotoxins, ?? stable inr , abd US showed no abnormalities and no evidence of portal venous thrombosis. on acetylcysteine and IV fluid moniter liver functions , pt/inr stable, hepatitis C viral load pending, check HIV and hepatitis D as per [facility], due to drug use less likely to be transplant candidate will add Ensure t.i.d. 2. fever- no evidence of sepsis no recurrent fevers workup including lactic acid, CT abdomen showed no acute abnormalities, showed nonobstructing 2 mm calculus right lower renal pole, UA and chest x-ray unremarkable follow. blood culture neg, patient is on doxy/zosyn will discuss with ID and discontinue antibiotics since no evidence of infection with negative blood culturess. 3. suicidal ideation - sitter at bedside/ obtain BHN consult when medically stable - psych consulted 4. poly substance abuse with withdrawal symptoms ?? noted to have positive cocaine, fentanyl and opiates, history of chronic abuse, obtain care team consult, ?? continue on methdone, obtain Addiction team consult, add as needed hydroxyzine for withdrawal 5.constipation resolved likely due to narcotics,cont.stool softners. 6. mood disorder? noted to be on Seroquel 200 mg twice daily but patient has not filled? since June ,hold off seroquel for now, psych consult pending DVT prophylaxis Lovenox ?patient will need inpatient hospitalization due to worsening LFTs and suicidal ideation Quality Stroke Does the patient have a stroke diagnosis?: No VTE Prior VTE?: No VTE Risk Level:: Medical - moderate - high VTE Device Contraindication: Treatment Not Indicated VTE Drug Contraindication: N/A - Med Ordered
--- NOTE | 2021-08-30 14:55 | MHC.CM.PN ---
NURSE HOP STRAINER NOTE ELECTRONIC MEDICAL RECORD REVIEWED LONG WITH CASE DISCUSSED WITH STAFF NURSE AND HOSPITLAIT MET WITH PATIENT WITH [facility] , HE SAID HE DID NOT NEED ONE, , HE RPORTED THAT HE NO LONGER GO BACK TO WHERE HE WAS STAYING AND IS NOW HOMELESS , HE REPORTED OAST HISTORY OF DRUG ABUSE ANFD GOING TO [facility] THEN WAS USING AGSIN , AND FELT LIJ
--- NOTE | 2021-08-30 14:59 | MHC.CM.PN ---
NURSE SENIOR ENGINEERING TEAM LEADER NOTE ELECTRONIC MEDICAL RECORD REVIEWED PAM WITH CASE DISUCSSED WITH STAFF NURSE AND HOSPITLAIST . PATIENT DECLINED [facility] INTERTPER[facility] , HE REPORTED THAT HE CAN NOT RETURN BACK TO WHERE HE WAS STAYING AND IS [place] HOMELESS, HE HAS PAST HISTORY OF OP[IOD ABUISE AND WAIS GOING TO THE [facility] ON [address] [facility] , HE REPORTED USING AGIAN ABOUT TWO WEEKS AGO AND THEN AFTYER WATRDS BECOMES DEPRESSED , PER DOCUMENTATION CRISIS CONSULT CALLED PENDING THIS EVALUATION, ALSO CARE TEAM CONC CALLED AND WAITING FOR MEDICAL CLEARANCE FOR DISCHARGE BEFORE THEY WILL COME A S SEE PATIENT, PATIENT REPORTED HE FELT LIKE HE WAS WITHDRAWING , THIS WAS INFORMED TO THE HOSPITALSIT AND ADDICITON CONSULT TO ZULY MENDEZ WAS MADE BY HOSPITLAIST DISCHARGE PLAN - PENDING CRISIS CONS AND DISPOSITION CARE TEAM CONSULT PENDING EVALUATION AND [place] RECOMENDATION ADDICITON TEAM CONS - PER THEIR RECOMENDATIONS- PCP GREG HOWARD
--- NOTE | 2021-08-30 16:59 | HO.ADDICTCON ---
History of Present Illness Date of Service: 08/30/2021 Chief Complaint: acute hepatitis Reason for Consult: OUD--on methadone ? ongoing withdrawal Requesting physician: Tam Mack Sources of Information: patient interviewed and chart reviewed HPI Narrative: Patient is a 56 year old male with OUD currently medically admitted with acute hepatitis. He had originally presented the ED reporting suicidal ideation. Patient currently prescribed methadone 80 mg daily. He reports that he is treated be at [facility] in [place]. He states that he has been treated here for the last 5 years or so. Patient reports that he had been in recovery for some time, and for 2 weeks prior to admission he had been using fentanyl daily. He reports generalized malaise, poor appetite, difficulty sleeping, decreased energy, and occasional cravings for opioids. During interview patient did not appear to be restless, anxious, no yawning or diaphoresis noted. Patient denies any suicidal ideation at this time, reports that he ?gets like that? when he is actively using. He expresses interest in referrals to community-based substance use treatment programs. At this time it is unclear when patient will be medically cleared for discharge. Past Psychiatric History: Inpt: 2-3 in past OP: CHD Past trials: remeron, isabelleien Suicide attempt: denies Review of Systems Constitutional: Reports as per HPI Diagnostics Vital Signs (24Hr): Vital Signs - 24 hr 08/29/21 18:27 08/29/21 19:04 08/30/21 00:00 Temperature 99.7 F 99.1 F Pulse Rate 68 81 67 Respiratory Rate 20 18 18 Blood Pressure 134/75 140/84 H 124/59 L Pulse Oximetry 96 95 08/30/21 03:29 08/30/21 07:07 08/30/21 11:19 Temperature 99.0 F 97.8 F 97.4 F Pulse Rate 60 60 62 Respiratory Rate 18 18 18 Blood Pressure 110/70 111/59 L 128/70 Pulse Oximetry 97 94 98 08/30/21 15:30 Temperature 97.8 F Pulse Rate 56 Respiratory Rate 16 Blood Pressure 98/56 L Pulse Oximetry 94 BMI result Body Mass Index 23.6 Labs Results: 08/30/21 05:29 08/30/21 05:29 Labs: Laboratory Results - last 48 hr 08/27/21 08/29/21 08/29/21 23:48 05:39 05:39 WBC 4.0 L RBC 4.98 Hgb 13.5 L Hct 41.8 L MCV 83.9 MCH 27.1 MCHC 32.3 RDW 13.7 Plt Count 129 L MPV 11.7 Immature Gran % (Auto) Neut % (Auto) Lymph % (Auto) [place] % (Auto) Eos % (Auto) Baso % (Auto) Lymph # (Auto) [place] # (Auto) Eos # (Auto) Baso # (Auto) Abs Immat Gran (auto) Absolute Neuts (auto) Absolute Nucleated RBC 0.000 Nucleated RBC % (auto) 0.0 Smear Tech's Comments PT INR Sodium 136 Potassium 4.7 D Chloride 102 Carbon Dioxide 28 Anion Gap 11 L BUN 7 L Creatinine 0.79 Estim Creat Clear Calc 92.6 Estimated GFR > 60 Random Glucose 93 Fasting Glucose Calcium 8.2 L Total Bilirubin 2.7 H Direct Bilirubin 1.8 H AST 2883 H ALT 2305 H Alkaline Phosphatase 119 H Ammonia Total Protein 5.9 L Albumin 3.1 L Hep Bs Antigen Negative Hep Bs Antibody REACTIVE Hep B Core Total Ab Reactive Hep B Core IgM Ab Cancelled Hepatitis C Ab (EIA) Reactive H 08/29/21 08/30/21 08/30/21 05:39 05:29 05:29 WBC 5.2 RBC 4.43 L Hgb 12.1 L Hct 36.2 L MCV 81.7 MCH 27.3 MCHC 33.4 RDW 13.5 Plt Count 144 L MPV 11.8 Immature Gran % (Auto) 0.2 Neut % (Auto) 45.0 Lymph % (Auto) 41.4 H [place] % (Auto) 12.2 H Eos % (Auto) 0.6 Baso % (Auto) 0.6 Lymph # (Auto) 2.1 [place] # (Auto) 0.6 Eos # (Auto) 0.0 Baso # (Auto) 0.0 Abs Immat Gran (auto) 0.01 Absolute Neuts (auto) 2.3 Absolute Nucleated RBC 0.000 Nucleated RBC % (auto) 0.0 Smear Tech's Comments VERIFIED PT 15.7 H 17.3 H INR 1.4 H 1.5 H Sodium Potassium Chloride Carbon Dioxide Anion Gap BUN Creatinine Estim Creat Clear Calc Estimated GFR Random Glucose Fasting Glucose Calcium Total Bilirubin Direct Bilirubin AST ALT Alkaline Phosphatase Ammonia Total Protein Albumin Hep Bs Antigen Hep Bs Antibody Hep B Core Total Ab Hep B Core IgM Ab Hepatitis C Ab (EIA) 08/30/21 08/30/21 05:29 05:29 WBC RBC Hgb Hct MCV MCH MCHC RDW Plt Count MPV Immature Gran % (Auto) Neut % (Auto) Lymph % (Auto) [place] % (Auto) Eos % (Auto) Baso % (Auto) Lymph # (Auto) [place] # (Auto) Eos # (Auto) Baso # (Auto) Abs Immat Gran (auto) Absolute Neuts (auto) Absolute Nucleated RBC Nucleated RBC % (auto) Smear Tech's Comments PT INR Sodium 136 Potassium 3.7 D Chloride 105 Carbon Dioxide 23 Anion Gap 12 BUN 5 L Creatinine 0.71 Estim Creat Clear Calc 107.3 Estimated GFR > 60 Random Glucose Fasting Glucose 107 H Calcium 7.7 L D Total Bilirubin 3.7 H Direct Bilirubin 2.9 H AST 2311 H ALT 2323 H Alkaline Phosphatase 111 Ammonia 66 H Total Protein 5.2 L Albumin 2.8 L Hep Bs Antigen Hep Bs Antibody Hep B Core Total Ab Hep B Core IgM Ab Hepatitis C Ab (EIA) Imaging Radiology Impressions: ITS Impressions Abdomen/Pelvis CT 08/27/21 22:31 IMPRESSION: 1. No acute abnormalities in the abdomen and pelvis. 2. A nonobstructing 2 mm calculus in the right lower renal pole. Fleischner guidelines were followed. Chest X-Ray 08/28/21 05:34 IMPRESSION: No acute cardiopulmonary findings Abdomen Ultrasound 08/29/21 15:17 IMPRESSION: * No acute sonographic abnormalities in the examined abdomen. * No evidence of portal vein thrombosis. Doppler Study Ultrasound 08/29/21 15:17 IMPRESSION: * No acute sonographic abnormalities in the examined abdomen. * No evidence of portal vein thrombosis. Mental Status Exam Mental Status Exam Patient Appearance: Appropriate Level of Consciousness: Awake and Appropriate Patient Behavior: Appropriate Mood Description: Calm Affect Description: Appropriate Patient Cognition Impaired: No Judgement: Fair Medications Medications Current Medications Bismuth Subsalicylate (Bismuth Subsalicylate 262 Mg Tablet) 262 mg PO QID PRN PRN Reason: heartburn Last Admin: 08/30/21 08:38 Dose: 262 mg Documented by: Docusate Sodium (Docusate Sodium 100 Mg Capsule) 100 mg PO DAILY PRN PRN Reason: Constipation Enoxaparin Sodium (Enoxaparin Sodium 40 Mg/0.4 Ml Syringe) 40 mg SUBCUT Q24H [facility] Last Admin: 08/30/21 08:19 Dose: 40 mg Documented by: Hydroxyzine HCl (Hydroxyzine Hcl 25 Mg Tablet) 25 mg PO Q6H PRN PRN Reason: Anxiety Piperacillin Sod/Tazobactam (Sod 3.375 gm/ Sodium Chloride) 50 mls @ 100 mls/hr IV Q6H [facility] Last Infusion: 08/30/21 12:33 Dose: Infused Documented by: Doxycycline Hyclate 100 mg/ (Sodium Chloride) 250 mls @ 166.67 mls/hr IV Q12H [facility] Last Infusion: 08/30/21 06:50 Dose: Infused Documented by: Dextrose/Sodium Chloride (D5ns) 1,000 mls @ 100 mls/hr IVCONT .Q10H [facility] Last Admin: 08/30/21 03:35 Dose: 60 mls/hr Documented by: Acetylcysteine 6,864 mg/ (Dextrose) 1,034.32 mls @ 64.645 mls/hr IV .Q16H [facility] Last Admin: 08/30/21 11:29 Dose: 64.65 mls/hr Documented by: Methadone HCl (Methadone Hcl 20 Mg/2 Ml Oral.Conc) 80 mg PO DAILY [facility] Last Admin: 08/30/21 08:19 Dose: 80 mg Documented by: Morphine Sulfate (Morphine Sulfate 4 Mg/Ml Cartridge) 4 mg IVPUSH Q4H PRN; Protocol PRN Reason: Pain, Severe (Pain Scale 7-10) Last Admin: 08/30/21 03:27 Dose: 4 mg Documented by: Nicotine Polacrilex (Nicotine Polacrilex Lozenge 4 Mg Lozenge) 4 mg BUCCAL Q2H PRN PRN Reason: Nicotine Cravings Last Admin: 08/30/21 00:27 Dose: 4 mg Documented by: Ondansetron HCl (Ondansetron Hcl 4 Mg/2 Ml Vial) 4 mg IVPUSH Q8H PRN PRN Reason: Nausea and Vomiting Last Admin: 08/30/21 06:42 Dose: 4 mg Documented by: Pharmacy Consult (Consult Rx Perform Med Rec) 1 each MISCELLANE ONCE PRN PRN Reason: Consult order Pharmacy Consult (Consult Rx Perform Med Rec) 1 each MISCELLANE ONCE PRN PRN Reason: Consult order Polyethylene Glycol (Polyethylene Glycol 3350 17 Gm Powd.Pack) 17 gm PO BID [facility] Last Admin: 08/30/21 08:20 Dose: Not Given Documented by: Sodium Chloride (0.9 % Sodium Chloride Flush 3 Ml Syringe) 3 ml IVFLUSH QSHIFT [facility] Last Admin: 08/30/21 08:19 Dose: 3 ml Documented by: Allergies Allergies Allergy/AdvReac Type Severity Reaction Status Date / Time vancomycin [Vancomycin] Allergy Mild HIVES Verified 08/27/21 10:01 Assessment & Plan Assessment & Plan (1) Opioid use disorder, moderate, dependence: Status: Acute Code(s): F11.20 - Opioid dependence, uncomplicated Assessment and Plan: EKG to check QT If appropriate can increase methadone by 5 mg to address cravings an ongoing use Will follow-up once EKG completed I spent ___40___ minutes with the patient and/or on the patient floor today, greater than?50% of which was spent counseling/coordinating care. PMFSH Past Medical History Medical History Arthritis Chronic venous insufficiency History of hepatitis C Opiate dependence Panic disorder Polysubstance abuse Tobacco dependence Varicose veins of both lower extremities Family History Family History Maternal Aunt Cardiac disorder Maternal Grandmother Cardiac disorder Mother Diabetes Hypertension Family history: reviewed and not pertinent Surgical History Surgical History H/O removal of cyst Social History Social History Household Members: Other Household Members Other:: homeless Housing: Homeless Do you presently have visiting nurse or other home services: No Alcohol intake: former Patient Tobacco Use Status: Current everyday Tobacco user Tobacco use type: Cigarette Cigarette Packs Per Day: 0 Cigarettes Per Day: 3 Years Smoked: 10 e-Cigarette/Vaping Use: Never Used Second Hand Smoke Exposure: No Substance Use Type: Heroin service: No Current occupational status: disabled Sexual orientation: Did not discuss
[2021-08-30] MEDS: hydrOXYzine HCL 25 MG TABLET PO (19:18)
[2021-08-31] MEDS: Dextrose 5 % and 0.9 % NaCl 1,000 ML 100 ML IVCONT ×2 (00:37→13:59)
[2021-08-31] MEDS: Piperacillin Sodium/Tazobactam 3.375 GM in 0.9 % Sodium Chloride 50 ML IV ×2 (00:39→05:54)
[2021-08-31] MEDS: ondansetron HCL 4 MG/2 ML VIAL IVPUSH ×2 (02:16→20:24)
--- NOTE | 2021-08-31 03:02 | PC.NURSE ---
PATIENT RESTING IN BED, SITTER AT BEDSIDE, NO EARLIER COMPLAINTS, VSS, SUPERVISION AND MONITORED TO BR. 0200 PATIENT OOB TO BR TO URINATE AND CALLED TO BATHROOM BY SITTER/POWER TRANSFORMER INSPECTOR PT VOMITED MODERATE AMOUNT OF UNDIGESTED FOOD. PT ALERT, TALKING, ABLE TO WALK SAFELY BACK TO BED. ASSISTED WITH HYGIENE AND FRESSHENING UP. MEDICATED WITH IVP ZOFRAN AT 0215 FOR N/V WITH GOOD EFFECT, PT WILL SIP ON BEDSIDE PASCUAL PRASHANT AND BE MONITORED, HOSPITALIST UPDATED ON EPISODE. NOTED WAS FIRST DAY PT TRIED EATING SOLID FOODS AND FEELS HE OVER DID IT . EMESIS UNDIGESTED FOOD CONTENT.
[2021-08-31 03:30] VITALS: BP 104/55; PULSE 58; RESP 17; TEMP 36.4; O2SAT 94
[2021-08-31 04:12] LABS: HIV AB/AG Nonreactive (Nonreactive); HIV Num 1 0.13 S/CO (0.00-0.99)
[2021-08-31 06:14] LABS: INTERNATIONAL NORM RATIO 1.4 (0.9-1.1); Prothrombin Time 15.8 SEC (9.9-13.0)
[2021-08-31 06:22] LABS: Alanine Aminotransferase 1803 U/L (0-40); Albumin Level 2.7 g/dL (3.5-5.0); Alkaline Phosphatase 109 U/L (39-117); Anion Gap 9 (12-20); Aspartate Amino Transferase 1227 U/L (5-37); Bilirubin Direct 2.8 mg/dL (0.0-0.5); Bilirubin Total 3.4 mg/dL (0.0-1.0); Blood Urea Nitrogen 4 mg/dL (9-16); Calcium 7.7 mg/dL (8.4-10.2); Carbon Dioxide 27 mmol/L (22-29); Chloride 106 mmol/L (96-108); Creatinine Clr Calc Pharmacy 110.4; Estimated Glomerular Filt Rate > 60; Glucose Random 124 mg/dL (60-115); Potassium 3.6 mmol/L (3.3-5.1); Sodium 138 mmol/L (135-145)
[2021-08-31] MEDS: Doxycycline Hyclate 100 MG in 0.9 % Sodium Chloride 250 ML 166.67 MG IV (06:43)
[2021-08-31 07:34] VITALS: BP 117/59; PULSE 54; RESP 18; TEMP 36.6; O2SAT 99
[2021-08-31] MEDS: Enoxaparin Sodium 40 MG/0.4 ML SYRINGE SUBCUT (08:31)
[2021-08-31] MEDS: methADONE HCl 20 MG/2 ML ORAL.CONC 80 MG PO (08:31)
[2021-08-31] MEDS: Bismuth Subsalicylate 262 MG TABLET PO ×2 (08:38→20:24)
--- NOTE | 2021-08-31 11:15 | HO.PM.IMPN ---
Subjective Subjective Date of Service: 09/01/21 Interval History: complaining of bilateral lower extremity itching, had significant nausea and vomiting overnight after eating burger,, feeling better this morning abdominal pain and nausea improving, requesting for regular Ensure , denies fever chills no other acute issues overnight. Review of Systems Review of Systems: Yes all other systems are reviewed and are negative Physical Exam Vital Signs: Vital Signs: Last Vital Signs Temp 97.8 F 08/31/21 07:34 Pulse 54 08/31/21 07:34 Resp 18 08/31/21 07:34 BP 117/59 L 08/31/21 07:34 Pulse Ox 99 08/31/21 07:34 BMI result Body Mass Index 23.6 Const: Other: General:? awake,Al ert X3.? not in di stress.? Eyes: Pup ils equal, round a nd reactive to lig ht.? Sclera anicte rishabh.? neck no JVD cvs: rrr, [id number] d . res: clear to auscultation ,no r honchii or wheezin g abd:? soft, Nont lola, bowel sound s audible, no guar ding, no rigidity. ext pulses presen t , no edema . kristyn ro: axo3 , nonfoca l, no tremor. psyc h appropriate affe ct skin left lowe r extremity and mi ld right lower fin e rash Objective Data Active Medications Bismuth Subsalicylate (Bismuth Subsalicylate 262 Mg Tablet) 262 mg PO QID PRN PRN Reason: heartburn Last Admin: 08/31/21 08:38 Dose: 262 mg Documented by: PONCE Diphenhydramine HCl (Diphenhydramine Hcl 25 Mg Tablet) 25 mg PO Q6H PRN PRN Reason: Allergic Symptoms Docusate Sodium (Docusate Sodium 100 Mg Capsule) 100 mg PO DAILY PRN PRN Reason: Constipation Enoxaparin Sodium (Enoxaparin Sodium 40 Mg/0.4 Ml Syringe) 40 mg SUBCUT Q24H [facility] Last Admin: 08/31/21 08:31 Dose: 40 mg Documented by: PONCE Dextrose/Sodium Chloride (D5ns) 1,000 mls @ 100 mls/hr IVCONT .Q10H [facility] Last Infusion: 08/31/21 08:30 Dose: 100 mls/hr Documented by: PONCE Acetylcysteine 6,864 mg/ (Dextrose) 1,034.32 mls @ 64.645 mls/hr IV .Q16H [facility] Last Admin: 08/31/21 04:55 Dose: 64.65 mls/hr Documented by: SANGEETA Methadone HCl (Methadone Hcl 20 Mg/2 Ml Oral.Conc) 80 mg PO DAILY [facility] Last Admin: 08/31/21 08:31 Dose: 80 mg Documented by: PONCE Morphine Sulfate (Morphine Sulfate 4 Mg/Ml Cartridge) 4 mg IVPUSH Q4H PRN; Protocol PRN Reason: Pain, Severe (Pain Scale 7-10) Last Admin: 08/30/21 03:27 Dose: 4 mg Documented by: ALISSON Nicotine Polacrilex (Nicotine Polacrilex Lozenge 4 Mg Lozenge) 4 mg BUCCAL Q2H PRN PRN Reason: Nicotine Cravings Last Admin: 08/30/21 00:27 Dose: 4 mg Documented by: ALISSON Ondansetron HCl (Ondansetron Hcl 4 Mg/2 Ml Vial) 4 mg IVPUSH Q8H PRN PRN Reason: Nausea and Vomiting Last Admin: 08/31/21 02:16 Dose: 4 mg Documented by: SANGEETA Pharmacy Consult (Consult Rx Perform Med Rec) 1 each MISCELLANE ONCE PRN PRN Reason: Consult order Pharmacy Consult (Consult Rx Perform Med Rec) 1 each MISCELLANE ONCE PRN PRN Reason: Consult order Polyethylene Glycol (Polyethylene Glycol 3350 17 Gm Powd.Pack) 17 gm PO BID [facility] Last Admin: 08/31/21 08:33 Dose: Not Given Documented by: PONCE Non-Admin Reason: Patient Refused Sodium Chloride (0.9 % Sodium Chloride Flush 3 Ml Syringe) 3 ml IVFLUSH QSHIFT [facility] Last Admin: 08/31/21 08:41 Dose: Not Given Documented by: PONCE Non-Admin Reason: IV Running Labs CBC & Chem 7: 09/01/21 08:48 09/01/21 08:48 Labs: Laboratory Results - last 24 hr 08/30/21 08/30/21 08/31/21 15:14 15:14 05:30 PT INR Anion Gap 9 L Estim Creat Clear Calc 110.4 Estimated GFR > 60 Random Glucose 124 H Calcium 7.7 L Total Bilirubin 3.4 H Direct Bilirubin 2.8 H AST 1227 H ALT 1803 H Alkaline Phosphatase 109 Total Protein 5.0 L Albumin 2.7 L HIV 1&2 Ab/P24 Ag 4thGn Nonreactive Nonreactive 08/31/21 05:30 PT 15.8 H INR 1.4 H Anion Gap Estim Creat Clear Calc Estimated GFR Random Glucose Calcium Total Bilirubin Direct Bilirubin AST ALT Alkaline Phosphatase Total Protein Albumin HIV 1&2 Ab/P24 Ag 4thGn Microbiology Microbiology Results: Microbiology 08/28/21 06:15 Blood Culture - Preliminary Blood - Venous No growth after 48 hours. 08/28/21 06:15 Blood Culture - Preliminary Blood - Venous No growth after 48 hours. Assessment and Plan (1) Suicidal ideation: Status: Acute (2) Acute hepatitis: Status: Acute Plan 56-year-old male with past medical history positive? for polysubstance abuse, hepatitis-C,depression anxiety, presents to the hospital with suicidal ideation found to have acute hepatitis, constipation and generalized pain. 1.acute hepatitis: ?? possibly induced by cocaine abuse , with baseline history of hepatitis C ?? LFTs trending down, salicylate and Tylenol level negative ?? continue supportive care with IV fluids avoid hepatotoxins, ?? stable inr , abd US showed no abnormalities and no evidence of portal venous thrombosis. on acetylcysteine and IV fluid, will DC IV fluid moniter liver functions , pt/inr stable, hepatitis C viral load and hepatitis D pending, HIV nonreactive continue antiemetics encourage by mouth,continue Ensure t.i.d. 2. fever- no evidence of sepsis no recurrent fevers workup including lactic acid, CT abdomen showed no acute abnormalities, showed nonobstructing 2 mm calculus right lower renal pole, UA and chest x-ray unremarkable follow. blood culture neg, patient is on doxy/zosyn will discontinue antibiotics since no evidence of infection with negative blood culturess. 3. suicidal ideation - case discussed with Addiction Team patient with no suicidal ideation will DC sitter - psych consulted 4. poly substance abuse with withdrawal symptoms ?? noted to have positive cocaine, fentanyl and opiates, history of chronic abuse, obtain care team consult, ?? continue on methdone, being followed by Addiction Team 5.constipation resolved likely due to narcotics,cont.stool softners. 6. mood disorder? noted to be on Seroquel 200 mg twice daily but patient has not filled? since June ,hold off seroquel for now, psych consult pending 7. lower extremity rash with itching not relieved with hydroxyzine will place on Benadryl, question allergic rash will follow DVT prophylaxis Lovenox ?patient will need inpatient hospitalization due to elevated LFTs, acute hepatitis, persistent nausea decreased by mouth intake Quality Stroke Does the patient have a stroke diagnosis?: No VTE Prior VTE?: No VTE Risk Level:: Medical - moderate - high VTE Device Contraindication: Treatment Not Indicated VTE Drug Contraindication: N/A - Med Ordered
[2021-08-31 11:22] VITALS: BP 105/55; PULSE 55; RESP 16; TEMP 36.6; O2SAT 98
[2021-08-31] MEDS: Nicotine Polacrilex Lozenge 4 MG LOZENGE BUCCAL (13:58)
[2021-08-31] MEDS: diphenhydrAMINE HCL 25 MG TABLET PO ×2 (14:15→21:48)
[2021-08-31 15:31] VITALS: BP 111/59; PULSE 54; RESP 18; TEMP 36.8; O2SAT 95
--- NOTE | 2021-08-31 16:19 | HO.ADDICTPRO ---
Subjective Subjective Date of Service: 08/31/21 Reason For Visit: acute hepatitis Interim History: Patient seen in follow up. EKG reviewed Patient reporting he feels a little bit better . Feels okay with current methadone dose Discussed plans following discharge. Patient expressing interest in [facility] admission. Denies any suicidal ideation. Expressing motivation for treatment. Review of Systems Acute medical concerns: Yes Medical Review of Systems: unchanged Mental Status Exam Mental Status Exam Patient Appearance: Appropriate Level of Consciousness: Awake and Appropriate Patient Behavior: Appropriate Mood Description: Calm Affect Description: Appropriate Patient Cognition Impaired: No Judgement: Fair Diagnostics Vital Signs (24Hr): Vital Signs - 24 hr 08/30/21 19:34 08/30/21 23:54 08/31/21 03:30 Temperature 98.1 F 97.8 F 97.6 F Pulse Rate 57 56 58 Respiratory Rate 18 18 17 Blood Pressure 124/56 L 113/58 L 104/55 L Pulse Oximetry 100 97 94 08/31/21 07:34 08/31/21 11:22 08/31/21 15:31 Temperature 97.8 F 97.9 F 98.3 F Pulse Rate 54 55 54 Respiratory Rate 18 16 18 Blood Pressure 117/59 L 105/55 L 111/59 L Pulse Oximetry 99 98 95 BMI result Body Mass Index 23.6 Labs Results: 08/30/21 05:29 08/31/21 05:30 Labs: Laboratory Results - last 48 hr 08/27/21 08/30/21 08/30/21 23:48 05:29 05:29 WBC 5.2 RBC 4.43 L Hgb 12.1 L Hct 36.2 L MCV 81.7 MCH 27.3 MCHC 33.4 RDW 13.5 Plt Count 144 L MPV 11.8 Immature Gran % (Auto) 0.2 Neut % (Auto) 45.0 Lymph % (Auto) 41.4 H [place] % (Auto) 12.2 H Eos % (Auto) 0.6 Baso % (Auto) 0.6 Lymph # (Auto) 2.1 [place] # (Auto) 0.6 Eos # (Auto) 0.0 Baso # (Auto) 0.0 Abs Immat Gran (auto) 0.01 Absolute Neuts (auto) 2.3 Absolute Nucleated RBC 0.000 Nucleated RBC % (auto) 0.0 Smear Tech's Comments VERIFIED PT 17.3 H INR 1.5 H Sodium Potassium Chloride Carbon Dioxide Anion Gap BUN Creatinine Estim Creat Clear Calc Estimated GFR Random Glucose Fasting Glucose Calcium Total Bilirubin Direct Bilirubin AST ALT Alkaline Phosphatase Ammonia Total Protein Albumin Hep Bs Antigen Negative Hep Bs Antibody REACTIVE Hep B Core Total Ab Reactive Hep B Core IgM Ab Cancelled Hepatitis C Ab (EIA) Reactive H HIV 1&2 Ab/P24 Ag 4thGn 08/30/21 08/30/21 08/30/21 05:29 05:29 15:14 WBC RBC Hgb Hct MCV MCH MCHC RDW Plt Count MPV Immature Gran % (Auto) Neut % (Auto) Lymph % (Auto) [place] % (Auto) Eos % (Auto) Baso % (Auto) Lymph # (Auto) [place] # (Auto) Eos # (Auto) Baso # (Auto) Abs Immat Gran (auto) Absolute Neuts (auto) Absolute Nucleated RBC Nucleated RBC % (auto) Smear Tech's Comments PT INR Sodium 136 Potassium 3.7 D Chloride 105 Carbon Dioxide 23 Anion Gap 12 BUN 5 L Creatinine 0.71 Estim Creat Clear Calc 107.3 Estimated GFR > 60 Random Glucose Fasting Glucose 107 H Calcium 7.7 L D Total Bilirubin 3.7 H Direct Bilirubin 2.9 H AST 2311 H ALT 2323 H Alkaline Phosphatase 111 Ammonia 66 H Total Protein 5.2 L Albumin 2.8 L Hep Bs Antigen Hep Bs Antibody Hep B Core Total Ab Hep B Core IgM Ab Hepatitis C Ab (EIA) HIV 1&2 Ab/P24 Ag 4thGn Nonreactive 08/30/21 08/31/21 08/31/21 15:14 05:30 05:30 WBC RBC Hgb Hct MCV MCH MCHC RDW Plt Count MPV Immature Gran % (Auto) Neut % (Auto) Lymph % (Auto) [place] % (Auto) Eos % (Auto) Baso % (Auto) Lymph # (Auto) [place] # (Auto) Eos # (Auto) Baso # (Auto) Abs Immat Gran (auto) Absolute Neuts (auto) Absolute Nucleated RBC Nucleated RBC % (auto) Smear Tech's Comments PT 15.8 H INR 1.4 H Sodium 138 Potassium 3.6 Chloride 106 Carbon Dioxide 27 Anion Gap 9 L BUN 4 L Creatinine 0.69 Estim Creat Clear Calc 110.4 Estimated GFR > 60 Random Glucose 124 H Fasting Glucose Calcium 7.7 L Total Bilirubin 3.4 H Direct Bilirubin 2.8 H AST 1227 H ALT 1803 H Alkaline Phosphatase 109 Ammonia Total Protein 5.0 L Albumin 2.7 L Hep Bs Antigen Hep Bs Antibody Hep B Core Total Ab Hep B Core IgM Ab Hepatitis C Ab (EIA) HIV 1&2 Ab/P24 Ag 4thGn Nonreactive EKG EKG: reviewed Imaging Radiology Impressions: ITS Impressions Abdomen/Pelvis CT 08/27/21 22:31 IMPRESSION: 1. No acute abnormalities in the abdomen and pelvis. 2. A nonobstructing 2 mm calculus in the right lower renal pole. Fleischner guidelines were followed. Chest X-Ray 08/28/21 05:34 IMPRESSION: No acute cardiopulmonary findings Abdomen Ultrasound 08/29/21 15:17 IMPRESSION: * No acute sonographic abnormalities in the examined abdomen. * No evidence of portal vein thrombosis. Doppler Study Ultrasound 08/29/21 15:17 IMPRESSION: * No acute sonographic abnormalities in the examined abdomen. * No evidence of portal vein thrombosis. Medications Medications Current Medications Bismuth Subsalicylate (Bismuth Subsalicylate 262 Mg Tablet) 262 mg PO QID PRN PRN Reason: heartburn Last Admin: 08/31/21 08:38 Dose: 262 mg Documented by: Diphenhydramine HCl (Diphenhydramine Hcl 25 Mg Tablet) 25 mg PO Q6H PRN PRN Reason: Allergic Symptoms Last Admin: 08/31/21 14:15 Dose: 25 mg Documented by: Docusate Sodium (Docusate Sodium 100 Mg Capsule) 100 mg PO DAILY PRN PRN Reason: Constipation Enoxaparin Sodium (Enoxaparin Sodium 40 Mg/0.4 Ml Syringe) 40 mg SUBCUT Q24H [facility] Last Admin: 08/31/21 08:31 Dose: 40 mg Documented by: Dextrose/Sodium Chloride (D5ns) 1,000 mls @ 100 mls/hr IVCONT .Q10H [facility] Last Admin: 08/31/21 13:59 Dose: 100 mls/hr Documented by: Acetylcysteine 6,864 mg/ (Dextrose) 1,034.32 mls @ 64.645 mls/hr IV .Q16H [facility] Last Admin: 08/31/21 04:55 Dose: 64.65 mls/hr Documented by: Methadone HCl (Methadone Hcl 20 Mg/2 Ml Oral.Conc) 80 mg PO DAILY [facility] Last Admin: 08/31/21 08:31 Dose: 80 mg Documented by: Morphine Sulfate (Morphine Sulfate 4 Mg/Ml Cartridge) 4 mg IVPUSH Q4H PRN; Protocol PRN Reason: Pain, Severe (Pain Scale 7-10) Last Admin: 08/30/21 03:27 Dose: 4 mg Documented by: Nicotine Polacrilex (Nicotine Polacrilex Lozenge 4 Mg Lozenge) 4 mg BUCCAL Q2H PRN PRN Reason: Nicotine Cravings Last Admin: 08/31/21 13:58 Dose: 4 mg Documented by: Ondansetron HCl (Ondansetron Hcl 4 Mg/2 Ml Vial) 4 mg IVPUSH Q8H PRN PRN Reason: Nausea and Vomiting Last Admin: 08/31/21 02:16 Dose: 4 mg Documented by: Pharmacy Consult (Consult Rx Perform Med Rec) 1 each MISCELLANE ONCE PRN PRN Reason: Consult order Pharmacy Consult (Consult Rx Perform Med Rec) 1 each MISCELLANE ONCE PRN PRN Reason: Consult order Polyethylene Glycol (Polyethylene Glycol 3350 17 Gm Powd.Pack) 17 gm PO BID [facility] Last Admin: 08/31/21 08:33 Dose: Not Given Documented by: Sodium Chloride (0.9 % Sodium Chloride Flush 3 Ml Syringe) 3 ml IVFLUSH QSHIFT [facility] Last Admin: 08/31/21 16:00 Dose: Not Given Documented by: Allergies Allergies Allergy/AdvReac Type Severity Reaction Status Date / Time vancomycin [Vancomycin] Allergy Mild HIVES Verified 08/27/21 10:01 Assessment & Plan Assessment & Plan (1) Opioid use disorder, moderate, dependence: Status: Acute Code(s): F11.20 - Opioid dependence, uncomplicated Assessment and Plan: continue methadone at current dose recovery support team to assist with CSS referrals follow up as needed I spent ___15___ minutes with the patient and/or on the patient floor today, greater than?50% of which was spent counseling/coordinating care.
[2021-08-31 19:33] VITALS: BP 141/70; PULSE 55; RESP 20; TEMP 36.8; O2SAT 99
[2021-08-31] MEDS: 0.9 % Sodium Chloride Flush 3 ML SYRINGE IVFLUSH (20:26)
[2021-08-31 23:39] VITALS: BP 118/57; PULSE 57; RESP 20; TEMP 36.9; O2SAT 96
[2021-09-01 03:41] VITALS: BP 134/62; PULSE 80; RESP 20; TEMP 36.6; O2SAT 97
[2021-09-01 05:10] LABS: Hepatitis A Antibody IgM 0.71 Index (0-0.79); ~Hepatitis A Antibody IgM Nonreactive (Nonreactive)
[2021-09-01] MEDS: Dextrose 5 % and 0.9 % NaCl 1,000 ML 100 ML IVCONT (06:41)
[2021-09-01] MEDS: Morphine Sulfate 4 MG/ML CARTRIDGE IVPUSH (07:28)
[2021-09-01] MEDS: ondansetron HCL 4 MG/2 ML VIAL IVPUSH (07:28)
[2021-09-01 08:00] VITALS: BP 126/65; PULSE 63; RESP 18; TEMP 36.6; O2SAT 94
[2021-09-01] MEDS: methADONE HCl 20 MG/2 ML ORAL.CONC 80 MG PO (08:02)
[2021-09-01] MEDS: 0.9 % Sodium Chloride Flush 3 ML SYRINGE IVFLUSH ×3 (08:02→22:07)
[2021-09-01] MEDS: Enoxaparin Sodium 40 MG/0.4 ML SYRINGE SUBCUT (08:02)
[2021-09-01 09:08] LABS: Hematocrit 32.7 % (42.0-52.0); Mean Corpuscular HGB Conc 33.6 g/dl (31.0-36.0); Mean Corpuscular Hemoglobin 27.5 pg (27.0-33.0); Mean Corpuscular Volume 81.8 fL (80.0-98.0); Mean Platelet Volume 12.3 fL (9.4-12.4); Platelet Count 169 X10*3/uL (160-400); Red Cell Distribution Width 14.3 % (11.0-16.0); White Blood Count 7.4 X10*3/uL (4.8-10.8)
[2021-09-01 09:22] LABS: Ammonia 51 umol/L (13-55)
[2021-09-01 09:31] LABS: Alanine Aminotransferase 1209 U/L (0-40); Albumin Level 2.7 g/dL (3.5-5.0); Alkaline Phosphatase 114 U/L (39-117); Anion Gap 8 (12-20); Aspartate Amino Transferase 448 U/L (5-37); Bilirubin Direct 1.8 mg/dL (0.0-0.5); Bilirubin Total 2.3 mg/dL (0.0-1.0); Blood Urea Nitrogen 3 mg/dL (9-16); Calcium 7.8 mg/dL (8.4-10.2); Carbon Dioxide 28 mmol/L (22-29); Chloride 106 mmol/L (96-108); Creatinine Clr Calc Pharmacy 117.2; Estimated Glomerular Filt Rate > 60; Glucose Random 143 mg/dL (60-115); Potassium 3.4 mmol/L (3.3-5.1); Sodium 139 mmol/L (135-145)
--- NOTE | 2021-09-01 10:27 | HO.PM.IMPN ---
Subjective Subjective Date of Service: 09/03/21 Interval History: complaining of rough night, was unable to sleep due to significant acidity, nausea, was not Seroquel 200 mg twice daily at home stop taking it 1 week prior to admission since was using fentanyl and other drugs requesting for Seroquel, continue to have decreased by mouth intake due to nausea , decreased appetite and abdominal discomfort. Review of Systems Review of Systems: Yes all other systems are reviewed and are negative Physical Exam Vital Signs: Vital Signs: Last Vital Signs Temp 98 F 09/01/21 08:00 Pulse 63 09/01/21 08:00 Resp 18 09/01/21 08:00 BP 126/65 09/01/21 08:00 Pulse Ox 94 09/01/21 08:00 BMI result Body Mass Index 23.6 Const: Other: General:? awake,Alert X3.? not in distress.? Eyes: Pupils equal, round and reactive to light.? Sclera anicteric.? neck no JVD cvs: regular rate rhythm res: clear toauscultation ,no rhonchii or wheezing abd:? soft, mild diffuse tenderness, bowel sounds audible, no guarding, no rigidity. ext pulses present , no edema . neuro: axo3 , nonfocal, no tremor. psych appropriate affect skin left lower extremity rash is fading. Objective Data Active Medications Bismuth Subsalicylate (Bismuth Subsalicylate 262 Mg Tablet) 262 mg PO QID PRN PRN Reason: heartburn Last Admin: 08/31/21 20:24 Dose: 262 mg Documented by: CHEVY Diphenhydramine HCl (Diphenhydramine Hcl 25 Mg Tablet) 25 mg PO Q6H PRN PRN Reason: Allergic Symptoms Last Admin: 08/31/21 21:48 Dose: 25 mg Documented by: CHEVY Docusate Sodium (Docusate Sodium 100 Mg Capsule) 100 mg PO DAILY PRN PRN Reason: Constipation Enoxaparin Sodium (Enoxaparin Sodium 40 Mg/0.4 Ml Syringe) 40 mg SUBCUT Q24H [facility] Last Admin: 09/01/21 08:02 Dose: 40 mg Documented by: TERESA Methadone HCl (Methadone Hcl 20 Mg/2 Ml Oral.Conc) 80 mg PO DAILY [facility] Last Admin: 09/01/21 08:02 Dose: 80 mg Documented by: TERESA Nicotine Polacrilex (Nicotine Polacrilex Lozenge 4 Mg Lozenge) 4 mg BUCCAL Q2H PRN PRN Reason: Nicotine Cravings Last Admin: 08/31/21 13:58 Dose: 4 mg Documented by: LAKISHA Omeprazole (Omeprazole 20 Mg Capsule.Dr) 20 mg PO DAILY@0630 [facility] Ondansetron HCl (Ondansetron Hcl 4 Mg/2 Ml Vial) 4 mg IVPUSH Q8H PRN PRN Reason: Nausea and Vomiting Last Admin: 09/01/21 07:28 Dose: 4 mg Documented by: TERESA Pharmacy Consult (Consult Rx Perform Med Rec) 1 each MISCELLANE ONCE PRN PRN Reason: Consult order Pharmacy Consult (Consult Rx Perform Med Rec) 1 each MISCELLANE ONCE PRN PRN Reason: Consult order Polyethylene Glycol (Polyethylene Glycol 3350 17 Gm Powd.Pack) 17 gm PO BID [facility] Last Admin: 09/01/21 08:34 Dose: Not Given Documented by: TERESA Non-Admin Reason: Patient Refused Quetiapine Fumarate (Quetiapine Fumarate 100 Mg Tablet) 100 mg PO BEDTIME [facility] Sodium Chloride (0.9 % Sodium Chloride Flush 3 Ml Syringe) 3 ml IVFLUSH QSHIFT [facility] Last Admin: 09/01/21 08:02 Dose: 3 ml Documented by: TERESA Labs CBC & Chem 7: 09/01/21 08:48 09/02/21 05:32 Labs: Laboratory Results - last 24 hr 08/27/21 09/01/21 09/01/21 23:48 08:48 08:48 MCV MCH MCHC RDW Plt Count MPV Absolute Nucleated RBC Nucleated RBC % (auto) Anion Gap 8 L Estim Creat Clear Calc 117.2 Estimated GFR > 60 Random Glucose 143 H Calcium 7.8 L Total Bilirubin 2.3 H Direct Bilirubin 1.8 H AST 448 H ALT 1209 H Alkaline Phosphatase 114 Ammonia 51 Total Protein 5.0 L Albumin 2.7 L Hepatitis A IgM Ab Nonreactive 09/01/21 08:48 MCV 81.8 MCH 27.5 MCHC 33.6 RDW 14.3 Plt Count 169 MPV 12.3 Absolute Nucleated RBC 0.000 Nucleated RBC % (auto) 0.0 Anion Gap Estim Creat Clear Calc Estimated GFR Random Glucose Calcium Total Bilirubin Direct Bilirubin AST ALT Alkaline Phosphatase Ammonia Total Protein Albumin Hepatitis A IgM Ab Assessment and Plan (1) Suicidal ideation: Status: Acute (2) Acute hepatitis: Status: Acute Plan 56-year-old male with past medical history positive? for polysubstance abuse, hepatitis-C,depression anxiety, presents to the hospital with suicidal ideation found to have acute hepatitis, constipation and generalized pain. 1.acute hepatitis: LFTs gradually improving, possibly induced by cocaine abuse , with baseline history of hepatitis C ?? salicylate and Tylenol level negative ?? continue supportive care ,avoid hepatotoxins, ?? stable inr , abd US showed no abnormalities and no evidence of portal venous thrombosis. moniter liver functions , pt/inr stable, hepatitis C viral load and hepatitis D pending, HIV nonreactive continue antiemetics encourage by mouth,continue Ensure t.i.d. DC acetylcystine/ add Prilosec for acidity, encourage out of bed to chair and ambulation 2. fever- no evidence of sepsis no recurrent fevers workup including lactic acid, CT abdomen showed no acute abnormalities, showed nonobstructing 2 mm calculus right lower renal pole, UA and chest x-ray unremarkable blood culture neg, initially received doxycycline and Zosyn discontinued due to negative blood culture 3. suicidal ideation - case discussed with Addiction Team patient with no suicidal ideation. 4. poly substance abuse with withdrawal symptoms ?? noted to have positive cocaine, fentanyl and opiates, history of chronic abuse, continue on methdone, being followed by Addiction Team utpatient referrals given, and looking for CSS placement. 5.constipation resolved likely due to narcotics,cont.stool softners. 6. mood disorder? noted to be on Seroquel 200 mg twice daily but patient has not filled? since June , patient complaining of insomnia and requesting for Seroquel will resume low-dose Seroquel 100 mg at bedtime, patient on methadone and Seroquel needs QT to be monitored closely 7. lower extremity rash with itching improving continue Benadryl, DVT prophylaxis Lovenox ?patient will need inpatient hospitalization due to acute hepatitis, persistent nausea decreased by mouth intake, polysubstance abuse and withdrawal need close clinical follow-up. Quality Stroke Does the patient have a stroke diagnosis?: No VTE Prior VTE?: No VTE Risk Level:: Medical - moderate - high VTE Device Contraindication: Treatment Not Indicated VTE Drug Contraindication: N/A - Med Ordered
[2021-09-01] MEDS: Omeprazole 20 MG CAPSULE.DR PO (11:03)
[2021-09-01 11:43] VITALS: BP 101/62; PULSE 63; RESP 18; TEMP 36.5; O2SAT 95
[2021-09-01 11:52] LABS: Hepatitis B Viral DNA Qn - cp <1.00 NOT DETECTED Log IU/mL (NOT DETECTED); Hepatitis B Viral DNA Qn-IU/mL <10 NOT DETECTED IU/mL (NOT DETECTED)
[2021-09-01 12:11] LABS: HCV Log PCR 6.58 Log IU/mL (NOT DETECTED); HepC Viral Load 3780000 IU/mL (NOT DETECTED)
--- NOTE | 2021-09-01 15:14 | MHC.CM.PN ---
PER PHYSICIAN ROUNDS, PATIENT WILL DC MONDAY ACCORDING TO ADDICTION MEDICINE, RECOVERY TEAM TO ASSIST WITH PATIENT'S DESIRE FOR [facility] ADMISSION. PATIENT MAY NEED CUSTODIAL LIST
[2021-09-01 15:17] VITALS: BP 101/56; PULSE 53; RESP 18; TEMP 37.4; O2SAT 96
--- NOTE | 2021-09-01 15:34 | MHC.RECOVRN ---
Met with pt to f/u regarding CSS referrals. 9 referrals have been placed, pt aware. Pt reports poor sleep due to n/v. Pt comfortable with current methadone dose, denies withdrawal symptoms. Discussed with Sandee Wray APRN. Will continue to follow.
[2021-09-01] MEDS: diphenhydrAMINE HCL 25 MG TABLET PO (16:55)
[2021-09-01 19:38] VITALS: BP 96/51; PULSE 52; RESP 16; TEMP 36.9; O2SAT 95
--- NOTE | 2021-09-01 21:27 | PM.EVENT ---
Event Note Date of Service: 09/01/21 Event Note: GI-Course noted-LFT's significantly improving. Hep C viral load is now detectable as compared to a nondetectable level in 2020. This could imply a component of acute Hepatitis C contributing to his current presentation, in addition to all of the toxins found in his system. He can be referred as an outpatient for further evaluation and treatment of the Hep C when things have stabilized from his psych and substance abuse standpoint. In the meantime, continue current measures of supportive care and avoidance of hepatotoxins. Thanks.
[2021-09-01] MEDS: QUEtiapine Fumarate 100 MG TABLET PO (22:06)
[2021-09-01 23:48] VITALS: BP 101/51; PULSE 52; RESP 14; TEMP 36.8; O2SAT 94
[2021-09-02 04:00] VITALS: BP 108/54; PULSE 46; RESP 14; TEMP 37; O2SAT 94
[2021-09-02] MEDS: Omeprazole 20 MG CAPSULE.DR PO (06:20)
[2021-09-02 06:34] LABS: Alanine Aminotransferase 891 U/L (0-40); Albumin Level 2.5 g/dL (3.5-5.0); Alkaline Phosphatase 116 U/L (39-117); Anion Gap 11 (12-20); Aspartate Amino Transferase 245 U/L (5-37); Bilirubin Direct 1.2 mg/dL (0.0-0.5); Bilirubin Total 1.6 mg/dL (0.0-1.0); Blood Urea Nitrogen 6 mg/dL (9-16); Carbon Dioxide 29 mmol/L (22-29); Chloride 106 mmol/L (96-108); Creatinine Clr Calc Pharmacy 108.8; Estimated Glomerular Filt Rate > 60; Glucose Random 90 mg/dL (60-115); Magnesium 1.9 mg/dL (1.6-2.6); Potassium 3.8 mmol/L (3.3-5.1); Sodium 142 mmol/L (135-145); Total Protein 4.9 g/dL (6.5-8.0)
[2021-09-02] MEDS: Enoxaparin Sodium 40 MG/0.4 ML SYRINGE SUBCUT (07:34)
[2021-09-02] MEDS: methADONE HCl 20 MG/2 ML ORAL.CONC 80 MG PO (07:34)
[2021-09-02] MEDS: 0.9 % Sodium Chloride Flush 3 ML SYRINGE IVFLUSH (07:34)
[2021-09-02 07:43] VITALS: BP 116/58; PULSE 50; RESP 18; TEMP 36.2; O2SAT 97
[2021-09-02 11:44] VITALS: BP 105/59; PULSE 57; RESP 18; TEMP 36.8; O2SAT 97
--- NOTE | 2021-09-02 15:05 | MHC.CM.PN ---
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
[2021-09-02] MEDS: ondansetron HCL 4 MG/2 ML VIAL IVPUSH (15:26)
[2021-09-02 15:43] VITALS: BP 122/61; PULSE 61; RESP 18; TEMP 37.1; O2SAT 99
--- NOTE | 2021-09-02 16:20 | MHC.RECOVRN ---
Met with pt to f/u regarding CSS availability. Bedsearch exhausted. Pt provided with list of facilities referral has been sent to, will f/u outpatient. Referrals sent to: [facility]- [phone] [facility]- [phone] [facility]- [phone] [facility]- [phone] option 1 [facility]- [phone] option 1 [facility]- [phone] [facility]- [phone] [facility]- [phone] [facility]- [phone] Pt plans to go to mother's house today and brother's house tomorrow. Pt feels safe and agreeable to this plan. Pt provided with t/w contact information if needed. Discussed with provider and CM.
--- NOTE | 2021-09-03 15:01 | PM.DS ---
DS: Providers Provider Date of Service: 09/03/21 Date of admission: 08/27/21 23:33 Primary care physician: Dominique He DO Consults: 08/27/21 10:29 Consult to Crisis Stat Reason for consultation: on edge Has provider been notified: Yes 08/27/21 23:45 Consult to Psychiatry Routine Consulting Provider: Psych Covering Reason for consultation: suicidal Has provider been notified: No 08/28/21 07:03 Consult to Gastroenterology Routine Consulting Provider: Quinten Shelton Reason for consultation: acute hepatitis Has provider been notified: No 08/29/21 13:55 Consult to Infectious Diseases Routine Consulting Provider: Chela Farrell Reason for consultation: FUO Has provider been notified: No 08/30/21 13:57 Addiction Medicine Routine Consulting Provider: Sandee Wray Reason for consultation: on methadone with wd sxs Has provider been notified: No DS: Diagnosis Discharge Diagnosis (1) Suicidal ideation: Status: Acute (2) Acute hepatitis: Status: Acute DS: Summary Hospital Course Hospital Course: history of presenting illness Chief Complaint: suicidal This is a 56-year-old male with past medical history of polysubstance abuse hepatitis-C, anxiety and depression, arthritis, opioid dependence, presents to the hospital with complaints of suicidal and homicidal ideation. pt reports that he got kicked out of the place he was living in, he lost all his medications and resorted to using sentinel on the streets.? He reports that ever since using fentanyl for the past 2 weeks he has just not been feeling well.? He reports that every time he has no access to his medication he becomes suicidal homicidal.? He just feels pain all over his body with no specific area more painful.? He had denies any fever but has chills.? He denies any abdominal pain, but is significantly constipated and reports that he has not had a bowel movement in few days. Initial arrival to the ED patient hemodynamically stable with no significant abnormal vitals Initial labs were significant for WBC count of 5.7, hemoglobin of 13.3, calcium of 8.9, total bili of 1.2, AST of a 62, 771 for ALT, increased to 9087 and 924.? Salicylate less than 5, Tylenol less than 1.? UA is positive for opioids, fentanyl, as well as cocaine.? Hepatitis panel pending Given patient's significant LFT elevation, he will require a medically necessary 2 night admission for evaluation and monitoring. Hospital course 56-year-old male with past medical history positive? for polysubstance abuse, hepatitis-C,depression anxiety, presents to the hospital with suicidal ideation found to have acute hepatitis, constipation and generalized pain. ?1.acute hepatitis, likely induced by cocaine abuse with baseline history of hepatitis-C LFTs improved gradually, salicylate and Tylenol level negative, stable inr , abd US showed no abnormalities and no evidence of portal venous thrombosis,? pt/inr stable, hepatitis C viral load? elevated, HIV nonreactive ,hepatitis D pending, patient treated with IV acetylcysteine, ppi, supportive care IV fluids, antiemetics and high-protein diet, was followed by Gastroenterology they agreed with current treatment plan. 2. fever- no evidence of sepsis no recurrent fevers workup including lactic acid, CT abdomen showed no acute abnormalities, showed nonobstructing 2 mm calculus right lower renal pole, UA and chest x-ray unremarkable ? ? blood culture neg, initially received doxycycline and Zosyn discontinued due to negative blood culture? ? 3. suicidal ideation? case discussed with Addiction Team , patient denied suicidal ideation outpatient psych referral given patient will call his psychiatrist for follow-up. 4. poly substance abuse with withdrawal symptoms noted to have positive cocaine, fentanyl and opiates, history of chronic abuse, continue on methdone,?seen by Addiction Team, outpatient referrals given. 5.constipation resolved likely due to narcotics,cont.stool softners. 6. mood disorder? noted to be on Seroquel 200 mg twice daily but patient has not filled? since June, recommend to follow-up with Psychiatry since on methadone both can increase QT interval. 7. lower extremity rash with itching? improved. Time Spent with Patient Time attestation: Total time spent providing and/or coordinating discharge services: Discharge coordination time: Greater than 30 minutes Quality: Safe Use of Opioids Does Pt have an Active Cancer Diagnosis on the Problem List?: No Quality: Stroke Does the patient have a stroke diagnosis?: No Physical Exam Vital Signs: Vital Signs: Last Vital Signs Temp 98.7 F 09/02/21 15:43 Pulse 61 09/02/21 15:43 Resp 18 09/02/21 15:43 BP 122/61 09/02/21 15:43 Pulse Ox 99 09/02/21 15:43 BMI result Body Mass Index 23.6 Const: Other: General:? awake,Alert X3.? no distress.? Eyes: Pupils equal, round and reactive to light.? Sclera anicteric.? neck no JVD cvs: regular rate rhythm res: clear to auscultation ,no rhonchii or wheezing abd:? soft,?no tenderness, bowel sounds audible, no guarding, no rigidity. ext pulses present , no edema . neuro: axo3 , nonfocal, no tremor. psych appropriate affect skin left lower extremity rash resolved. ? Discharge Plan Discharge Patient Disposition: Home, Self-Care Discharge Diagnosis: acute hepatitis polysubstance abuse with withdrawal symptoms Referrals: Dominique He DO [Primary Care Provider] - 1 Week Discharge Medications: Continued methadone 10 mg/mL Concentrate 79 mg PO DAILY 0RF Discontinued quetiapine 200 mg Tablet 200 mg PO BID Qty: 60 0RF baclofen 10 mg Tablet 10 mg PO TID PRN (Reason: muscle spasm) Qty: 15 0RF Discharge Orders: Discharge Order (Routine); Ordered 09/02/21 Ordered By: Tam Mack Diet: advance to usual diet Activity on Discharge: As tolerated Stand Alone Forms: Patient Portal Discharge page Print Language: Albanian Care Plan Goals: acute liver injury improved was likely due to cocaine use recommend to complete abstinence from illicit drug use, Seroquel discontinued since patient has not taking it for 1 week recommend to follow-up with psychiatry. Health Concerns: strongly recommend to abstain from illicit drug use. Plan of Treatment: close outpatient follow-up with primary care physician and Psychiatry. Assessment: as per discharge summary. Patient Instructions: Mood Disorders (ED), Suicide Prevention (ED), Opioid Use Disorder (ED) Discharge Date/Time: 09/02/21 16:40
[2021-09-07 21:22] LABS: Hepatitis Delta Antibody NEGATIVE
== END 2021-09-02 16:40 | disposition home or self-care (01) | DRG 918 ==
LOC: HO.ED 23:22 → HO.EDOVER 23:54 → HO.S3 08-28 14:49
PROVIDERS: Internal Medicine; Nurse Practitioner Family; Physician Assistant Medical; Admitting Provider Internal Medicine; Emergency Provider Internal Medicine; PCP Family Medicine; Visit Provider Hospitalist
DX: T40.5X1A Poisoning by cocaine, accidental (unintentional), initial encounter (principal); F11.20 Opioid dependence, uncomplicated; R45.851 Suicidal ideations; F19.130 Other psychoactive substance abuse with withdrawal, uncomplicated; B17.10 Acute hepatitis C without hepatic coma; K71.2 Toxic liver disease with acute hepatitis; R50.9 Fever, unspecified; R21 Rash and other nonspecific skin eruption; R45.850 Homicidal ideations; K59.03 Drug induced constipation; F17.210 Nicotine dependence, cigarettes, uncomplicated; Z71.6 Tobacco abuse counseling; Z91.14 Patient's other noncompliance with medication regimen; Z86.19 Personal history of other infectious and parasitic diseases
CPT/HCPCS: 36415; 71045; 74177; 76705; 80048; 80053; 80061; 80076; 80143; 80179; 80307; 81001; 82077; 82140; 83605; 83690; 83735; 85025; 85027; 85610; 86692; 86704; 86706; 86709; 86803; 87040; 87340; 87389; 87517; 87522; 87635; 93005; 93975; 96361; 96374; 99285; J0132; J1200; J1650; J2270; J2405; J2543; J3430; Q0163; Q9967

== ENCOUNTER 2022-01-28 07:56 | Outpatient (REF) | payer OTHER, SELFPAY ==
--- NOTE | ~2022-01-28 | US_ITS ---
EXAMINATION: US ABDOMEN COMPLETE CLINICAL INFORMATION: Abdominal distention. COMPARISON: Ultrasound abdomen limited 08/29/2021. CT abdomen and pelvis 08/27/2021 TECHNIQUE: Real-time imaging of the abdominal viscera. Technically limited study secondary to body habitus and bowel gas. FINDINGS: PANCREAS: The visualized pancreas is normal in size and echogenicity. There is no visible pancreatic ductal distention or retroperitoneal effusion. The distal body and tail are obscured by bowel gas and not completely imaged. ABDOMINAL AORTA: The proximal and mid abdominal aorta are obscured by bowel gas and not imaged. Distal abdominal aorta shows no aneurysmal enlargement. INFERIOR VENA CAVA: Visualized portions are normal. LIVER: The liver is normal in size and smooth in contour. Hepatic parenchymal echogenicity is within normal. There is no focal hepatic parenchymal lesion or intrahepatic ductal dilatation. Color Doppler shows portal flow towards the liver. GALLBLADDER: Normal. The gallbladder is physiologically distended without evidence of stones, sludge, polyps, wall thickening or pericholecystic fluid. Negative sonographic Veras's sign. COMMON BILE DUCT: Mild fullness measuring 5-7.5 mm in caliber. Distal duct is obscured by bowel gas. Visualized duct shows no calculi or sludge. RIGHT KIDNEY: Normal. No hydronephrosis. No renal calculi or focal parenchymal lesions. The kidney measures 9.5 cm in maximum dimension. LEFT KIDNEY: Normal. No hydronephrosis. No renal calculi or focal parenchymal lesions. The kidney measures 9.8 cm in maximum dimension. SPLEEN: Normal. The spleen measures 9.1 cm in maximum dimension. FREE FLUID: None. US/US abdomen complete IMPRESSION: -Gallbladder unremarkable. No cholelithiasis or gallbladder wall thickening. -Mild fullness common duct, 0.75 cm. No intrahepatic ductal dilatation. -Bowel gas obscures portions of pancreas, aorta, and distal common duct. -No hydronephrosis.
== END 2022-01-28 07:57 | disposition home or self-care (01) ==
LOC: HO.US 07:56
PROVIDERS: Visit Provider Family Medicine
DX: R14.0 Abdominal distension (gaseous) (principal)
CPT/HCPCS: 76700

== ENCOUNTER 2022-11-04 13:28 | Outpatient (REF) | payer OTHER, SELFPAY ==
--- NOTE | ~2022-11-04 | XR_ITS ---
EXAMINATION: 1. RADIOGRAPHS CHEST 2. RADIOGRAPHS RIGHT ANKLE 3. RADIOGRAPHS LEFT ANKLE CLINICAL INFORMATION: Shortness of breath. Dyspnea on exertion. Bilateral ankle pain and swelling, worse on the right. COMPARISON: Chest x-ray August 28, 2021 TECHNIQUE: 2 views of the chest and 3 views of each ankle were obtained FINDINGS: Chest: Cardiac silhouette is normal in size. The lungs are well aerated. There is no lobar consolidation. No pleural effusion or pneumothorax. No acute osseous abnormality. Right ankle: Visualized portion of the distal right tibia and fibula demonstrate no fracture. Ankle mortise is maintained. No focal soft tissue swelling of right ankle. No gross ankle joint effusion. Left ankle: Visualized portion of the distal left tibia and fibula demonstrate no fracture. Ankle mortise is maintained. No focal soft tissue swelling of the left ankle. No gross ankle joint effusion. XR/XR ankle RT min 3V IMPRESSION: 1. No acute pulmonary pathology. 2. Unremarkable radiographs of the bilateral ankles.
--- NOTE | ~2022-11-04 | XR_ITS ---
EXAMINATION: 1. RADIOGRAPHS CHEST 2. RADIOGRAPHS RIGHT ANKLE 3. RADIOGRAPHS LEFT ANKLE CLINICAL INFORMATION: Shortness of breath. Dyspnea on exertion. Bilateral ankle pain and swelling, worse on the right. COMPARISON: Chest x-ray August 28, 2021 TECHNIQUE: 2 views of the chest and 3 views of each ankle were obtained FINDINGS: Chest: Cardiac silhouette is normal in size. The lungs are well aerated. There is no lobar consolidation. No pleural effusion or pneumothorax. No acute osseous abnormality. Right ankle: Visualized portion of the distal right tibia and fibula demonstrate no fracture. Ankle mortise is maintained. No focal soft tissue swelling of right ankle. No gross ankle joint effusion. Left ankle: Visualized portion of the distal left tibia and fibula demonstrate no fracture. Ankle mortise is maintained. No focal soft tissue swelling of the left ankle. No gross ankle joint effusion. XR/XR chest 2V IMPRESSION: 1. No acute pulmonary pathology. 2. Unremarkable radiographs of the bilateral ankles.
--- NOTE | ~2022-11-04 | XR_ITS ---
EXAMINATION: 1. RADIOGRAPHS CHEST 2. RADIOGRAPHS RIGHT ANKLE 3. RADIOGRAPHS LEFT ANKLE CLINICAL INFORMATION: Shortness of breath. Dyspnea on exertion. Bilateral ankle pain and swelling, worse on the right. COMPARISON: Chest x-ray August 28, 2021 TECHNIQUE: 2 views of the chest and 3 views of each ankle were obtained FINDINGS: Chest: Cardiac silhouette is normal in size. The lungs are well aerated. There is no lobar consolidation. No pleural effusion or pneumothorax. No acute osseous abnormality. Right ankle: Visualized portion of the distal right tibia and fibula demonstrate no fracture. Ankle mortise is maintained. No focal soft tissue swelling of right ankle. No gross ankle joint effusion. Left ankle: Visualized portion of the distal left tibia and fibula demonstrate no fracture. Ankle mortise is maintained. No focal soft tissue swelling of the left ankle. No gross ankle joint effusion. XR/XR ankle LT min 3V IMPRESSION: 1. No acute pulmonary pathology. 2. Unremarkable radiographs of the bilateral ankles.
== END 2022-11-04 13:29 | disposition home or self-care (01) ==
LOC: HO.HHCX 13:28
PROVIDERS: Visit Provider Family Medicine
DX: R06.09 Other forms of dyspnea (principal); M25.571 Pain in right ankle and joints of right foot; M25.572 Pain in left ankle and joints of left foot
CPT/HCPCS: 71046; 73610

== ENCOUNTER 2022-12-27 09:09 | Outpatient (AMB) | payer OTHER, SELFPAY ==
--- NOTE | 2022-12-27 09:11 | MHC.OFFVIS ---
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 States that he had a left ankle injury many years ago and beleives it didnt heal right. Right LE also has swelling, no injury to that leg. Does have bilateral LE discoloration. Pt states his PCP gave him compression socks and they help but with the heat of summer he gets rashes. Accompanied by: Self / Same As Patient Allergies vancomycin [Vancomycin] Allergy (Mild, Verified 12/27/22 09:16) HIVES HPI INSTALLATION AND SERVICE TECHNICIAN/HHC LE SWELLING HPI Details Pleasant 57-year-old gentleman patient presents for painful varicose veins. Complaints include pain over varicosities, swelling of lower extremities, cramping, fatigue, and heaviness of the lower extremities. It has been affecting there daily activities including walking. It is noted more so in right leg. Of note at the age of 12 he had a right ankle fracture. He also reports that he quit smoking about 2 months ago. He is a nondiabetic. He also has a prior history of polysubstance abuse and is on methadone maintenance. Patient denies any previous venous surgery or injections. Patient denies any history of DVT/ PE. Patient denies any history of phlebitis. Trial of compression includes - [id number] They now present for vascular evaluation regarding their varicose veins. [facility] Medical History Arthritis Chronic venous insufficiency History of hepatitis C Opiate dependence Panic disorder Polysubstance abuse Tobacco dependence Varicose veins of both lower extremities Surgical History H/O removal of cyst Family History Maternal Aunt Cardiac disorder Maternal Grandmother Cardiac disorder Mother Diabetes Hypertension Social History (Updated 12/27/22 @ 09:18 by NEY Schulte) Household Members: Other Household Members Other:: homeless Housing: Homeless Do you presently have visiting nurse or other home services: No Alcohol intake: former Patient Tobacco Use Status: Former Tobacco user Tobacco use type: Cigarette Cigarette Packs Per Day: 0 Cigarettes Per Day: 3 Years Smoked: 10 e-Cigarette/Vaping Use: Never Used Second Hand Smoke Exposure: No Substance Use Type: Heroin service: No Current occupational status: disabled Sexual orientation: Did not discuss Review of Systems Const Reports as per HPI ENT Reports no additional complaints Card Denies chest pain, Denies chest pain at rest and Denies chest pain with activity Resp Denies chest congestion and Denies cough GI Reports no additional complaints Musc Details: pain over varicosities, aching of lower extremities, swelling, cramping, heaviness and tiredness, itching Denies abnormal gait Skin/Breast Reports pruritus and Denies wounds Neuro Reports no additional complaints and Denies abnormal gait Psych Denies no additional complaints Physical Exam Vital Signs: BMI result Body Mass Index 29.8 Const General: cooperative, healthy appearing and comfortable Orientation/consciousness: oriented to person, oriented to place and oriented to time Neck Carotids: no bruits Chest Chest palpation & inspection: normal inspection of the chest and normal palpation of entire chest wall Resp Effort & Inspection: normal respiratory effort and able to speak in complete sentences Cardio Rate: regular rate Heart sounds: S1 normal heart sound present and S2 normal heart sound present Peripheral pulses: Peripheral pulses 2+ throughout GI Inspection: Yes normal to inspection Skin Other: +2 edema, large rope-like varicosities greater than 4 mm CEAP Classification C4 - skin color changes Ep - Etiology Primary As - superficial veins P - reflux General skin exam: dry skin Neuro General: oriented to person, oriented to place and oriented to time Extrem Right lower extremity: full ROM, normal capillary refill and edema Left lower extremity: full ROM, normal capillary refill and edema Psych Mental Status: mental status grossly normal Assessment & Plan Assessment & Plan (1) Varicose veins of right lower extremity with inflammation: Code(s): I83.11 - Varicose veins of right lower extremity with inflammation Plan: In short, the patient has evidence of venous insufficiency. I have discussed the pathophysiology with the patient. In addition I have provided informational material regarding venous disease to the patient. We have discussed conservative measures including compression, elevation, and exercise. I have also provided a handout regarding appropriate use of compression stockings and where to purchase good compression stockings as well. I have taken the liberty of ordering venous insufficiency testing with the patient. They will follow up with me after testing. The patient had an opportunity to ask questions regarding the treatment plan. All questions were answered. Imaging studies, laboratory studies and physical exam results were discussed and reviewed in detail. No major barriers to understanding were identified. The patient expressed understanding and agreement with the above treatment plan. The patient is aware they should contact our office by phone for worsening of the current condition or the appearance of new symptoms. Thank you for allowing me to participate in the vascular care of this patient. If you have any questions or concerns regarding the treatment for the above condition please do not hesitate to contact me. The office telephone contact is [phone]. This note is constructed using voice recognition software. While every effort has been made to ensure accuracy, principal consulting engineer errors may have been included. Thank you for allowing me to participate in the care of your patient. Yours sincerely, Real Marie MD, FACS, R.P.V.I. Orders: Orders US venous duplex LE BI 1 Week I83.11 - Varicose veins of right lower extremity with inflammation Coding Level of Care Code New Pt Level 4 (54492) Diagnoses Varicose veins of right lower extremity with inflammation I83.11
[2022-12-27 09:12] VITALS: BMI 29.8
== END 2022-12-27 09:52 | disposition home or self-care (01) ==
PROVIDERS: PCP Family Medicine; Visit Provider Surgery Vascular Surgery
DX: I83.11 Varicose veins of right lower extremity with inflammation (principal)
CPT/HCPCS: 99203

== ENCOUNTER → 2022-12-27 09:09 | Outpatient (BNVA) | payer OTHER, SELFPAY | PROVIDERS: PCP Family Medicine; Visit Provider Surgery Vascular Surgery ==

== ENCOUNTER 2023-08-29 10:25 | Outpatient (REF) | payer OTHER, SELFPAY ==
[2023-08-29 13:43] LABS: Estimated Average Glucose 111 mg/dL; Hemoglobin A1c % 5.5 % (<6.0)
[2023-08-29 14:03] LABS: Alanine Aminotransferase 16 U/L (0-40); Alkaline Phosphatase 70 U/L (39-117); Anion Gap 10 (12-20); Aspartate Amino Transferase 25 U/L (5-37); Bilirubin Direct 0.2 mg/dL (0.0-0.5); Bilirubin Total 0.4 mg/dL (0.0-1.0); Blood Urea Nitrogen 18 mg/dL (9-16); Calcium 9.3 mg/dL (8.4-10.2); Carbon Dioxide 29 mmol/L (22-29); Chloride 104 mmol/L (96-108); Cholesterol 212 mg/dL (<200); Estimated Glomerular Filt Rate > 60; Glucose Random 93 mg/dL (60-115); HDL Cholesterol 57 mg/dL (>40); LDL Cholesterol Calculated 127 mg/dL (<100); Sodium 139 mmol/L (135-145); Total Protein 7.4 g/dL (6.5-8.0); Triglycerides 144 mg/dL (<150)
[2023-08-29 14:25] LABS: Free T4 (Free Thyroxine) 0.96 ng/dL (0.71-1.85); Vitamin D 25-OH Total 45.9 ng/mL (>30)
[2023-08-29 14:28] LABS: Hematocrit 40.7 % (42.0-52.0); Hemoglobin 13.6 g/dl (14.0-18.0); Mean Corpuscular HGB Conc 33.4 g/dl (31.0-36.0); Mean Corpuscular Hemoglobin 28.4 pg (27.0-33.0); Mean Platelet Volume 11.5 fL (9.4-12.4); Platelet Count 253 X10*3/uL (160-400); Red Blood Count 4.79 X10*6/uL (4.60-5.80); Red Cell Distribution Width 13.2 % (11.0-16.0); White Blood Count 8.3 X10*3/uL (4.8-10.8)
[2023-08-29 15:43] LABS: CT PCR NOT DETECTED (Not Detect.); NG PCR NOT DETECTED (Not Detect.)
[2023-08-30 04:17] LABS: HBS Num1 > 1000.00 mIU/mL (0-7.99); HIV AB/AG Nonreactive (Nonreactive); HIV Num 1 0.05 S/CO (0.00-0.99); Hepatitis B Surface Antigen Negative (Negative); ~HepC Num1 15.19 S/CO (0.00-0.79); ~Hepatitis B Surface Antibody REACTIVE (Nonreactive); ~Hepatitis C Antibody Reactive (Nonreactive)
[2023-08-31 09:44] LABS: RPR Rapid Plasma Reagin NON-REACTIVE (NON-REACTIVE)
[2023-09-01 17:03] LABS: HCV Log PCR <1.18 NOT DETECTED Log IU/mL (NOT DETECTED); HepC Viral Load <15 NOT DETECTED IU/mL (NOT DETECTED)
== END 2023-08-29 10:26 | disposition home or self-care (01) ==
LOC: HO.HHCL 10:25
PROVIDERS: Visit Provider Family Medicine
DX: Z00.00 Encounter for general adult medical examination without abnormal findings (principal); R35.0 Frequency of micturition; Z12.5 Encounter for screening for malignant neoplasm of prostate; Z20.2 Contact with and (suspected) exposure to infections with a predominantly sexual mode of transmission
CPT/HCPCS: 0353U; 36415; 80048; 80061; 80076; 82306; 83036; 84153; 84439; 84443; 85027; 86592; 86706; 86803; 87086; 87340; 87389; 87522

== ENCOUNTER → 2024-01-31 13:59 | Outpatient (RCR) | payer OTHER, SELFPAY ==
[2020-05-28 09:45] VITALS: BP 110/64; PULSE 63; RESP 18; TEMP 37.1; O2SAT 97; BMI 27.6
--- NOTE | 2020-05-28 10:59 | PM.HEMONCCN ---
Subjective - Subjective Chief complaint: Generalized body pains Consult date: 05/28/20 Primary Care Provider: Dominique He DO HPI - Consult Narrative Reason for consult: Leukocytosis Narrative: Nestor Walls is a 55 year old male referred for evaluation of leukocytosis. Patient has multiple complaints such as headache, fatigue, poor appetite and not feeling well. He does not know if he lost weight. He says these symptoms have been ongoing for several months. He has not seen his PCP for several months, he has had tele visit on 1 or 2 occasions. He denies any recent use of antibiotics or prednisone. He is not on any new medications. Review of Systems - Constitutional Reports body aches, Reports fatigue, Reports headache(s), Reports lack of energy, Reports poor appetite PMFSH Medical History: Medical History (Last Updated 05/19/20 @ 08:26 by Julieta Trujillo) Arthritis Chronic venous insufficiency History of hepatitis C Opiate dependence Panic disorder Polysubstance abuse Tobacco dependence Varicose veins of both lower extremities Family History: Family History (Last Updated 05/28/20 @ 09:59 by Lucy Hernandes RN) Maternal Aunt Cardiac disorder Maternal Grandmother Cardiac disorder Mother Diabetes Hypertension Surgical History: Surgical History (Last Updated 05/28/20 @ 09:58 by Lucy Hernandes RN) H/O removal of cyst Smoking status: Current every day smoker Home Medications and Allergies Home Medications Medication Instructions Recorded Confirmed Type cholecalciferol (vitamin D3) 1 tab PO DAILY 05/02/20 05/02/20 History [Vitamin D3] clonidine HCl 1 tab PO TID 05/02/20 05/02/20 History quetiapine 1 tab PO BID 05/02/20 05/02/20 History baclofen 1 tab PO TID PRN 05/28/20 05/28/20 History gabapentin 1 cap PO BID 05/28/20 05/28/20 History hydroxyzine pamoate 1 cap PO BID PRN 05/28/20 05/28/20 History methadone 80 mg PO DAILY 05/28/20 05/28/20 History zolpidem 1 tab PO BEDTIME 05/28/20 05/28/20 History Allergies Allergy/AdvReac Type Severity Reaction Status Date / Time vancomycin [Vancomycin] Allergy Mild HIVES Verified 05/28/20 10:00 Physical Exam Vital signs: Vital Signs Temp 98.7 F 05/28/20 09:45 Pulse 63 05/28/20 09:45 Resp 18 05/28/20 09:45 BP 110/64 05/28/20 09:45 Pulse Ox 97 05/28/20 09:45 Intake & Output 05/27/20 05/28/20 05/28/20 18:59 06:59 18:59 Other: Weight 79.9 kg Weight 79.9 kg - Constitutional Present: no acute distress - Routine HEENT Exam Head: Present: normal inspection Eye: Present: EOMI - Routine Neck Exam Absent: lymphadenopathy - Routine Respiratory Exam Absent: respiratory distress - Routine Cardiovascular Exam Cardiovascular: Present: S1, S2 Assessment and Plan (1) Monocytosis Status: Resolved 1. This is a 55-year-old male referred for evaluation of leukocytosis. However labs on multiple occasions show normal total WBC count. In December he had a brief episode of mild increase in percentage monocytes on an automated differential. This has since resolved. His total white count and differential are normal. Hematological workup is not necessary at this time. He was advised to follow up with his PCP. Thank you.
--- NOTE | 2020-05-28 11:05 | MHC.HEMONC ---
Patient here for consult. Clinical summary updated with nurse. Provider seen patient. No follow-up needed.
== END | disposition home or self-care (01) ==
LOC: HO.ONC 05-28 09:32
PROVIDERS: PCP Family Medicine; Referring Provider Family Medicine; Visit Provider Internal Medicine
DX: D72.829 Elevated white blood cell count, unspecified (principal)
CPT/HCPCS: 99202